=== PATIENT | female | born 1975 | race Caucasian/White ===

== ENCOUNTER 2017-10-21 17:56 | Observation (INO) | payer SELFPAY ==
[2017-10-21] MEDS ORDERED: Aspirin Low Dose CHEW TAB* 81 MG PO ONE (18:08)
[2017-10-21] MEDS ORDERED: NS 0.9% 1000 ML* 1,000 ML IV SCH (18:15)
[2017-10-21] MEDS ORDERED: Nitroglycerin TAB 0.4 MG* 0.4 MG TAB SL ONE (18:15)
[2017-10-21 18:33] LABS: ABS Basophils 0.1 10^3/ul (0-0.2); ABS Eosinophils 0.1 10^3/ul (0-0.6); ABS Lymphocytes 2.8 10^3/ul (1.0-4.8); ABS Monocytes 0.5 10^3/ul (0-0.8); ABS Neutrophils 5.9 10^3/ul (1.5-7.7); ABS Nucleated RBC 0 10^3/ul; Eosinophil % 0.7 % (0-6); Hematocrit 51 % (35-47); Hemoglobin 17.4 g/dl (12.0-16.0); Lymphocyte % 30.3 % (25-47); Mean Corpuscular HGB Conc 35 g/dl (31-36); Mean Corpuscular Hemoglobin 30 pg (27-31); Mean Corpuscular Volume 87 fL (80-97); Mean Platelet Volume 7 um3 (7.4-10.4); Nucleated Red Blood Cells % 0.2; Platelet Count 392 10^3/ul (150-450); Red Cell Distribution Width 14 % (10.5-15); White Blood Count 9.4 10^3/ul (3.5-10.8)
[2017-10-21] MEDS ORDERED: nitroGLYCERIN DRIP* 25,000 MCG/250 ML BTL IV ONE (18:50)
[2017-10-21 18:54] LABS: EGFR Non-African American 88.8 (>60)
--- NOTE | 2017-10-21 18:58 | RAD ---
INDICATION: Chest pain COMPARISON: Similar chest x-ray March 19, 2007 TECHNIQUE: Single AP portable view of the chest was obtained. FINDINGS: Image quality is compromised due to the relative inferiority of a portable chest x-ray. The heart and mediastinum exhibit normal size and contour. The lungs are grossly clear. There is no evidence of a large pleural effusion. Visualized bones are normal for the patient's age. IMPRESSION: No radiographic evidence for acute cardiopulmonary abnormality on this portable chest x-ray.
[2017-10-21] MEDS ORDERED: Nitroglycerin 2% OINT* 1 GM PAK TOPICAL ONE ×2 (19:28→20:25)
--- NOTE | 2017-10-21 19:31 | HP ---
H&P (Free Text) History and Physical: PCP: none Date/Time: 10/21/2017 1730 CC: L neck pain HPI: Mrs Altamirano is a 41YO obese female 1PPD smoker w/ HX significant HTN for which she has self-D/C'd medications as she "has no insurance". Today around noon she developed L neck aching radiating to the L ear w/ associated N/T of the L fingers, but she is unsure which fingers. She tried OTC pain relievers without improvement, became concerned and called EMS. They gave her SL nitro en route which completely resolved her pain. She did develop some milder L ear pain after arriving to ED, but it spontaneously resolved before receiving another dose of SL nitro. She denies chest pain, SOB, palpitations, N/V, sweats , light-headedness, focal W/N/T, or change in speech/swallow/vision. She is currently symptom-free. Systolic BPs have been 170-200s. PMedHx HTN, not on medications Ambulatory Orders Acetaminophen [Tylenol Extra Strength] 1,000 mg PO Q4HR PRN 07/06/16 Ibuprofen TAB* [Advil TAB*] 200 mg PO Q8H PRN 10/21/17 Allergies MS Hydrochlorothiazide [Hydrochlorothiazide] Allergy (Severe, Verified 07/06/16 17:50) See Comment PARALYSIS - HYPOKALEMIA MS Lisinopril [Lisinopril] Allergy (Severe, Verified 07/06/16 18:33) Swelling PSurgHx none SocHx: 1PPD smoking, 6-12 alcoholic drinks weekly, denies recreational drugs; lives with her ; full code status FamHx: strongly positive for early onset CAD ROS: as above, otherwise reviewed and all were negative vitals: Vital Signs Temp 36.6 C 10/21/17 18:01 Pulse 82 10/21/17 19:05 Resp 16 10/21/17 19:05 BP 193/119 10/21/17 19:05 Pulse Ox 95 10/21/17 19:05 Intake & Output 10/20/17 10/21/17 10/21/17 23:59 11:59 23:59 Weight 102.058 kg Constitutional: NAD, normally developed, obese white female HEENM: atraumatic; sclera/conjunctiva: anicteric/clear; hearing: clinically mildly decreased; AU tympanic membranes are clear; oropharynx: clear, mucosa moist Neck: soft tissue: non-tender to palpation; thyroid: normal Pulmonary: clear to auscultation bilaterally, good aeration, no accessory muscle use CV: RR/RR, normal S1S2, no carotid bruit, no jugular venous distention, 2+ B DP/ PT, no edema Abdominal: soft, non-distended, non-tender, no rebound/guarding/rigidity, normoactive bowel sounds, no hepatosplenomegaly or masses, no costovertebral angle tenderness Musculoskeletal: general: grossly intact, no tenderness w/ palpation Integumental: normal appearance and texture of exposed skin Neurological cranial nerves III/IV/: symmetric light reflex, EOMI/PERRLA V: intact facial sensation & mastication VII: intact facial symmetry VIII: hearing clinically mildly decreased IX/X: symmetric palatal motion, no dysarthria XII: midline tongue protrusion, normal voice articulation motor LUE: 4+/5 proximally, distally, & vegetable preparer strength RUE: 4+/5 proximally, distally, & vegetable preparer strength LLE: 4+/5 proximally & distally RLE: 4+/5 proximally & distally Psychiatric orientation: AA&O to PPS affect: calm mood: cooperative eye contact: fair content: reliable responses: timely insight: poor Testing: Lab Results 10/21/17 10/21/17 10/21/17 Range/Units 18:20 18:20 18:20 WBC 9.4 (3.5-10.8) 10^3/ul RBC 5.80 H (4.0-5.4) 10^6/ul Hgb 17.4 H (12.0-16.0) g/dl Hct 51 H (35-47) % MCV 87 (80-97) fL MCH 30 (27-31) pg MCHC 35 (31-36) g/dl RDW 14 (10.5-15) % Plt Count 392 (150-450) 10^3/ul MPV 7 L (7.4-10.4) um3 Neut % (Auto) 62.4 (38-83) % Lymph % (Auto) 30.3 (25-47) % [place] % (Auto) 5.5 (1-9) % Eos % (Auto) 0.7 (0-6) % Baso % (Auto) 1.1 (0-2) % Absolute Neuts (auto) 5.9 (1.5-7.7) 10^3/ul Absolute Lymphs (auto) 2.8 (1.0-4.8) 10^3/ul Absolute Monos (auto) 0.5 (0-0.8) 10^3/ul Absolute Eos (auto) 0.1 (0-0.6) 10^3/ul Absolute Basos (auto) 0.1 (0-0.2) 10^3/ul Absolute Nucleated RBC 0 10^3/ul Nucleated RBC % 0.2 INR (Anticoag Therapy) 0.90 (0.77-1.02) APTT 29.1 (26.0-36.3) seconds D-Dimer, Quantitative < 200 (Less Than 230) ng/mL Sodium (133-145) mmol/L Potassium (3.5-5.0) mmol/L Chloride (101-111) mmol/L Carbon Dioxide (22-32) mmol/L Anion Gap (2-11) mmol/L BUN (6-24) mg/dL Creatinine (0.51-0.95) mg/dL Est GFR ( Amer) (>60) Est GFR (Non-Af Amer) (>60) BUN/Creatinine Ratio (8-20) Glucose (70-100) mg/dL Lactic Acid (0.5-2.0) mmol/L Calcium (8.6-10.3) mg/dL Magnesium (1.9-2.7) mg/dL Total Bilirubin (0.2-1.0) mg/dL AST (13-39) U/L ALT (7-52) U/L Alkaline Phosphatase (34-104) U/L Total Creatine Kinase (10-223) U/L CK-MB (CK-2) (0.6-6.3) ng/mL Myoglobin (14.3-65.8) ng/mL Troponin I (<0.04) ng/mL B-Natriuretic Peptide 91 ( - 100) pg/mL Total Protein (6.4-8.9) g/dL Albumin (3.2-5.2) g/dL Globulin (2-4) g/dL Albumin/Globulin Ratio (1-3) Urine Opiates Screen (None Detect) Ur Barbiturates Screen (None Detect) Ur Phencyclidine Scrn (None Detect) Ur Amphetamines Screen (None Detect) U Benzodiazepines Scrn (None Detect) Urine Cocaine Screen (None Detect) U Cannabinoids Screen (None Detect) 10/21/17 10/21/17 10/21/17 Range/Units 18:20 18:20 18:58 WBC (3.5-10.8) 10^3/ul RBC (4.0-5.4) 10^6/ul Hgb (12.0-16.0) g/dl Hct (35-47) % MCV (80-97) fL MCH (27-31) pg MCHC (31-36) g/dl RDW (10.5-15) % Plt Count (150-450) 10^3/ul MPV (7.4-10.4) um3 Neut % (Auto) (38-83) % Lymph % (Auto) (25-47) % [place] % (Auto) (1-9) % Eos % (Auto) (0-6) % Baso % (Auto) (0-2) % Absolute Neuts (auto) (1.5-7.7) 10^3/ul Absolute Lymphs (auto) (1.0-4.8) 10^3/ul Absolute Monos (auto) (0-0.8) 10^3/ul Absolute Eos (auto) (0-0.6) 10^3/ul Absolute Basos (auto) (0-0.2) 10^3/ul Absolute Nucleated RBC 10^3/ul Nucleated RBC % INR (Anticoag Therapy) (0.77-1.02) APTT (26.0-36.3) seconds D-Dimer, Quantitative (Less Than 230) ng/mL Sodium 135 (133-145) mmol/L Potassium 3.1 L (3.5-5.0) mmol/L Chloride 101 (101-111) mmol/L Carbon Dioxide 23 (22-32) mmol/L Anion Gap 11 (2-11) mmol/L BUN 6 (6-24) mg/dL Creatinine 0.73 (0.51-0.95) mg/dL Est GFR ( Amer) 114.1 (>60) Est GFR (Non-Af Amer) 88.8 (>60) BUN/Creatinine Ratio 8.2 (8-20) Glucose 142 H (70-100) mg/dL Lactic Acid 2.7 H* (0.5-2.0) mmol/L Calcium 9.3 (8.6-10.3) mg/dL Magnesium 2.1 (1.9-2.7) mg/dL Total Bilirubin 0.90 (0.2-1.0) mg/dL AST 18 (13-39) U/L ALT 29 (7-52) U/L Alkaline Phosphatase 54 (34-104) U/L Total Creatine Kinase 39 (10-223) U/L CK-MB (CK-2) 1.4 (0.6-6.3) ng/mL Myoglobin 16.7 (14.3-65.8) ng/mL Troponin I 0.03 (<0.04) ng/mL B-Natriuretic Peptide ( - 100) pg/mL Total Protein 7.6 (6.4-8.9) g/dL Albumin 4.3 (3.2-5.2) g/dL Globulin 3.3 (2-4) g/dL Albumin/Globulin Ratio 1.3 (1-3) Urine Opiates Screen None detected (None Detect) Ur Barbiturates Screen None detected (None Detect) Ur Phencyclidine Scrn None detected (None Detect) Ur Amphetamines Screen None detected (None Detect) U Benzodiazepines Scrn None detected (None Detect) Urine Cocaine Screen None detected (None Detect) U Cannabinoids Screen None detected (None Detect) ECG, personally reviewed: 3 tracings reviewed; NSR rate 91-99, no ischemia, biphasic T in I; initial tracing was concerning in the anterior leads but is likely artifactual given resolution on 2nd & 3rd tracings CXR, personally reviewed: IMPRESSION: No radiographic evidence for acute cardiopulmonary abnormality on this portable chest x-ray. CT brain WO, personally reviewed: FINDINGS: There is a question of a tiny chronic lacunar infarction in the left basal ganglia. There is no evidence of acute infarction. There is no hemorrhage seen. There is no mass lesion. There is no skull fracture. CTA head/neck, personally reviewed: [place] arteries are patent. There is no arterial occlusion or stenosis. There is no aneurysm identified. No evidence of artriovenous malformation. Visualized portions of the sagittal sinus and transverse sinuses patent. The common carotid arteries and cervical portions of the internal carotid arteries are fully patent. There is no carotid dissection. The vertebral arteries are fully patent. There is no significant vertebral artery stenosis. there is no vertebral artery dissection. Impression: 41F HX HTN off all meds presents with s/s concerning for HTNive urgency more likely TIA than ACS DIAGNOSIS & PLAN Primary HTNive urgency, suspect TIA/less likely ACS : telemetry : 1" nitro paste once : start amlodipine 2.5mg PO daily tonight : PRN hydralazine : trend troponin : supplemental oxygen : ECHO in AM : neurochecks Q2H : Tess Garcia MD cardiology consulted by ED, will evaluate in AM : consider neurology consult in AM : need to establish w/ PCP & take BP meds stressed : supportive care polycythemia, likely 2nd to tobacco use : consider hematology consult : explained risks of thrombosis, ACS, CVA, disability, : advised smoking cessation, low motivation lactic acidosis, likely from severe HTN : trend : no IVFs given HTNive urgency & need to establish BP control Admission Rational: observation for HTNive urgency/TIA DVTp: ALEXIS Code Status: full HCP:
[2017-10-21] MEDS ORDERED: Acetaminophen TAB* 325 MG PO PRN (20:19)
[2017-10-21] MEDS ORDERED: Albuterol 2.5 MG/3 ML NEB.SOL* (0.083%) INH PRN (20:19)
[2017-10-21] MEDS ORDERED: CMCS: Melatonin (NF) 3 MG TAB PO PRN (20:20)
[2017-10-21] MEDS ORDERED: amLODIPine TAB* 5 MG PO ONE (20:23)
[2017-10-21] MEDS ORDERED: Ondansetron INJ* 2 MG/ML VIAL IV PRN (20:23)
--- NOTE | 2017-10-21 21:00 | ED ---
Jovani Herrera Jennifer, scribed for Yo Bradley MD on 10/21/17 at 1841 . HPI Chest Pain - HPI Summary HPI Summary: The patient is a 41 year old female who came to the ED by ambulance with chest pain radiating up the left neck and intermittent numbness in the left arm that began at around 12:00 today. She received nitroglycerin and aspirin in the ambulance and currently denies pain in the ED. She denies nausea, sweatiness, and shortness of breath. The patient has a history of hypertension but does not take medicine for it because she does not have insurance. - History of Current Complaint Chief Complaint: EDChestPainROMI Time Seen by Provider: 10/21/17 18:03 Hx Obtained From: Patient Hx Last Menstrual Period: 07/03/16 Onset/Duration: Started Hours Ago - about 6 hours ago, Still Present Timing: Intermittent - intermittent numbness in left arm Initial Severity: Mild Current Severity: Mild Pain Intensity: 0 Pain Scale Used: 0-10 Numeric Chest Pain Location: Diffuse Chest Pain Radiates: Yes Chest Pain Radiates To:: Arm - left arm, Neck - left neck Character: Other: - Numbness Aggravating Factor(s): Nothing Alleviating Factor(s): Nothing Associated Signs and Symptoms: Positive: Chest Pain. Negative: Shortness of Breath, Nausea, Other: - sweating - Allergy/Home Medications Allergies/Adverse Reactions: Allergies Allergy/AdvReac Type Severity Reaction Status Date / Time MS Hydrochlorothiazide Allergy Severe See Comment Verified 07/06/16 17:50 [Hydrochlorothiazide] MS Lisinopril [Lisinopril] Allergy Severe Swelling Verified 07/06/16 18:33 Home Medications: Home Medications Ibuprofen TAB* [Advil TAB*] 200 mg PO Q8H PRN 10/21/17 [History Confirmed ] PMH/Surg Hx/FS Hx/Imm Hx Endocrine/Hematology History: Denies: Hx Diabetes, Hx Thyroid Disease Cardiovascular History: Reports: Hx Hypertension Denies: Hx Hypercholesterolemia Respiratory History: Reports: Hx Asthma Denies: Hx Chronic Obstructive Pulmonary Disease (COPD) GI History: Comment Only: Hx Ulcer - gerd Psychiatric History: Reports: Hx Anxiety - Surgical History Surgery Procedure, Year, and Place: C section, ANKLE SURGERY (RIGHT) Infectious Disease History: No Infectious Disease History: Denies: Hx Hepatitis, Hx Human Immunodeficiency Virus (HIV), History Other Infectious Disease, Traveled Outside the [place] in Last 30 Days - Family History Known Family History: Positive: Hypertension - Paternal, Diabetes - Social History Alcohol Use: Weekly Substance Use Type: Reports: None Smoking Status (MU): Heavy Every Day Tobacco Smoker Type: Cigarettes Amount Used/How Often: 1/2 ppd or more Review of Systems Negative: Skin Diaphoresis Positive: Chest Pain Negative: Shortness Of Breath Negative: Nausea Positive: Numbness - left arm All Other Systems Reviewed And Are Negative: Yes Physical Exam - Summary Physical Exam Summary: General: well-appearing, no pain distress Skin: warm, color reflects adequate perfusion, dry Head: normal Eyes: EOMI, STEFFANIE ENT: normal Neck: supple, nontender Respiratory: CTA, breath sounds present Cardiovascular: RRR Abdomen: soft, nontender Bowel: present Musculoskeletal: normal, strength/ROM intact Neurological: normal, sensory/motor intact, A&O x3 Psychological: affect/mood appropriate Triage Information Reviewed: Yes Vital Signs On Initial Exam: Initial Vitals Temp Pulse Resp BP Pulse Ox 98 F 94 18 182/118 95 10/21/17 18:01 10/21/17 18:01 10/21/17 18:01 10/21/17 18:01 10/21/17 18:01 Vital Signs Reviewed: Yes Diagnostics - Vital Signs Vital Signs Temp Pulse Resp BP Pulse Ox 10/21/17 18:05 93 97 10/21/17 18:01 98 F 94 18 182/118 95 - Laboratory Lab Results: Lab Results 10/21/17 Range/Units 18:20 WBC 9.4 (3.5-10.8) 10^3/ul RBC 5.80 H (4.0-5.4) 10^6/ul Hgb 17.4 H (12.0-16.0) g/dl Hct 51 H (35-47) % MCV 87 (80-97) fL MCH 30 (27-31) pg MCHC 35 (31-36) g/dl RDW 14 (10.5-15) % Plt Count 392 (150-450) 10^3/ul MPV 7 L (7.4-10.4) um3 Neut % (Auto) 62.4 (38-83) % Lymph % (Auto) 30.3 (25-47) % [place] % (Auto) 5.5 (1-9) % Eos % (Auto) 0.7 (0-6) % Baso % (Auto) 1.1 (0-2) % Absolute Neuts (auto) 5.9 (1.5-7.7) 10^3/ul Absolute Lymphs (auto) 2.8 (1.0-4.8) 10^3/ul Absolute Monos (auto) 0.5 (0-0.8) 10^3/ul Absolute Eos (auto) 0.1 (0-0.6) 10^3/ul Absolute Basos (auto) 0.1 (0-0.2) 10^3/ul Absolute Nucleated RBC 0 10^3/ul Nucleated RBC % 0.2 Result Diagrams: 10/21/17 18:20 10/21/17 18:20 Lab Statement: Any lab studies that have been ordered have been reviewed, and results considered in the medical decision making process. - Radiology CXR Xray Interpretation: No Acute Changes - No radiographic evidence for acute cardiopulmonary abnormality on this portable chest x-ray. Dr. Bradley has reviewed this report. Radiology Interpretation Completed By: Radiologist - EKG 17:56 Cardiac Rate: NL EKG Rhythm: Sinus Rhythm - 91 BPM Ectopy: None EKG Interpretation: ST elevation in anterior leads, LVH 17:57 Cardiac Rate: NL EKG Rhythm: Sinus Rhythm - 93 BPM Ectopy: None EKG Interpretation: ST elevation in anterior leads, LVH EKG Comparison: No Significant Change 18:23 Cardiac Rate: NL EKG Rhythm: Sinus Rhythm - 99 BPM Ectopy: None EKG Interpretation: ST elevation in anterior leads EKG Comparison: No Significant Change Chest Pain Course/Dx - Course Course Of Treatment: BP noted and advised to follow up with PCP. Allergies noted. Medications reviewed. DISCUSSED WITH BOTH DR ASENCOI AND DR MCKEON. PATIENT CHEST PAIN FREE IN THE ED. NO SIGNIFICANT CHANGES IN THE EKG IN THE ED. WITH A NEGATIVE TROPONIN AFTER 5 HOURS OF PAIN, WILL TREAT THE HYPERTENSION AND ADMIT TO THE HOSPITALIST. - Diagnoses Provider Diagnoses: Uncontrolled hypertension, Chest pain, Neck pain - Provider Notifications Discussed Care Of Patient With: Martín Asencio Time Discussed With Above Provider: 19:39 Instructed by Provider To: Other - Dr. Asencio, cardiology, recommended consulting Dr. Arceo, interventionalist. Dr. Arceo, interventionalist, recommends keeping the patient's chest pain free and controlling her hypertension. If troponin is positive, call back Dr. Arceo. If troponin is negative, continue to treat for hypertension and admit to hospitalist. - Critical Care Time Critical Care Time: 30-74 min Discharge - Discharge Plan Condition: Stable Disposition: ADMITTED TO [facility] Referrals: Shon Duarte MD [Primary Care Provider] - 3 Days Additional Instructions: Your blood pressure was elevated during todays visit; please follow up with your primary care provider within a week for further evaluation. The documentation as recorded by the Jovani peres Jennifer accurately reflects the service I personally performed and the decisions made by me, Yo Bradley MD.
[2017-10-21] MEDS ORDERED: Iohexol 350* (CONTRAST) 500 ML MDV IV ONE (21:10)
[2017-10-21] MEDS: Docusate CAP* 100 MG PO SCH (22:14)
[2017-10-21] MEDS: hydrALAZINE IV* 20 MG/ML VIAL IV PRN (22:58)
[2017-10-22 05:27] LABS: Hematocrit 44 % (35-47); Mean Corpuscular HGB Conc 34 g/dl (31-36); Mean Corpuscular Hemoglobin 30 pg (27-31); Mean Corpuscular Volume 87 fL (80-97); Mean Platelet Volume 7 um3 (7.4-10.4); Platelet Count 325 10^3/ul (150-450); Red Blood Count 5.04 10^6/ul (4.0-5.4); Red Cell Distribution Width 14 % (10.5-15); White Blood Count 9.7 10^3/ul (3.5-10.8)
[2017-10-22 05:46] LABS: EGFR Non-African American 103.3 (>60)
[2017-10-22] MEDS ORDERED: Omeprazole CAP* 20 MG PO SCH (06:00)
[2017-10-22] MEDS ORDERED: amLODIPine TAB* 5 MG PO SCH (09:00)
[2017-10-22] MEDS ORDERED: Aspirin EC Low Dose* 81 MG TAB.EC PO SCH (09:00)
--- NOTE | 2017-10-22 09:02 | RAD ---
CPT II: CPT II Codes: 3100F INDICATION: Chest pain radiating up left neck and down left arm. COMPARISON: None TECHNIQUE: A CT angiogram of the head and neck was performed with 80 cc of Omnipaque 350. Contiguous axial sections were obtained from the thoracic inlet through the [place]. Images were reconstructed in the sagittal, coronal planes and in a 3-D volume rendered format. The distal cervical internal carotid artery diameter is used as the denominater for stenosis measurement. CTA NECK: The common and internal carotid arteries are patent without hemodynamically significant stenosis. Right: The common carotid artery measures 7 mm in diameter. Above the carotid bifurcation the internal carotid artery measures 6 mm in diameter. This yields approximately 16% degree stenosis however there is no significant atherosclerotic disease at the carotid bulb. Left: Below the carotid bulb the common carotid artery measures 6 mm in short axis diameter. The carotid bulb measures just under 7 mm in diameter yielding 0% degree stenosis. The vertebral arteries are patent without gross abnormality. CTA of the brain: The internal carotid, anterior and middle cerebral arteries appear are patent without high grade stenosis or occlusion. The vertebral, basilar and posterior cerebral arteries appear patent without high grade stenosis or occlusion. The [place] is complete with bilateral posterior communicating arteries identified. No focal luminal filling defect, aneurysm or vascular malformation is seen. NON-ARTERIAL FINDINGS: There is mild mucosal thickening at the dependent portion of the left maxillary sinus. IMPRESSION: Normal CT angiography of the head and neck.
[2017-10-22] MEDS: Docusate CAP* 100 MG PO SCH (09:39)
[2017-10-22] MEDS: hydrALAZINE IV* 20 MG/ML VIAL IV PRN (12:12)
[2017-10-22] MEDS ORDERED: amLODIPine TAB* 5 MG PO ONE (12:23)
--- NOTE | 2017-10-22 13:06 | ECHO ---
Patient: ERA GRAMAJO [facility] Rec#: [id number] : 1975 Date: 10/22/2017 Age: 41y Height: 167.64 cm / 66.0 in Weight: 91.17 kg / 200.9 lbs Sex: F BSA: 2 Room#: [facility] Admit Date#: 10/21/2017 Type: Inpatient Referring: Sherif Sandoval MD Reading: Martín Garcia MD Production Posting Clerk: Sophia OroscoALLEN CC: Shon Duarte MD Transthoracic Echocardiogram Indication: Chest pain BP: 149/71 HR: 64 Rhythm: NSR Findings History: HTN non-compliant with meds, obese, smoker. Technical Comments: The study quality is fair. The study is technically limited due to patient body habitus. Completed at 1300. Left Ventricle: The left ventricular chamber size is normal. Moderate concentric left ventricular hypertrophy is observed. Global left ventricular wall motion and contractility are within normal limits. There is normal left ventricular systolic function. The estimated ejection fraction is 60-65%. There is no consistent Doppler evidence of clinically significant diastolic dysfunction. Left Atrium: The left atrium is mildly dilated. Right Ventricle: The right ventricle wall thickness is mildly increased. The right ventricular cavity size is normal. The right ventricular global systolic function is normal. Right Atrium: The right atrium is mildly dilated. Aortic Valve: The aortic valve is trileaflet. The aortic valve leaflets are mildly thickened. There is a trace of aortic regurgitation. There is borderline aortic stenosis present. Mitral Valve: The mitral valve leaflets are mildly thickened. There is a trace of mitral regurgitation. There is no evidence of mitral stenosis. Tricuspid Valve: The tricuspid valve leaflets are normal. There is trace tricuspid regurgitation. The right ventricular systolic pressure is estimated at 22 mmHg. There is evidence that pulmonary hypertension may be underestimated. There is no tricuspid stenosis. Pulmonic Valve: The pulmonic valve appears normal. There is a trace pulmonic regurgitation. There is no pulmonic stenosis. Pericardium: There is no significant pericardial effusion. A pericardial fat pad is visualized. Aorta: There is no dilatation of the ascending aorta. There is no dilatation of the aortic arch. The aortic root is normal in size. Pulmonary Artery: The main pulmonary artery appears normal. Venous: The inferior vena cava appears normal in size. There is a greater than 50% respiratory change in the inferior vena cava dimension. Summary: There was not any prior study for comparison. Conclusions The left ventricular chamber size is normal. Moderate concentric left ventricular hypertrophy is observed. The estimated ejection fraction is 60-65%. The left atrium is mildly dilated. There is a trace of aortic regurgitation. There is borderline aortic stenosis present. There is a trace of mitral regurgitation. There is trace tricuspid regurgitation. There is a trace pulmonic regurgitation. Measurements Name Value Normal Range RVIDd (AP) 2D 3.5 cm (0.9 - 2.6) RVDdMajor (2D) 3.7 cm (2.2 - 4.4) RAd ISD 4CH 4.4 cm (3.4 - 4.9) RA (A4C)W 4.7 cm (2.9 - 4.6) IVSd (2D) 1.4 cm (0.6 - 1) LVPWd (2D) 1.5 cm (0.6 - 1) LVIDd (2D) 4.3 cm (3.6 - 5.4) LVIDs (2D) 3 cm - LV FS (2D) 29 % (25 - 45) Aortic Annulus 2 cm (1.4 - 2.6) Ao root diameter (2D) 2.8 cm (2.1 - 3.5) Ascending Ao 3 cm (2.1 - 3.4) Aortic arch 2.2 cm (1.8 - 3.4) LA dimension (AP) 2D 3.7 cm (2.3 - 3.8) LAd ISD 4CH 5.7 cm (2.9 - 5.3) LA ISD 4CH W 4.8 cm (2.5 - 4.5) Name Value Normal Range LA ESV SP 4CH (A/L) 75 ml - LA ESV SP 2CH (A/L) 62 ml - LA ESV BP (A/L) 70 ml - LA ESV BP (A/L) index 35 ml/m2 - LA ESV SP 4CH (MOD) 71 ml - LA ESV SP 2CH (MOD) 57 ml - Name Value Normal Range MV E-wave Vmax 0.78 m/sec - MV deceleration time 154.1 msec - MV A-wave Vmax 0.93 m/sec - MV E:A ratio 0.84 ratio - LV septal e' Vmax 0.06 m/sec - LV lateral e' Vmax 0.06 m/sec - LV E:e' septal ratio 13 ratio - LV E:e' lateral ratio 13 ratio - Name Value Normal Range AV Vmax 2.14 m/sec - AV VTI 34.5 cm - AV peak gradient 18.48 mmHg - AV mean gradient 8.5 mmHg - LVOT diameter 2 cm - LVOT Vmax 1.3 m/sec - LVOT VTI 24.87 cm - LVOT peak gradient 7.23 mmHg - LVOT mean gradient 4.66 mmHg - DOI (VTI) 0.72 ratio - TALISHA (continuity Vmax) 1.9 cm2 - TALISHA (continuity VTI) 2.3 cm2 - JACLYN Vmax 1.2 m/sec - Name Value Normal Range TR Vmax 2.1 m/sec - TR peak gradient 19 mmHg - RAP 3 mmHg - RVSP 22 mmHg - IVC diameter 1.7 cm - Name Value Normal Range PV Vmax 1.1 m/sec - PV peak gradient 4.86 mmHg -
[2017-10-22] MEDS ORDERED: hydrALAZINE TAB* 25 MG PO SCH (15:00)
[2017-10-22 15:21] VITALS: BP 178/94
--- NOTE | 2017-10-22 23:39 | CONS ---
CC: Hospitalist Service; Dr. Garcia CARDIOLOGY CONSULTATION: DATE OF CONSULTATION: 10/22/17 HISTORY OF PRESENT ILLNESS: I was asked by hospitalist service to see this 41- year- old female patient with longstanding history of systemic arterial hypertension, 1 pack per day smoker for many years. She states that about 7 months ago, she stopped her blood pressure medications. According to her, she was taking 3 blood pressure medications, she does not recall the names because she had no insurance. Apparently, yesterday she had some ear pain, some neck pain on the left side, radiated to her left ear and presented to the emergency room. She was found to have significant blood pressure elevation with systolic between 170 to 200. She had some borderline ST abnormalities probably consistent with hypertensive heart disease. Cardiology consult was further requested because of her hypertension and EKG abnormalities. She gives no symptoms of chest pain. No nausea. No vomiting. No hematochezia. No skin rash. No abdominal pain. No syncope. No fever. No chills. No swelling in the lower extremities. No orthopnea is appreciated. She gives no history of diabetes mellitus. No hyperlipidemia. She does have obesity. She is not aware of a sleep apnea evaluation. PAST MEDICAL HISTORY: Includes systemic arterial hypertension. PAST SURGICAL HISTORY: Unremarkable. MEDICATIONS: She was not on medications as an outpatient. Her medications as an inpatient include: 1. Acetaminophen or Tylenol 650 mg p.o. q.6 hours p.r.n. 2. Albuterol. 3. Amlodipine 10 mg daily. 4. Aspirin 81 mg daily. 5. Hydralazine 10 mg IV q.4 hours p.r.n. for hypertension. 6. Omeprazole 20 mg daily. 7. Zofran 4 mg IV q.6 hours. ALLERGIES: She is allergic to HYDROCHLOROTHIAZIDE, severe giving her hypokalemia; LISINOPRIL, severe giving her swelling. FAMILY HISTORY: She states that her father and his brother had history of coronary artery disease. SOCIAL HISTORY: One pack a day of smoking. She drinks alcohol on occasion. No history of illicit drug use. She lives with her . REVIEW OF SYSTEMS: Review of all other systems essentially is negative. PHYSICAL EXAMINATION: On exam, she is awake, alert, and oriented. She is not in acute distress. Vital Signs: Current blood pressure is 183/93, pulse 72, she is in sinus rhythm. She is afebrile. Head: On exam, normocephalic, atraumatic head. Ears, Nose, and Throat: Essentially benign. Neck: Supple. JVP is not elevated. No carotid bruits. No masses in the neck is appreciated. Chest: Clear to auscultation. No rales, no wheezes, no added sounds appreciated. Heart: Normal. Regular S1, S2. No added sounds. No gallops, no rubs. Abdomen: Benign, soft. Positive bowel sounds. Extremities: No edema. No cyanosis. No clubbing. Skin exam is normal. Psych: Normal affect and mood. HEEL SPRAYER: No focal deficit is appreciated. LABORATORY DATA/DIAGNOSTIC STUDIES: White blood cell 9.7, hemoglobin 15, hematocrit 44, platelets are 325,000. Sodium 134; potassium 3.5, it was 3.1; chloride 103. BUN 5, creatinine 0.64. Glucose 107. Troponins were 0.04 and 0.06. She is chest pain free. Her serial EKGs demonstrated LVH with secondary ST-T abnormalities. No definite ST elevations appreciated. Initial troponin 0.03. LFTs are normal. CK is normal. CK-MB is normal. Her chest x-ray, no cardiopulmonary disease. Her CTA of the head, normal CT angio of the head. IMPRESSION: The patient is a 41-year-old female with: 1. Known history of systemic arterial hypertension. She stopped her blood pressure medications on her own about 7 months ago because "no insurance." 2. Hypertensive urgency. 3. Abnormal EKG most probably related to hypertensive heart disease. 4. Obesity. 5. Low potassium raising concerns for adrenal disease. 6. Her echo showed her to have moderate left ventricular hypertrophy with hypertensive heart disease and normal left ventricular systolic function. EF 60 % to 65%. 7. Trace aortic insufficiency, borderline aortic stenosis and trace mitral insufficiency, trace tricuspid insufficiency. 8. Unknown sleep apnea status. PLAN: I discussed her with Dr. Thompson. This patient needs to reestablish blood pressure medications, I made her aware of the seriousness of her hypertension and hypertensive heart disease and she needs to be on regular blood pressure medications, Norvasc is currently at 10 mg once a day. I do recommend hydralazine p.o., starting at 25 mg q.8 hours and follow her blood pressure very closely. She needs to do aggressive lifestyle modification with low-salt low-fat diet, attempts lose to weight, physical activity as tolerated. She needs to quit smoking, which I talked to her about this. Given her low potassium, we will obtain serum cortisol level and we will obtain TSH level as well. At some point once her blood pressure is well controlled, she will need risk stratification with noninvasive stress testing given her comorbidities and risk factors for coronary artery disease. I answered all her concerns and questions up to her satisfaction. [id number]/[facility] #: [id number] BETO
[2017-10-23] MEDS ORDERED: amLODIPine TAB* 5 MG PO SCH (09:00)
--- NOTE | 2017-10-23 11:39 | DS ---
DISCHARGE SUMMARY: DATE OF ADMISSION: 10/21/17 DATE OF DISCHARGE: 10/22/17 ADMITTING PROVIDER: Sherif Sandoval MD ATTENDING PHYSICIAN: Niraj Thompson MD PRIMARY CARE PHYSICIAN: None, has been discharged from the practice of Dr. Duarte given her nonmedical insurance status. CHIEF COMPLAINT: Left neck pain. PRINCIPAL DIAGNOSIS: Hypertensive urgency. HISTORY OF PRESENT ILLNESS AND HOSPITAL COURSE: Aleida Altamirano is a 41-year-old obese, 1-pack per day smoker with history of hypertension, previously on amlodipine and a diuretic for which she does not recall (she has also prior been on lisinopril, but had poor reaction) and she has been off that for approximately 7 months as she lost her insurance. On the day of admission, she developed left neck pain radiating to the left ear and was associated with some numbness and tingling of her left fingers, which she often gets some similar paresthesias when she gets anxious. She tried [id number] pain relievers without relief, got sublingual nitro with EMS en route and her pain had resolved by a presentation to the ED. Her blood pressures initially were found to be 182/118 and peaked at 203/123. She was admitted for a hypertensive urgency. She got an additional sublingual nitro in the emergency room, nitroglycerin 1-inch of 2% ointment was placed on her chest. She denied chest pain, chest tightness or shortness of breath and was started on amlodipine 2.5 mg that night. She had some initial EKGs, which demonstrated some repolarization abnormalities anteriorly initially and then eventually resolved into some T-wave inversions V5 through V6. Dr. Garcia of Cardiology consulted on hospital day #2. She had gotten a head CT/noncontrast brain, which showed patent vertebral arteries, patent carotid arteries without hemodynamically significant stenosis. A normal CT angiography of the head and neck on the imaging on-call, read of that study there was some concern for a possible chronic lacunar infarct of the left basal ganglia that was tiny. She had an echocardiogram done on hospital day #2, which showed preserved ejection fraction 60% to 65%, there was no consistent Doppler evidence of clinically significant diastolic dysfunction. She had moderate concentric left ventricular hypertrophy. She had trace mitral, tricuspid and pulmonic regurgitations and aortic regurgitations. The patient was still hypertensive. On hospital day #2, her amlodipine was increased to a total of 10 mg daily and then addition of hydralazine 25 mg p.o. t.i.d. q.8 hours. She was noted by Dr. Garcia to be hypokalemic initially at 3.1 on admission and he recommended TSH and cortisol testing, which were 3.9 and 7.55 respectively. He also recommended persuing evaluation of renal artery stenosis, pheochromocytoma and other etiologies of hypertension. The patient has some degree of what mother described as social anxiety disorder, was wanting to leave the hospital almost immediately on hospital day #2 and would not consent to stay for any further testing, in fact got quite distraught upset with even the prospect of staying another day in the hospital. She is being discharged with followup strongly encouraged (and emphasized with mother who is quite understanding). The patient needs to get further evaluation and treatment for her high blood pressure and reestablish care with a primary care physician as soon as possible. She was recommended getting an outpatient sleep study and nuclear stress test by Dr. Garcia as well and of course, smoking cessation was strongly encouraged, though she was not amenable to stop smoking "right now." Her troponins of note were 0.03, 0.04 and 0.06 and she did not consent to stay overnight for nuclear stress testing. DISCHARGE MEDICATIONS: Include: 1. Amlodipine 10 mg p.o. daily (new). 2. Aspirin 81 mg daily (new). 3. Hydralazine 25 mg p.o. t.i.d. (new). 4. Tylenol 1000 mg p.o. q.4 hours p.r.n., max dose 4 g daily (old). DISCHARGE DIET: Heart healthy. ACTIVITY LEVEL: No restrictions. FOLLOWUP: Please establish care with a new primary care provider within 5 days. I strongly encouraged outpatient nuclear stress testing and Dr. Garcia has also recommended sleep study and CT angiogram versus MRI of the bilateral kidneys to rule out other causes of hypertension along with recommendation for a 24-hour urine study for pheochromocytoma workup. TIME SPENT: On discharge 48 minutes. [id number]/[facility] #: [id number] MTDD
== END 2017-10-22 16:06 | disposition home or self-care (01) ==
LOC: ED 17:56 → MEDTELE 21:09
PROVIDERS: ADMIT Hospitalist; ATTEND Internal Medicine
DX: I10 Essential (primary) hypertension (principal); R07.9 Chest pain, unspecified; M54.2 Cervicalgia; R20.0 Anesthesia of skin; F17.210 Nicotine dependence, cigarettes, uncomplicated; Z86.79 Personal history of other diseases of the circulatory system; Z79.82 Long term (current) use of aspirin
CPT/HCPCS: 36415; 70496; 70498; 71045; 80048; 80053; 80307; 82533; 82550; 82553; 83605; 83735; 83874; 83880; 84443; 84484; 85025; 85027; 85379; 85610; 85730; 93005; 93306; 94760; 96365; 96366; 99285; 99406; A9270-GY; G0378; J0360; Q9967

== ENCOUNTER 2018-09-14 16:55 | Emergency (ER) | payer SELFPAY ==
--- NOTE | 2018-09-14 17:22 | UC ---
Dental HPI - HPI Summary HPI Summary: 42-year-old female presents with 4 day history of right upper dental pain. Describes as a constant severe throbbing. Aggravated by cold. Denies alleviating factors. Has tried ibuprofen without relief. Does not have a dentist appointment scheduled at this time. Denies fever, chills, facial swelling, trismus, dysphagia, or difficulty breathing. - History of Current Complaint Chief Complaint: UCDentalProblem Stated Complaint: TOOTH ACHE Time Seen by Provider: 09/14/18 17:03 Hx Obtained From: Patient Hx Last Menstrual Period: 07/03/16 Pain Intensity: 10 - Allergies/Home Medications Allergies/Adverse Reactions: Allergies Allergy/AdvReac Type Severity Reaction Status Date / Time hydrochlorothiazide Allergy Anaphylatic Verified 09/14/18 17:04 Shock lisinopril Allergy Anaphylatic Verified 09/14/18 17:04 Shock PMH/Surg Hx/FS Hx/Imm Hx Cardiovascular History: Hypertension, Other - LVH Psychological History: Anxiety - Surgical History Surgical History: Yes Surgery Procedure, Year, and Place: C section, ANKLE SURGERY (RIGHT) - Family History Known Family History: Positive: Hypertension - Paternal, Diabetes - Social History Occupation: Unemployed Lives: With Family Alcohol Use: Weekly Substance Use Type: None Smoking Status (MU): Heavy Every Day Tobacco Smoker Type: Cigarettes Amount Used/How Often: 1/2 ppd or more - Immunization History Hx Tetanus, Diphtheria Vaccination: Yes Review of Systems All Other Systems Reviewed And Are Negative: Yes Constitutional: Negative: Fever, Chills Eyes: Negative: Drainage, Eye Redness ENT: Positive: Dental Pain - See HPI. Negative: Sore Throat, Ear Ache, Nasal Discharge, Sinus Congestion, Sinus Pain/Tenderness Respiratory: Negative: Shortness Of Breath Cardiovascular: Negative: Chest Pain Gastrointestinal: Negative: Abdominal Pain, Vomiting, Diarrhea, Nausea Is Patient Immunocompromised?: No Physical Exam - Summary Physical Exam Summary: GENERAL APPEARANCE: Well developed, obese, alert and cooperative female who appears to be in discomfort holding the right side of her face. HEAD: Atraumatic. normocephalic. No facial swelling noted. EYES: Conjunctiva clear. No discharge. Vision is grossly intact. EARS: External auditory canals and tympanic membranes clear, hearing grossly intact. NOSE: No nasal discharge. THROAT: Pharynx normal. No inflammation, swelling, exudate, or lesions. Multiple dental caries with significant decay of several teeth including fractured right first upper molar. Mild gingival erythema without induration, fluctuance, or drainage noted. NECK: Neck supple, non-tender without lymphadenopathy. CARDIAC: Normal S1 and S2. No S3, S4 or murmurs. Rhythm is regular. There is no peripheral edema, cyanosis or pallor. Extremities are warm and well perfused. Capillary refill is less than 2 seconds. LUNGS: Clear to auscultation and percussion without rales, rhonchi, wheezing or diminished breath sounds. ABDOMEN: Positive bowel sounds. Soft, nondistended, nontender. No guarding or rebound. No masses or hepatosplenomegally. MUSKULOSKELETAL: ROM intact to all extremities. No joint erythema or tenderness. Normal muscular development. Normal gait. SKIN: Skin normal color, texture and turgor with no lesions or eruptions. Triage Information Reviewed: Yes Vital Signs: Initial Vital Signs Temp 99.2 F 09/14/18 16:59 Pulse 89 09/14/18 16:59 Resp 19 09/14/18 16:59 BP 199/100 09/14/18 16:59 Pulse Ox 100 09/14/18 16:59 Vital Signs Reviewed: Yes Dental Complaint Course/Dx - Course Course Of Treatment: 42-year-old female presents with 4 day history of right upper dental pain. Describes as a constant severe throbbing. Aggravated by cold. Denies alleviating factors. Has tried ibuprofen without relief. Does not have a dentist appointment scheduled at this time. Denies fever, chills, facial swelling, trismus, dysphagia, or difficulty breathing. Afebrile. Noted to be hypertensive triage however patient appears to be in significant discomfort holding the right side of her face. Exam revealed multiple dental caries with significant decay of several teeth including fractured right first upper molar. Mild gingival erythema without induration, fluctuance, or drainage noted. No facial swelling or trismus. [facility] was consulted and safe to prescribe narcotic pain medication. Reference #: [id number]. Patient was given a dose of hydrocodone-acetaminophen 5 mg\325 mg 1 tablet in the clinic for pain management. Will discharge her on a course of amoxicillin 500 mg twice a day 10 days, recommend continued use of ibuprofen 600 mg every 8 hours for pain, and we'll provide her with a 2 day course of hydrocodone- acetaminophen 5 mg\325 mg 1 tablet 8 hours as needed for severe pain. She was counseled to make a dental appointment at next available appointment. She was given a dental list including local providers who are for no-cost, low cost, and sliding scale payments. She was also counseled to follow up with her primary care provider as soon as possible for recheck of her blood pressure and to discuss restarting her antihypertensives. Warning symptoms were discussed with the patient. Verbalizes understanding and agrees with plan of care. - Differential Dx/Diagnosis Differential Diagnosis/Dx: Dental Abscess, Dental Caries, Fractured Tooth, Odontogenic Pain, Peridontic Disease Provider Diagnosis: Pain due to dental caries Discharge - Sign-Out/Discharge Documenting (check all that apply): Patient Departure All imaging exams completed and their final reports reviewed: No Studies - Discharge Plan Condition: Stable Disposition: HOME Prescriptions: Amoxicillin 500 mg PO BID #20 cap Hydrocodone/Acetaminophen [Hydrocodone-Acetamin 5-325 mg] 1 each PO Q8HR PRN #6 tablet MDD 3 PRN Reason: Pain (Dental) Patient Education Materials: Toothache (ED) Referrals: Shon Duarte MD [Primary Care Provider] - As Soon As Possible (For blood pressure recheck.) Additional Instructions: We will start you on an antibiotic to treat for a possible dental infection. Take amoxicillin 500 mg 1 cap twice a day for 10 days. Be sure to finish the entire prescription even if you are feeling better. Continue to use ibuprofen 600 mg every 8 hours as needed for pain. Take hydrocodone-acetaminophen 5 mg/325 mg 1 tab every 8 hours as needed for severe pain. We gave the first dose in the clinic. This medication causes drowsiness therefore do not take and drive or operate machinery. Use good oral hygiene. Rinse your mouth with a salt water solution after every meal and at bedtime to help remove any debris. Make an appointment with the dentist at next available appointment. You have been provided a list of local dentists including those who offer low-cost, no cost, or sliding scale payments. Please contact them as soon as possible. Your blood pressure was elevated in the clinic today. You should follow up with your primary care provider as soon as possible to have this rechecked and discuss restarting your blood pressure medications. Seek immediate medical attention in the emergency room if you develop fever greater than 100.5 F, have increased facial swelling, are unable to open your mouth, have difficulty swallowing, difficulty breathing, or any worsening of symptoms. - Billing Disposition and Condition Condition: STABLE Disposition: Home
[2018-09-14] MEDS ORDERED: HYDROcodone/ACETAMIN 5-325 MG* 1 TAB PO ONE (17:29)
[2018-09-14 17:56] VITALS: BP 190/112
== END 2018-09-14 18:00 | disposition home or self-care (01) ==
LOC: UCEAST 16:55
DX: K02.9 Dental caries, unspecified (principal); K08.89 Other specified disorders of teeth and supporting structures; I10 Essential (primary) hypertension; F17.210 Nicotine dependence, cigarettes, uncomplicated; Z88.8 Allergy status to other drugs, medicaments and biological substances
CPT/HCPCS: 99212; G0463

== ENCOUNTER 2018-10-02 19:50 | Emergency (ER) | payer SELFPAY ==
[2018-10-02] MEDS ORDERED: oxyCODONE TAB* 5 MG TAB PO ONE (20:14)
[2018-10-02] MEDS ORDERED: cloNIDine TAB* 0.1 MG PO ONE (20:40)
[2018-10-02 21:56] VITALS: BP 261/150
[2018-10-02] MEDS ORDERED: amLODIPine TAB* 5 MG PO ONE (22:02)
[2018-10-02] MEDS ORDERED: Amoxicillin PO (*) 250 MG CAP PO ONE (22:07)
[2018-10-02] MEDS ORDERED: Amoxicillin/Clavulanate TAB* 875 MG PO ONE (22:09)
[2018-10-02] MEDS ORDERED: HYDROcodone/ACETAMIN 5-325 MG* 1 TAB PO ONE (22:13)
--- NOTE | 2018-10-02 22:13 | ED ---
Throat Pain/Nasal Congestion - HPI Summary HPI Summary: Patient presents for sudden onset dental pain and lower right side 4 hours. States filling fell out over [place], has not seen dentist. Elevated but pressure in triage, states history of hypertension but not taking medication due to lack of insurance. Cough, sore throat, CP, SOB, N/V/D, abdominal pain, change in urine, change in BM. - History of Current Complaint Chief Complaint: EDDentalPain Time Seen by Provider: 10/02/18 20:05 Hx Obtained From: Patient Onset/Duration: Sudden Onset Severity: Severe Associated Signs And Symptoms: Positive: Negative Cough: None - Allergies/Home Medications Allergies/Adverse Reactions: Allergies Allergy/AdvReac Type Severity Reaction Status Date / Time hydrochlorothiazide Allergy Anaphylatic Verified 10/02/18 19:59 Shock lisinopril Allergy Anaphylatic Verified 10/02/18 19:59 Shock PMH/Surg Hx/FS Hx/Imm Hx Endocrine/Hematology History: Denies: Hx Diabetes, Hx Thyroid Disease Cardiovascular History: Reports: Hx Hypertension Denies: Hx Hypercholesterolemia Respiratory History: Reports: Hx Asthma Denies: Hx Chronic Obstructive Pulmonary Disease (COPD) GI History: Reports: Hx Gastroesophageal Reflux Disease Comment Only: Hx Ulcer - gerd Sensory History: Denies: Hx Contacts or Glasses, Hx Hearing Aid Opthamlomology History: Denies: Hx Contacts or Glasses Psychiatric History: Reports: Hx Anxiety - Surgical History Surgery Procedure, Year, and Place: C section, ANKLE SURGERY (RIGHT) Infectious Disease History: No Infectious Disease History: Denies: Hx Hepatitis, Hx Human Immunodeficiency Virus (HIV), History Other Infectious Disease, Traveled Outside the [place] in Last 30 Days - Family History Known Family History: Positive: Hypertension - Paternal, Diabetes - Social History Alcohol Use: Weekly Substance Use Type: Reports: None Smoking Status (MU): Heavy Every Day Tobacco Smoker Type: Cigarettes Amount Used/How Often: 1/2 ppd or more Review of Systems Constitutional: Negative Eyes: Negative Positive: Dental Pain Cardiovascular: Negative Respiratory: Negative Gastrointestinal: Negative Genitourinary: Negative Musculoskeletal: Negative Skin: Negative Neurological: Negative Psychological: Normal All Other Systems Reviewed And Are Negative: Yes Physical Exam - Summary Physical Exam Summary: No apical abscess, lesions, mass noted. Multiple dental caries lower rear molars. Triage Information Reviewed: Yes Vital Signs On Initial Exam: Initial Vitals Temp Pulse Resp BP Pulse Ox 98.3 F 91 18 257/155 97 10/02/18 19:52 10/02/18 19:52 10/02/18 19:52 10/02/18 19:52 10/02/18 19:52 Vital Signs Reviewed: Yes Appearance: Positive: Well-Appearing Skin: Positive: Warm Head/Face: Positive: Normal Head/Face Inspection Eyes: Positive: Normal ENT: Positive: Normal ENT inspection Dental: Positive: Gross Decay/Caries @. Negative: Abscess @, Bleeding Neck: Positive: Supple Respiratory/Lung Sounds: Positive: Clear to Auscultation Cardiovascular: Positive: Normal Abdomen Description: Positive: Nontender Musculoskeletal: Positive: Normal Neurological: Positive: Normal Psychiatric: Positive: Normal AVPU Assessment: Alert - Douglas Coma Scale Best Eye Response: 4 - Spontaneous Best Motor Response: 6 - Obeys Commands Best Verbal Response: 5 - Oriented Coma Scale Total: 15 Diagnostics - Vital Signs Vital Signs Temp Pulse Resp BP Pulse Ox 10/02/18 21:55 83 16 261/150 98 10/02/18 20:13 88 20 262/128 97 10/02/18 19:58 252/148 10/02/18 19:52 98.3 F 91 18 257/155 97 - Laboratory Lab Statement: Any lab studies that have been ordered have been reviewed, and results considered in the medical decision making process. EENT Course/Dx - Course Course Of Treatment: Patient presents for sudden onset dental pain and lower right side 4 hours. States filling fell out over [place], has not seen dentist. Elevated but pressure in triage, states history of hypertension but not taking medication due to lack of insurance. Cough, sore throat, CP, SOB, N/ V/D, abdominal pain, change in urine, change in BM. Physical exam:No apical abscess, lesions, mass noted. Multiple dental caries lower rear molars. Blood pressure up to 262/128. Vital signs otherwise unremarkable. Dental pain controlled with oxycodone. Patient accepted by mouth medications for blood pressure but refused IV medication or admission for hypertensive urgency. Risks of elevated blood pressure were discussed with patient repeatedly, but patient repeatedly refused admission or IV treatment. Patient has history of refusing to be admitted for hypertensive urgency on prior visit to the ED. Patient states she does not take hypertensive medications due to lack of insurance. Patient agreed to sign out AMA, but accepted a prescription for by mouth antihypertensives. Patient advised [facility] with [facility] for [facility] of [facility]. Patient refused to be admitted or be treated here in the ED with IV medication for hypertensive urgency. - Diagnoses Provider Diagnoses: Pain, dental, Hypertensive urgency Discharge - Sign-Out/Discharge Documenting (check all that apply): Patient Departure - Discharge Plan Condition: Fair Disposition: AGAINST MEDICAL ADVICE Prescriptions: Amlodipine Besylate [Norvasc 5 mg tab] 5 mg PO DAILY 30 Days #30 tab Amoxicillin/Clavulanate TAB* [Augmentin TAB 875*] 875 mg PO BID 7 Days #14 tab HYDROcodone/ACETAMIN 5-325 MG* [[place] 5-325 TAB*] 1 tab PO TID 2 Days #6 tab MDD 3 tabs Patient Education Materials: Hypertension (ED), Toothache (ED) Referrals: Shon Duarte MD [Primary Care Provider] - [facility] [Outside] Additional Instructions: Follow-up with [facility] for management of hypertension. Follow-up with dentist for evaluation of dental pain. Return to the ED for any new or worsening symptoms. - Billing Disposition and Condition Condition: FAIR Disposition: Against Medical Advice
== END 2018-10-02 22:56 | disposition left against medical advice (07) ==
LOC: ED 19:50
DX: K08.89 Other specified disorders of teeth and supporting structures (principal); I16.0 Hypertensive urgency; Z88.8 Allergy status to other drugs, medicaments and biological substances; F17.210 Nicotine dependence, cigarettes, uncomplicated
CPT/HCPCS: 99282; A9270-GY

== ENCOUNTER 2019-03-02 16:04 | Inpatient (IN) | payer MEDICAID ==
[2019-03-02] MEDS ORDERED: Metoprolol Tartrate IV* 1 MG/ML 5 ML VIAL IV ONE ×2 (16:28→18:34)
[2019-03-02] MEDS ORDERED: Metoprolol Tartrate TAB* 25 MG PO ONE ×2 (16:29→17:41)
[2019-03-02] MEDS ORDERED: LORazepam TAB(*) 1 MG PO ONE (16:29)
--- NOTE | 2019-03-02 16:30 | ED ---
HPI Chest Pain - HPI Summary HPI Summary: 43 year old F brought in by ambulance to [facility] with a chief complaint of sudden onset chest tightness radiating to her left arm since 15:00 today while watching a movie. The patient states that she does not currently have chest pain. The patient rates the pain 0/10 in severity. Symptoms aggravated by nothing. Symptoms alleviated by nothing. Patient reports shortness of breath that has resolved. Patient has hx anxiety. Patient states she has been feeling anxious throughout the day and thought that her symptoms were due to her hx anxiety. Upon EMS arrival, patient was still feeling symptoms. Since arrival to ED, patient's symptoms have resolved. Patient has hx HTN for which she does not take medication. Patient was admitted to [facility] in Oct 2017 for hypertensive urgency. She has not had follow up with cardiology since being discharged in Oct 2017 due to lack of insurance. 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 Patient is a smoker. Today, patient smoked 3 cigarettes which is less than her normal. - History of Current Complaint Time Seen by Provider: 03/02/19 16:15 Hx Obtained From: Patient Onset/Duration: Started Hours Ago - 15:00 today, Resolved Timing: Constant Initial Severity: Moderate Current Severity: None Pain Intensity: 0 Pain Scale Used: 0-10 Numeric Character: Pressure/Squeezing Aggravating Factor(s): Nothing Alleviating Factor(s): Nothing - Additional Pertinent History Primary Care Physician: [id number] - Allergy/Home Medications Allergies/Adverse Reactions: Allergies Allergy/AdvReac Type Severity Reaction Status Date / Time hydrochlorothiazide Allergy Anaphylatic Verified 10/02/18 19:59 Shock lisinopril Allergy Anaphylatic Verified 10/02/18 19:59 Shock Home Medications: Home Medications NK [No Home Medications Reported] 03/02/19 [History Confirmed 03/02/19] PMH/Surg Hx/FS Hx/Imm Hx Previously Healthy: No Endocrine/Hematology History: Denies: Hx Diabetes, Hx Thyroid Disease Cardiovascular History: Reports: Hx Hypertension Denies: Hx Hypercholesterolemia Respiratory History: Reports: Hx Asthma Denies: Hx Chronic Obstructive Pulmonary Disease (COPD) GI History: Reports: Hx Gastroesophageal Reflux Disease Comment Only: Hx Ulcer - gerd Sensory History: Denies: Hx Contacts or Glasses, Hx Hearing Aid Opthamlomology History: Denies: Hx Contacts or Glasses Psychiatric History: Reports: Hx Anxiety - Surgical History Surgery Procedure, Year, and Place: C section, ANKLE SURGERY (RIGHT) Infectious Disease History: No Infectious Disease History: Denies: Hx Hepatitis, Hx Human Immunodeficiency Virus (HIV), History Other Infectious Disease, Traveled Outside the [place] in Last 30 Days - Family History Known Family History: Positive: Hypertension - Paternal, Diabetes - Social History Lives: With Family - with and child Alcohol Use: Weekly Substance Use Type: Reports: None Hx Tobacco Use: Yes Smoking Status (MU): Heavy Every Day Tobacco Smoker Type: Cigarettes Amount Used/How Often: 1/2 ppd or more Review of Systems Positive: Chest Pain - resolved upon arrival to ED Positive: Shortness Of Breath - resolved upon arrival to ED All Other Systems Reviewed And Are Negative: Yes Physical Exam - Summary Physical Exam Summary: Appearance: Well-appearing, Well-nourished, lying in bed comfortable. Patient appears anxious. Skin: Warm, dry, no obvious rash Eyes: sclera anicteric, no conjunctival pallor ENT: mucous membranes moist Neck: deferred Respiratory: No signs of respiratory distress Cardiovascular: Appears well perfused, pulses are nml. Her blood pressure is markedly elevated. Abdomen: deferred Musculoskeletal: Moving all 4 extremities without obvious discomfort Neurological: Awake and alert, mentation is normal, speech is fluent and appropriate Psychiatric: affect is normal, does not appear anxious or depressed Triage Information Reviewed: Yes Vital Signs On Initial Exam: Initial Vitals Temp Pulse Resp BP Pulse Ox 98.3 F 78 16 237/114 95 03/02/19 16:10 03/02/19 16:10 03/02/19 16:10 03/02/19 16:10 03/02/19 16:10 Vital Signs Reviewed: Yes Diagnostics - Vital Signs Vital Signs Temp Pulse Resp BP Pulse Ox 03/02/19 16:10 98.3 F 78 16 237/114 95 - Laboratory Result Diagrams: 03/02/19 16:31 03/02/19 16:31 Lab Statement: Any lab studies that have been ordered have been reviewed, and results considered in the medical decision making process. - Radiology CXR Radiology Interpretation Completed By: Radiologist Summary of Radiographic Findings: NO ACTIVE CARDIOPULMONARY DISEASE. ED physician has reviewed this report. - EKG 1611 Cardiac Rate: NL - 82 BPM EKG Rhythm: Sinus Rhythm Summary of EKG Findings: NSR at 82 BPM. Probable LVH with secondary repolarization. nterior ST elevation, probable due to LVH. Similar to prior on 10/22/17. Chest Pain Course/Dx - Course Course Of Treatment: 43 year old F brought in by ambulance to [facility] with a chief complaint of sudden onset chest tightness radiating to her left arm and shortness of breath since 15:00 today while watching a movie. Since arrival to ED, patient's symptoms have resolved. Patient has hx HTN for which she does not take medication. 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 Patient is a smoker. Physical exam findings: The patient appears to be anxious. Her blood pressure is markedly elevated. An EKG reveals NSR at 82 BPM. Probable LVH with secondary repolarization. nterior ST elevation, probable due to LVH. Similar to prior on 10/22/17. CXR reveals, per radiologist, NO ACTIVE CARDIOPULMONARY DISEASE. Test results with no significant abnormalities except for WBC 11, RBC 5.18, MPV 7.0, absolute neuts 8.7, glucose 151, troponin 0.07. In the ED course, the patient was given Lopressor, Ativan, and Apresoline. Patient continues to be hypertensive in ED. Spoke with Dr. Estrada, hospitalist, who recommends starting a Cardene drip. The patient was started on a Cardene drip. Dr. Estrada agrees to admit the patient. Patient will admitted to the hospitalist. The patient is agreeable with this plan. - Diagnoses Provider Diagnoses: Hypertensive emergency without congestive heart failure, Social anxiety disorder - Provider Notifications Discussed Care Of Patient With: Chelsy Estrada Time Discussed With Above Provider: 20:30 Instructed by Provider To: Other - Dr. Estrada, hospitalist, recommends starting a Cardene drip and agrees to admit the patient - Critical Care Time Critical Care Time: 30-74 min - 30 minutes Discharge - Sign-Out/Discharge Documenting (check all that apply): Patient Departure - Admit Patient Received Moderate/Deep Sedation with Procedure: No - Discharge Plan Condition: Guarded Disposition: ADMITTED TO [facility] - Billing Disposition and Condition Condition: GUARDED Disposition: Admitted to [facility] - Attestation Statements Document Initiated by Scribe: Yes Documenting Scribe: Marilyn Kulkarni Provider For Whom Scribe is Documenting (Include Credential): Jose Gutierrez MD Scribe Attestation: I, Marilyn Kulkarni, scribed for Jose Gutierrez MD on 03/02/19 at 2211. Scribe Documentation Reviewed: Yes Provider Attestation: The documentation as recorded by the scribe, Marilyn Kulkarni accurately reflects the service I personally performed and the decisions made by me, Jose Gutierrez MD Status of Scribe Document: Viewed
[2019-03-02 16:39] LABS: ABS Basophils 0.1 10^3/ul (0-0.2); ABS Eosinophils 0.2 10^3/ul (0-0.6); ABS Lymphocytes 1.4 10^3/ul (1.0-4.8); ABS Monocytes 0.5 10^3/ul (0-0.8); ABS Neutrophils 8.7 10^3/ul (1.5-7.7); Eosinophil % 1.7 %; Hematocrit 45 % (35-47); Hemoglobin 15.4 g/dL (12.0-16.0); Lymphocyte % 13.2 %; Mean Corpuscular HGB Conc 34 g/dL (31-36); Mean Corpuscular Hemoglobin 30 pg (27-31); Mean Corpuscular Volume 87 fL (80-97); Platelet Count 286 10^3/uL (150-450); Red Blood Count 5.18 10^6 /uL (3.70-4.87); Red Cell Distribution Width 14 % (10-15)
[2019-03-02 16:45] LABS: INR 0.98 (0.82-1.09)
[2019-03-02 16:58] LABS: ALT 15 U/L (7-52); AST 15 U/L (13-39); Albumin 3.9 g/dL (3.2-5.2); Albumin/Globulin Ratio 1.2 (1-3); Alkaline Phosphatase 67 U/L (34-104); Anion Gap 5 mmol/L (2-11); BUN/Creatinine Ratio 11.9 (8-20); Blood Urea Nitrogen 10 mg/dL (6-24); CO2 Carbon Dioxide 25 mmol/L (22-32); Calcium 9.2 mg/dL (8.6-10.3); Chloride 106 mmol/L (101-111); EGFR African American 90.4 (>60); EGFR Non-African American 74.7 (>60); Globulin 3.2 g/dL (2-4); Glucose 151 mg/dL (70-100); Potassium 4.7 mmol/L (3.5-5.0); Sodium 136 mmol/L (135-145); Total Protein 7.1 g/dL (6.4-8.9)
[2019-03-02 16:59] LABS: Troponin I 0.03 ng/mL (<0.04)
[2019-03-02 17:16] LABS: HCG Pregnancy < 0.60 mIU/mL
[2019-03-02] MEDS ORDERED: Metoprolol Tartrate TAB* 50 mg PO ONE (18:35)
[2019-03-02] MEDS ORDERED: hydrALAZINE IV* 20 MG/ML VIAL IV SLOW PU ONE (19:38)
[2019-03-02 20:17] LABS: Troponin I 0.07 ng/mL (<0.04)
[2019-03-02] MEDS ORDERED: niCARdipine 0.1MG/ML IVPREMIX* 20 MG/200 ML BAG IV ONE (20:33)
[2019-03-02] MEDS ORDERED: Lorazepam PYXIS KEY PRN (21:12)
[2019-03-02] MEDS ORDERED: Acetaminophen TAB* 325 MG PO PRN (21:12)
[2019-03-02] MEDS ORDERED: Ondansetron INJ* 2 MG/ML VIAL IV PRN (21:12)
[2019-03-02 21:33] LABS: Cholesterol 194 mg/dL; HDL Cholesterol 41.8 mg/dL; LDL Cholesterol 127 mg/dL; Triglycerides 126 mg/dL
[2019-03-02] MEDS ORDERED: Nicotine Lozenge* mini 2 MG LOZNG.MINI MT PRN (22:06)
[2019-03-02] MEDS ORDERED: traZODone TAB* 50 MG TAB PO PRN (22:09)
[2019-03-02] MEDS: Enoxaparin(*) 40 MG/0.4 ML SYR SUBCUT SCH (22:11)
[2019-03-02] MEDS: Escitalopram * 10 MG TAB PO SCH (23:16)
[2019-03-02] MEDS: niCARdipine 0.1MG/ML IVPREMIX* 20 MG/200 ML BAG IV SCH (23:18)
--- NOTE | 2019-03-03 00:38 | HP ---
HISTORY AND PHYSICAL: DATE OF ADMISSION: 03/02/19 PRIMARY CARE PROVIDER: None. LIME KILN WORKER: Juancarlos Altamirano, the patient's . CODE STATUS: Full. SOURCE OF INFORMATION: History of present illness is obtained from the patient , who is an excellent historian. CHIEF COMPLAINT: Chest pain. HISTORY OF PRESENT ILLNESS: 43-year-old female with a past medical history of uncontrolled hypertension, tobacco use, and anxiety is presenting to the emergency room tonight with chest pain. The patient struggles lack of insurance for the past 2 to 3 years and has been intermittently off and on antihypertensives. Currently, she has been on no medications for the past 12 months and does not follow with a doctor, partially here severe anxiety contributes to this. She reports that she was in her usual state of health until about 3 p.m. today where she had sudden onset of chest tightness, described as squeezing while she was watching a movie, nothing provoked it. The tightness eventually caused some mild dull substernal chest pain that radiated to the left arm and thus, she called the ambulance. When EMS arrived, she was found to be hypertensive to the systolic 220s with an EKG showing normal sinus rhythm and thus was brought to the emergency room. She denied palpitations, nausea, vomiting, headache, vision changes, new neurologic symptoms. EMERGENCY ROOM COURSE: In the ER blood pressure was 262/138 on arrival, heart rate was sinus in the 80s, temperature 98.3, satting 97% on room air with respiratory rate of 15. The patient was A and O x3 upon arrival with significant anxiety. EKG showed sinus rhythm with normal axis positive criteria for left ventricular hypertrophy. She has mild ST depressions in II, IV, V, , and T-wave inversions in I and , not significantly changed from the prior EKG in 2018 where she had a similar presentation for the same. A chest x-ray was done, which showed no cardiac abnormalities. Labs showed a mild leukocytosis to 11, glucose elevated at 151, and troponin mildly elevated at 0.07. She was given metoprolol 100 mg p.o., metoprolol 50 mg IV, hydralazine 10 mg IV, and Ativan 1 mg, with no response in her blood pressure, and the hospitalist team was asked to evaluate the patient for admission. PAST MEDICAL HISTORY: Hypertension, anxiety and depression, tobacco use. PAST SURGICAL HISTORY: section, ankle surgery. MEDICATIONS: None. ALLERGIES: To LISINOPRIL (swelling) and HCTZ (hypokalemia, symptomatic). FAMILY HISTORY: Positive for coronary artery disease in father and hypertension in mother. SOCIAL HISTORY: She lives at home with her and adult child. Of note, she recently had a stepson unexpectedly in August of 2018, which has caused significant anxiety. Tobacco: She is a half-pack per day smoker for 20 years. Alcohol: She drinks 2 to 3 drinks per night, 3 to 4 nights per week, with no history of withdrawal. Illicits: Denies. REVIEW OF SYSTEMS: Constitutional: Negative for fevers, chills or malaise. HEENT: Negative for vision changes, headaches, sore throat. Cardiovascular: Negative for palpitations or orthopnea. Positive for mild chest pain. Respiratory: Negative for shortness of breath, cough or pleuritic chest pain. GI: Negative for nausea, vomiting, diarrhea or abdominal pain. : Negative for dysuria, hematuria. Musculoskeletal: Negative for myalgias, arthralgias or weakness. Skin: Negative for rashes or lesions. Neurologic: Negative for focal weakness or numbness. Psychiatric: Positive for depression and anxiety. Endocrine: Negative for polyuria, polydipsia. Heme: Negative for easy bruising, bleeding or lymphadenopathy. PHYSICAL EXAMINATION GENERAL APPEARANCE: This is a pleasant, but anxious woman, sitting up on the stretcher, obese, female. VITAL SIGNS: At time of physical exam, blood pressure is 206/100, heart rate is 80, in sinus, respiratory 15, oxygen saturation is 98% on room air. The patient is afebrile. HEENT: Pupils are equal and reactive. Extraocular muscles are intact. Sclerae are anicteric. Mouth is with moist mucous membranes. No oral lesions. NECK: Supple, with no supraclavicular or cervical lymphadenopathy. No JVD. CARDIAC: Regular rate and rhythm, with no murmurs, rubs or gallops. No palpable thrill. RESPIRATORY: Lungs are clear to auscultation bilaterally. She has scant cough. ABDOMEN: Soft, nontender, nondistended, with normoactive bowel sounds in all 4 quadrants. MUSCULOSKELETAL: She moves all 4 limbs spontaneously. EXTREMITIES: She has no edema and 2+ pulses to bilateral DPs. NEUROLOGIC: Cranial nerves II through XII are intact with no focal weakness. Sensation is intact. The patient is A and O x3. PSYCH: The patient is anxious and depressed when discussing of her child , but otherwise appropriate and interactive. DIAGNOSTIC STUDIES/LAB DATA: CBC: White blood cell count is 11, hemoglobin 15, hematocrit 45, platelets 286. CMP: Sodium 136, potassium 4.7, chloride 106, carbon dioxide 25, anion gap 5, creatinine 0.84, glucose 151. Total bili 0.5, AST 15, ALT 15, alkaline phosphatase 67. Troponin 0.07. LDL cholesterol 127, total cholesterol 194. Chest x-ray shows no acute cardiopulmonary disease. EKG shows sinus rhythm, normal axis, criteria for LVH is positive. Mild ST depressions in II, IV, V, , and T-wave inversions in I and , not significantly changed from 2018. An echocardiogram done in 2018 shows EF of 60% to 65% with moderate hypertrophy , trace AR and , and trace MR, with no other pathology. ASSESSMENT AND PLAN: 43-year-old female with past medical history of uncontrolled hypertension, tobacco use, and anxiety, who is presenting to the emergency room with hypertensive emergency. She will be admitted to the intensive care unit with management of problems as follows: 1. Hypertensive emergency: Goal to lower mean arterial pressure gradually by approximately 10% to 20% in the first hour followed by further reduction of 15% over the next 23 hours, target blood pressure is systolics 180 to 160s. We will aim to keep systolic greater than 140 over the first 24 hours. --Cardene drip and can transition to p.o. as blood pressure trends down. --For PO choice, her last hospitalization she was put on Amlodipine and Hydralazine TID, she notes allergies to ABRAHAN-I, and HCTZ, it is reasonable to trial and ARB, low dose to see if she tolerates this class of medication as it is has renal protective effect as well as ease of dosing. Will trial Amlodipine 10 and low dose Losartan. --We will continue to trend troponin given this is the only evidence of end organ damage for her current hypertension. --Of note she did undergo partial workup for secondary hypertension during last hospitalization (cortisol normal, I do not see metanephrines ordered). She does not have a renal artery doppler on file, though her history sounds most concerning for essential hypertension. Consider completing follow up if able. 2. Chest pain with elevated troponin: Differential for this is non-ST elevation myocardial infarction versus hypertensive emergency. Her chest pain has abated since she has been in the emergency room. Her troponins were mildly elevated and we will continue to trend. ELIAS score is 0. --The patient will benefit from stress test, although in the past she has been unable to stay in the hospital secondary to her anxiety. On this admission she and her feel that they would stay for stress test if warranted. --Risk stratify this patient with A1c and lipid panel. --Consult to cardiology for possible Nuclear Stress Monday 3. Anxiety: The patient is open to starting SSRI as she has had success in the distant past with them. We will start escitalopram at 10 mg, offer hydroxyzine p.r.n., and lorazepam p.r.n. while on acute hospital stay. She will need close followup with primary care provider on discharge as anxiety significantly limits her from having meaningful interactions with outpatient healthcare. 4. Tobacco use: Offer nicotine replacement therapy. 5. DVT prophylaxis: The patient on Lovenox subcu q.24 hours for moderate risk. 6. Code status: Full. 7. FEN: We will offer heart-healthy diet while A1c is pending. 8. Disposition: At time of admission the patient is stable for admission to the intensive care unit for Cardene drip and acute blood pressure monitoring needing ICU level care. Anticipate transfer out of ICU within the next 24 hours , and this has been discussed with the patient. TIME SPENT: Forty minutes were spent on the planning of this admission, with over half of that spent directly at the bedside providing direct patient care. Plan of care was discussed with the patient and her , who agree with admission and have no further questions. [id number]/[facility] #: [id number] BETO
[2019-03-03] MEDS: niCARdipine 0.1MG/ML IVPREMIX* 20 MG/200 ML BAG IV SCH ×2 (00:59→02:37)
[2019-03-03] MEDS: LORazepam INJ* 2 MG/ML 1 ML VIAL IV PUSH PRN (01:05)
[2019-03-03 01:41] LABS: Troponin I 0.07 ng/mL (<0.04)
[2019-03-03 04:45] LABS: Anion Gap 7 mmol/L (2-11); BUN/Creatinine Ratio 12.7 (8-20); Blood Urea Nitrogen 9 mg/dL (6-24); CO2 Carbon Dioxide 22 mmol/L (22-32); Calcium 8.6 mg/dL (8.6-10.3); Chloride 106 mmol/L (101-111); EGFR African American 109.8 (>60); EGFR Non-African American 90.7 (>60); Glucose 124 mg/dL (70-100); Potassium 3.7 mmol/L (3.5-5.0); Sodium 135 mmol/L (135-145)
[2019-03-03 04:50] LABS: Troponin I 0.07 ng/mL (<0.04)
[2019-03-03 05:00] LABS: TSH (Thyroid Stimulating Horm) 2.28 mcIU/mL (0.34-5.60)
[2019-03-03] MEDS: amLODIPine TAB* 5 MG PO SCH (09:08)
[2019-03-03] MEDS: Losartan TAB* 25 MG PO SCH (09:08)
--- NOTE | 2019-03-03 11:02 | ECHO ---
*[facility]* [place] [address] Fax #: [phone] Transthoracic Echocardiogram Patient: , Height: 66 in / Aleida Cooley 167.6 cm : 1975 Weight: 215.6 lb / Study Date: 03/03/2019 98 kg Age: 43 BP: 137 / 79 Gender: F BMI/BSA: 34.9 kg/m^2 HR: 65 bpm / 2.07 m^2 *Territory Development Manager: * Sophia Orosco [facility] *Referring Physician: * Chelsy Estrada *Reading Physician: * Michael Perales MD Indications: Cardiomyopathy. History: Risk factors: Current tobacco use. Hypertension. Obese. Conclusions Summary: 1. Left ventricle: The cavity size is normal. There is moderate concentric hypertrophy. Systolic function is normal. The estimated ejection fraction is 55-60%. Wall motion is normal; there are no regional wall motion abnormalities. 2. Left atrium: The atrium is mildly dilated. 3. Right atrium: The atrium is mildly dilated. 4. Functionally benign heart valves. 5. Ascending aorta: The ascending aorta is mildly dilated. 6. Since the prior echocardiogram completed 10/22/17, pertinent change is prior normal ascending aortic size noted. Study data: Transthoracic echocardiogram. Procedure: Transthoracic echocardiography was performed. Image quality was fair. Complete 2D, spectral Doppler, and color flow Doppler. Location: ICU Patient status: Inpatient. Patient room number: ICU-6. Rhythm: Normal sinus rhythm. Findings Left ventricle: The cavity size is normal. There is moderate concentric hypertrophy. Systolic function is normal. The estimated ejection fraction is 55-60%. Wall motion is normal; there are no regional wall motion abnormalities. Left ventricular diastolic function parameters are indeterminate. Right ventricle: The cavity size is normal. Systolic function is normal. The tricuspid jet envelope definition is inadequate for estimation of RV systolic pressure. Left atrium: The atrium is mildly dilated. Right atrium: The atrium is mildly dilated. Mitral valve: The leaflets are mildly thickened. There is trace regurgitation. Aortic valve: The valve is trileaflet. The leaflets are normal thickness. There is no evidence of stenosis. There is no significant regurgitation. Tricuspid valve: The leaflets are normal thickness. There is physiologic regurgitation. Pulmonic valve: The leaflets are normal thickness. There is no evidence of stenosis. There is trivial regurgitation. Aorta: Ascending aorta: The ascending aorta is mildly dilated. Aortic arch: The aortic arch is appears normal. The aortic root is not dilated. Pericardium: A prominent pericardial fat pad is present. There is no pericardial effusion. Pulmonary arteries: The main pulmonary artery is normal-sized. Systolic pressure can not be accurately estimated. Systemic veins: Inferior vena cava: The vessel is dilated. The respirophasic diameter changes are in the normal range (>= 50%). Measurements Left ventricle Value Ref Right atrium continued Value Ref RUBÉN, LAX 3.8 cm 3.8 - 5.2 SI dim, ES, A4C 4.8 cm 3.4 - 5.3 ESD, LAX 2.9 cm 2.2 - 3.5 Estimated RAP 8 mm Hg --------- FS, LAX (L) 24 % 27 - 45 PW, ED, LAX (H) 1.5 cm 0.6 - 0.9 Aortic valve Value Ref FS (L) 24 % 27 - 45 Delores diam, ED 1.9 cm --------- PW, ED (H) 1.5 cm 0.6 - 0.9 Peak v, S 1.53 m/sec --------- E', lat delores, TDI (L) 6.3 cm/sec >=10.0 VTI, S 28.8 cm -- ------- E/e', lat delores, 15 Mean grad, S 4.0 mm Hg ----- ---- TDI Peak grad, S 9.0 mm Hg --------- E', med delores, TDI (L) 6.9 cm/sec >=7.0 LVOT/AV, VTI ratio 0.73 -- ------- E/e', med delores, 14 TDI Mitral valve Value Ref E', avg, TDI 6.6 cm/sec Peak E 0.96 m/sec ----- ---- E/e', avg, TDI 14 <=14 Peak A 0.52 m/sec -- ------- Decel time 236 ms --------- LVOT Value Ref Peak grad, D 3.7 mm Hg --------- Peak clark, S 0.98 m/sec Peak E/A ratio 1.8 --------- VTI, S 21.0 cm Mean grad, S 2 mm Hg Pulmonic valve Value Ref Peak v, S 0.85 m/sec --------- Ventricular septum Value Ref Peak grad, S 3.0 mm Hg --------- IVS, ED (H) 1.5 cm 0.6 - 0.9 Aortic root Value Ref Right ventricle Value Ref Root diam 2.8 cm <4.2 AW thickness, ED (H) 0.6 cm 0.1 - 0.5 RUBÉN, LAX 3.5 cm Ascending aorta Value Ref RUBÉN minor ax, (H) 4.3 cm 1.9 - 3.5 AAo AP diam, S 3.7 cm --------- A4C mid Aortic arch Value Ref Left atrium Value Ref Arch diam 2.2 cm --------- AP dim, ES (H) 4.10 cm 2.70 - 3.80 Decending aorta Value Ref ML dim, A4C 5.4 cm Rashel peak clark 0.96 m/sec --------- SI dim, A4C 5.5 cm Vol/bsa, ES, 1-p 28 ml/m^2 11 - 40 Inferior vena cava Value Ref A4C Diam 2.2 cm --------- Vol/bsa, ES, A/L (H) 38 ml/m^2 16 - 34 Right atrium Value Ref SI dim, ES 4.8 cm 3.4 - 5.3 ML dim, ES, A4C (H) 4.6 cm 2.6 - 4.4 Legend: (L) and (H) charles values outside specified reference range. Prepared and electronically signed by Michael Perales MD 03/03/2019 11:01
--- NOTE | 2019-03-03 13:56 | CONS ---
CC: Dr. Garcia CARDIOLOGY CONSULTATION: DATE OF CONSULT: 03/02/19 REFERRAL PHYSICIAN: Dr. Chelsy Estrada. REASON FOR CARDIOLOGY CONSULT: Chest pain with elevated troponin in patient with hypertensive urgency. HISTORY OF PRESENT ILLNESS: I was kindly asked to see this patient for cardiology consultation as she has hypertensive urgency as well as chest pain with elevated troponins. The patient has a longstanding history of hypertension since the age of 15, but has apparently been noncompliant with medical followup including taking her antihypertensive agents. She states that yesterday at 4:30 p.m. (today, I am seeing her at 11:58 a.m. on the following day), while watching a movie, she developed chest pain. This chest pain was located in her midsternal region with radiation to her left arm which occurred for about an hour off and on. She was also short of breath. She decided to present to the emergency room. She apparently received a sublingual nitroglycerin with complete relief of her chest pain. Since being admitted to the hospital, she has been found to have hypertensive urgency. In fact, her initial blood pressure was 225/127. She received nicardipine drip with good effect. Currently, the patient has no chest pain. PAST MEDICAL HISTORY: Significant for hypertension, for which she is noncompliant with followup. She has been seen by her program manufacturing leader, Dr. Garcia, in the past on 10/22/17 who had recommended outpatient evaluation, which the patient was not compliant with. Other past medical history includes GERD and anxiety. OUTPATIENT MEDICATIONS: None. Currently, she is on a Cardene drip with good effect. ALLERGIES TO MEDICATIONS: Reported as HYDROCHLOROTHIAZIDE which caused her to have hypokalemia and LISINOPRIL which caused her to have swelling. FAMILY HISTORY: Her father had a history of heart attacks. No family history of stroke nor diabetes. Positive family history of cancer. SOCIAL HISTORY: She smokes 1 pack of cigarettes per day. She occasionally drinks alcohol. She occasionally uses marijuana. She is . 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 She did not graduate high school. She does try to stay active with walking and mowing her lawn. She does drink coffee 1 time a week. REVIEW OF SYSTEMS: She denies personal history of stroke, cancer, vomiting blood, coughing up blood, bright red blood per rectum, bleeding stomach ulcers, renal calculi, cholelithiasis. She has a history of asthma. She denies emphysema, pneumonia, tuberculosis. She has sleep apnea, states that she does not use her CPAP because her cat swats it off her face. She does not use home oxygen. She denies diabetes. She has a history of hypertension since the age of 15, but she has not been compliant at least recently with medical management. She denies prior NM, congestive heart failure, cardiac surgery. She has been told she has a heart murmur. She notes occasional palpitations for a few seconds. She denies fainting. She notes psychiatric illnesses with anxiety. She denies lupus, cirrhosis, seizures, Parkinson disease, myasthenia gravis, thyroid disorders, liver disorders, kidney disorders, claudication symptoms, pulmonary emboli, deep venous thrombosis, or peripheral arterial disease. She denies peripheral edema. She does have GERD. All other review of systems are negative x14, except as per this documentation. PHYSICAL EXAM: Height 5 feet 6 inches, weight 216 pounds. Temperature 98.5 degrees on admission, pulse 64, blood pressure is currently 149/86 and again had been as high as 237/114 to 225/127 on initial presentation. On general exam , she is an anxious lady, in no acute distress. HEENT shows the cranium is normocephalic and atraumatic. She has dry mucosal membranes. Neck veins are not distended. There are no carotid bruits. Visible skin warm and perfused. Affect is appropriate. She appears anxious and grossly oriented. No significant kyphoscoliosis on back exam. Lungs are clear to auscultation. No wheezes, no rales. Cardiac Exam: S1, S2. Regular rate. No significant murmurs, rubs, or gallops. PMI is nondisplaced. Abdomen: Soft and nondistended, appears benign. Extremities: Without significant edema. Pulses appear intact. DIAGNOSTIC STUDIES/LAB DATA: She completed a transthoracic echocardiogram earlier today (please see also that report), which showed normal left ventricular size with normal left ventricular ejection fraction of 55% to 60% with moderate concentric left ventricular hypertrophy, mild biatrial dilatation , functionally benign heart valves, mildly dilated ascending aorta. When compared to prior echocardiogram completed 10/22/17, pertinent change is prior normal ascending aortic size noted. White blood cell count 11, hematocrit 45, platelet count 286. INR 0.98. Sodium 135, potassium 3.7, chloride 106, bicarbonate 22, BUN 9, creatinine 0.71. Troponin is 0.07 x3 and had been 0.03 on admission. ALT 15. IMPRESSION: Ms. Altamirano is a 43-year-old woman with longstanding history of hypertension for which she has been noncompliant for followup including with her program manufacturing leader Dr Garcia. She is now admitted with hypertensive urgency with chest pain and mild troponinemia. Unclear if this is demand mediated chest pain with mild troponinemia due to her hypertensive urgency. Currently, she is chest pain free and her blood pressure is better controlled with use of Cardene gtt with last blood pressure 133/98. We do note that the patient does have newly dilated ascending aorta on her echocardiogram, likely as the sequela of her systemic hypertension, however it is reassuring that she does still have preserved left ventricular function. RECOMMENDATIONS: 1. Wean off Cardene drip with restarting her Norvasc and hydralazine, as she had been on as an outpatient in the past. 2. Agree with renal evaluation regarding secondary causes of hypertension. 3. Once blood pressure is controlled, plan cardiac chemical nuclear rest/ stress scan (I think that is safer as given her hypertensive urgency) to risk stratify her given this mild troponinemia. Would start low dose aspirin in the interim at least until her ischemic evaluation is completed. 4. Recommend smoking cessation, restarting CPAP, and establishing primary care. 5. The patient may follow up with her usual program manufacturing leader, Dr. Garcia, whom she has seen in the past as felt appropriate. 6. Further cardiac recommendations to follow above. 7. Other management as per the Hospitalist Medicine service and I have discussed the case with Dr. Estrada. Dear Dr. Estrada, many thanks for this kind cardiac consultation opportunity. Please do not hesitate to contact me if you have any questions or concerns regarding the patient's cardiovascular consultative care. These recommendations have also been discussed with the patient and she appears to be in agreement with these recommendations. [id number]/[facility] #: [id number] BETO
--- NOTE | 2019-03-03 17:17 | PN ---
Subjective Date of Service: 03/03/19 Interval History: cp resolved.no sob.off cardene drip overnight. was started on losartan and amlodipine and bp in 140s-150s Objective Active Medications: Acetaminophen (Tylenol Tab*) 650 mg PO Q6H PRN PRN Reason: FEVER/PAIN Amlodipine Besylate (Norvasc Tab*) 10 mg PO DAILY [facility] Last Admin: 03/03/19 09:08 Dose: 10 mg Enoxaparin Sodium (Lovenox(*)) 40 mg SUBCUT Q24H [facility] Last Admin: 03/02/19 22:11 Dose: 40 mg Escitalopram Oxalate (Lexapro *) 10 mg PO BEDTIME [facility] Last Admin: 03/02/19 23:16 Dose: 10 mg Hydroxyzine HCl (Atarax Tab*) 25 mg PO Q4H PRN PRN Reason: ANXIETY Lorazepam (Ativan Inj*) 0.5 mg IV PUSH Q6H PRN PRN Reason: ANXIETY Last Admin: 03/03/19 01:05 Dose: 0.5 mg Losartan Potassium (Cozaar Tab*) 25 mg PO DAILY [facility] Last Admin: 03/03/19 09:08 Dose: 25 mg Miscellaneous (Ativan Pyxis Resendiz) 1 ea N/A .ATIVAN IV RESENDIZ PRN PRN Reason: PYXIS RESENDIZ Nicotine Polacrilex (Nicotine Gum*) 2 mg PO Q2H PRN PRN Reason: CRAVING Nicotine Polacrilex (Nicotine Lozenge Mini) 2 mg MT Q2H PRN PRN Reason: CRAVING Ondansetron HCl (Zofran Inj*) 4 mg IV Q6H PRN PRN Reason: NAUSEA Trazodone HCl (Desyrel Tab*) 50 mg PO BEDTIME PRN PRN Reason: INSOMNIA Vital Signs - 8 hr 03/03/19 03/03/19 03/03/19 09:31 10:00 10:30 Temperature Pulse Rate 70 64 65 Respiratory 21 18 23 Rate Blood Pressure 136/77 140/72 145/72 (mmHg) O2 Sat by Pulse 94 93 94 Oximetry 03/03/19 03/03/19 03/03/19 11:00 11:30 12:00 Temperature 98.9 F Pulse Rate 65 64 66 Respiratory 19 29 13 Rate Blood Pressure 149/86 131/69 161/90 (mmHg) O2 Sat by Pulse 93 94 95 Oximetry 03/03/19 03/03/19 03/03/19 12:31 13:00 13:01 Temperature Pulse Rate 69 73 75 Respiratory 26 14 17 Rate Blood Pressure 158/104 152/124 (mmHg) O2 Sat by Pulse 93 96 97 Oximetry 03/03/19 03/03/19 03/03/19 13:31 14:00 14:01 Temperature Pulse Rate 66 68 70 Respiratory 15 21 23 Rate Blood Pressure 145/88 126/73 (mmHg) O2 Sat by Pulse 97 94 94 Oximetry 03/03/19 03/03/19 03/03/19 14:30 15:00 15:01 Temperature Pulse Rate 67 67 67 Respiratory 21 16 19 Rate Blood Pressure 126/76 150/91 (mmHg) O2 Sat by Pulse 95 96 95 Oximetry 03/03/19 15:58 Temperature 97.4 F Pulse Rate 65 Respiratory 16 Rate Blood Pressure 156/90 (mmHg) O2 Sat by Pulse 99 Oximetry Oxygen Devices in Use Now: None Eyes: No Scleral Icterus Ears/Nose/Mouth/Throat: NL Teeth, Lips, Gums Neck: NL Appearance and Movements; NL JVP Respiratory: Symmetrical Chest Expansion and Respiratory Effort, Clear to Auscultation Cardiovascular: NL Sounds; No Murmurs; No JVD, RRR Abdominal: NL Sounds; No Tenderness; No Distention Extremities: No Edema Skin: No Rash or Ulcers Neurological: Alert and Oriented x 3 Result Diagrams: 03/02/19 16:31 03/03/19 04:15 Microbiology and Other Data: Microbiology 03/02/19 21:53 Nasal Screen MRSA (PCR) - Final Nasal Mrsa Not Detected Assess/Plan/Problems-Billing Assessment:
--- NOTE | 2019-03-03 17:46 | PN ---
Subjective Date of Service: 03/03/19 Interval History: no sob.no cp.off cardene drip.was started on amlodipine and losartan and bp in the 140s-150s currently Objective Active Medications: Acetaminophen (Tylenol Tab*) 650 mg PO Q6H PRN PRN Reason: FEVER/PAIN Amlodipine Besylate (Norvasc Tab*) 10 mg PO DAILY [facility] Last Admin: 03/03/19 09:08 Dose: 10 mg Enoxaparin Sodium (Lovenox(*)) 40 mg SUBCUT Q24H [facility] Last Admin: 03/02/19 22:11 Dose: 40 mg Escitalopram Oxalate (Lexapro *) 10 mg PO BEDTIME [facility] Last Admin: 03/02/19 23:16 Dose: 10 mg Hydroxyzine HCl (Atarax Tab*) 25 mg PO Q4H PRN PRN Reason: ANXIETY Lorazepam (Ativan Inj*) 0.5 mg IV PUSH Q6H PRN PRN Reason: ANXIETY Last Admin: 03/03/19 01:05 Dose: 0.5 mg Losartan Potassium (Cozaar Tab*) 25 mg PO DAILY [facility] Last Admin: 03/03/19 09:08 Dose: 25 mg Miscellaneous (Ativan Pyxis Resendiz) 1 ea N/A .ATIVAN IV RESENDIZ PRN PRN Reason: PYXIS RESENDIZ Nicotine Polacrilex (Nicotine Gum*) 2 mg PO Q2H PRN PRN Reason: CRAVING Nicotine Polacrilex (Nicotine Lozenge Mini) 2 mg MT Q2H PRN PRN Reason: CRAVING Ondansetron HCl (Zofran Inj*) 4 mg IV Q6H PRN PRN Reason: NAUSEA Trazodone HCl (Desyrel Tab*) 50 mg PO BEDTIME PRN PRN Reason: INSOMNIA Vital Signs - 8 hr 03/03/19 03/03/19 03/03/19 09:31 10:00 10:30 Temperature Pulse Rate 70 64 65 Respiratory 21 18 23 Rate Blood Pressure 136/77 140/72 145/72 (mmHg) O2 Sat by Pulse 94 93 94 Oximetry 03/03/19 03/03/19 03/03/19 11:00 11:30 12:00 Temperature 98.9 F Pulse Rate 65 64 66 Respiratory 19 29 13 Rate Blood Pressure 149/86 131/69 161/90 (mmHg) O2 Sat by Pulse 93 94 95 Oximetry 03/03/19 03/03/19 03/03/19 12:31 13:00 13:01 Temperature Pulse Rate 69 73 75 Respiratory 26 14 17 Rate Blood Pressure 158/104 152/124 (mmHg) O2 Sat by Pulse 93 96 97 Oximetry 03/03/19 03/03/19 03/03/19 13:31 14:00 14:01 Temperature Pulse Rate 66 68 70 Respiratory 15 21 23 Rate Blood Pressure 145/88 126/73 (mmHg) O2 Sat by Pulse 97 94 94 Oximetry 03/03/19 03/03/19 03/03/19 14:30 15:00 15:01 Temperature Pulse Rate 67 67 67 Respiratory 21 16 19 Rate Blood Pressure 126/76 150/91 (mmHg) O2 Sat by Pulse 95 96 95 Oximetry 03/03/19 15:58 Temperature 97.4 F Pulse Rate 65 Respiratory 16 Rate Blood Pressure 156/90 (mmHg) O2 Sat by Pulse 99 Oximetry Oxygen Devices in Use Now: None Eyes: No Scleral Icterus Ears/Nose/Mouth/Throat: NL Teeth, Lips, Gums Neck: NL Appearance and Movements; NL JVP Respiratory: Symmetrical Chest Expansion and Respiratory Effort, Clear to Auscultation Cardiovascular: NL Sounds; No Murmurs; No JVD, RRR Abdominal: NL Sounds; No Tenderness; No Distention Extremities: No Edema Skin: No Rash or Ulcers Neurological: Alert and Oriented x 3 Result Diagrams: 03/02/19 16:31 03/03/19 04:15 Microbiology and Other Data: Microbiology 03/02/19 21:53 Nasal Screen MRSA (PCR) - Final Nasal Mrsa Not Detected Assess/Plan/Problems-Billing Assessment: - Patient Problems (1) Hypertensive urgency Current Visit: No Status: Acute Code(s): I16.0 - HYPERTENSIVE URGENCY SNOMED Code(s): 990786769 Comment: SBP in the 200s on arival with CP symptoms Long standing hypertension and pt has not been c/w hypertensive meds due to insurance problems Off cardene drip Was started on losartan and amlodpine and bp in 140s-150s which is in good range for now Will avoid rapid decrease in bp to avoid cerebral hypoperfusion in the setting of long standing high bps Pt has an ABRAHAN inhibitor allergy listed as anaphylaxis.but on asking pt she says her leg did not move and she does not recollect what exactly happened Counselled pt that a small percentage of pts on ARB can also have angioedema symptoms if they have such symptoms with ABRAHAN however most arielle can receive ARB with an ABRAHAN allergy and tolerate it well with no problems Will continue the losartan for now as she is in the hospital and can be closely monitored if she tolerates it well can be increased and 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 will pursue secondary hypertension w/u for pheochromocytoma hyperaldosteronism and Renal artery stenosis will also check anca to eval for vasculitis ,zeferino ,cortisol. tsh wnl will get ua and 24h urine to eval for proteinuria (2) Elevated troponin Current Visit: Yes Status: Acute Code(s): R74.8 - ABNORMAL LEVELS OF OTHER SERUM ENZYMES SNOMED Code(s): 780747781 Comment: in the setting of hypertensive urgency and poss demand ischemia appreciate dr wilson/cardiology input reports family history of early cardiac disease with father with heart disease in his 40s Stress test on monday and further management (3) Anxiety Current Visit: Yes Status: Acute Code(s): F41.9 - ANXIETY DISORDER, UNSPECIFIED SNOMED Code(s): 30080691 Comment: started on ssri here and will evaluate h/o depression (4) Tobacco abuse Current Visit: Yes Status: Acute Code(s): Z72.0 - TOBACCO USE SNOMED Code( s): 436021011 Comment: smoking cessation counselled nicotine lozenges prn pt wants to avoid as she says it gives her anxiety
[2019-03-03 18:51] LABS: BUN/Creatinine Ratio 12.2 (8-20); Calcium 8.9 mg/dL (8.6-10.3); EGFR African American 104.7 (>60); EGFR Non-African American 86.5 (>60); Potassium 3.9 mmol/L (3.5-5.0)
[2019-03-03 18:53] LABS: Urine Appearance Clear; Urine Bacteria 3+ (Absent); Urine Bilirubin Negative (Negative); Urine Blood 1+ (Negative); Urine Color Yellow; Urine Glucose Negative (Negative); Urine Ketones Negative (Negative); Urine Nitrite Negative (Negative); Urine Protein Negative (Negative); Urine Red Blood Cell Trace(0-2/hpf) (Absent); Urine Specific Gravity 1.005 (1.010-1.030); Urine Squamous Epithelial Cell Present (Absent); Urine Urobilinogen Negative (Negative); Urine White Blood Cell Trace(0-5/hpf) (Absent)
[2019-03-03 19:19] LABS: Urine Creatinine Concentration 47.76 mg/dL
[2019-03-03 19:20] LABS: Urine TP Concentration < 4 mg/dL
[2019-03-03] MEDS: Nicotine* 2MG (FRUIT FLAVOR) GUM PO PRN (20:05)
[2019-03-03] MEDS: Escitalopram * 10 MG TAB PO SCH (20:05)
[2019-03-03] MEDS: hydrOXYzine HCL TAB* 25 MG PO PRN (20:05)
[2019-03-03] MEDS: Enoxaparin(*) 40 MG/0.4 ML SYR SUBCUT SCH (21:13)
[2019-03-04 05:51] LABS: ABS Eosinophils 0.3 10^3/ul (0-0.6); ABS Lymphocytes 2.1 10^3/ul (1.0-4.8); ABS Monocytes 0.6 10^3/ul (0-0.8); ABS Neutrophils 4.5 10^3/ul (1.5-7.7); Eosinophil % 3.7 %; Hematocrit 45 % (35-47); Hemoglobin 14.9 g/dL (12.0-16.0); Lymphocyte % 27.5 %; Mean Corpuscular HGB Conc 33 g/dL (31-36); Mean Corpuscular Hemoglobin 29 pg (27-31); Mean Corpuscular Volume 88 fL (80-97); Mean Platelet Volume 7.4 fL (7.4-10.4); Nucleated Red Blood Cells % 0.1; Platelet Count 286 10^3/uL (150-450); Red Blood Count 5.11 10^6 /uL (3.70-4.87); Red Cell Distribution Width 15 % (10-15); White Blood Count 7.5 10^3/uL (3.5-10.8)
[2019-03-04 06:13] LABS: Calcium 8.9 mg/dL (8.6-10.3); Potassium 3.8 mmol/L (3.5-5.0)
[2019-03-04 06:18] LABS: BUN/Creatinine Ratio 14.9 (8-20); EGFR African American 117.4 (>60)
[2019-03-04] MEDS: amLODIPine TAB* 5 MG PO SCH (07:23)
[2019-03-04] MEDS: Losartan TAB* 25 MG PO SCH (07:23)
[2019-03-04] MEDS: Nicotine* 2MG (FRUIT FLAVOR) GUM PO PRN ×3 (07:24→14:47)
[2019-03-04] MEDS: hydrOXYzine HCL TAB* 25 MG PO PRN (07:24)
[2019-03-04] MEDS: hydrALAZINE IV* 20 MG/ML VIAL IV SLOW PU PRN ×2 (08:05→11:19)
[2019-03-04] MEDS: LORazepam INJ* 2 MG/ML 1 ML VIAL IV PUSH PRN (11:32)
[2019-03-04] MEDS ORDERED: Aminophylline IV* 25 MG/ML 10 ML VIAL ONE (12:37)
[2019-03-04] MEDS ORDERED: Regadenoson* 0.4 MG/5 ML SYRINGE ONE (12:37)
[2019-03-04] MEDS ORDERED: hydrALAZINE IV* 20 MG/ML VIAL IV SLOW PU PRN (14:15)
[2019-03-04] MEDS ORDERED: Losartan TAB* 25 MG PO SCH (15:00)
[2019-03-04 15:56] VITALS: BP 154/92
--- NOTE | 2019-03-04 17:44 | CONS ---
CC: Dr. Garcia * CONSULTATION REPORT: DATE OF CONSULT: 03/04/19 REASON FOR CONSULT: Due to chest pain, shortness of breath. HISTORY OF PRESENT ILLNESS: The patient was admitted to the hospital with hypertensive urgency and shortness of breath. She had abnormal EKG. She was consulted by Dr. Perales, who recommended a stress test and an echocardiogram. Her echocardiogram showed normal LV size and systolic function. No significant valvular abnormalities. The patient underwent a chemical nuclear stress test today, which I personally reviewed. It demonstrated a potential area of mixed infarct ischemia to the anterolateral aguirre and very small area of myocardium. It was normal with attenuation correction. The rest of the myocardium had normal perfusion. She had an elevated TID at 1.27, which is at the upper limits of normal for Lexiscan infusion. Her calculate ejection fraction on her nuclear imaging was 41% with global mild hypokinesis. Again the patient's echocardiogram the day before showed normal LV size and systolic function. Currently, the patient has no symptoms, she is feeling better on her current medications. Currently she is taking amlodipine 10 mg a day, Cozaar 50 mg a day, metoprolol tartrate 12.5 mg b.i.d. Overall, I think the patient's cardiac workup is relatively benign. I do not think her stress test is a high risk test. Again, her echocardiogram showed normal LV function. Her nuclear images show a potential small area of infarct ischemia to the anterolateral wall. For now, my recommendation is for the patient to go home on maximum medical therapy. PHYSICAL EXAM: Her current vital sings showed blood pressure 160/80, heart rate of 74, temperature 97.5. Lungs are clear to auscultation. Cardiac exam: S1, S2 without any murmurs, rubs, or gallops. Extremities show no edema. DIAGNOSTIC STUDIES/LAB DATA: Chemistries are normal. Her BUN is 10, creatinine 0.6. IMPRESSION: The patient will discharged home on her current medications. I do not think any further workup from a cardiac standpoint is necessary. The patient can follow with Dr. Garcia as an outpatient. This case was discussed with Dr. Harmon. [id number]/[facility] #: [id number] BETO
[2019-03-04] MEDS ORDERED: Metoprolol Tartrate TAB* 25 MG PO SCH (21:00)
--- NOTE | 2019-03-04 23:28 | DS ---
CC: Dr. Garcia; Dr. Paige; Dr. Perales; Dr. Duarte; [facility] * DISCHARGE SUMMARY: DATE OF ADMISSION: 03/02/19 DATE OF DISCHARGE: 03/04/19 PRIMARY CARE PROVIDER: None. DISCHARGE DISPOSITION: To home. CONDITION AT DISCHARGE: Stable. DISCHARGE DIAGNOSES: 1. Chest pain with high-risk cardiac stress test documented on 03/04/19. 2. Hypertensive urgency. SECONDARY DIAGNOSES: 1. History of hypertension, with medical noncompliance. 2. History of smoking. 3. History of anxiety. 4. Depression. MEDICATION AT DISCHARGE: Include: 1. Norvasc 10 mg daily. 2. Aspirin 81 mg daily. 3. Lipitor 20 mg daily. 4. Lexapro 10 mg at bedtime. 5. Atarax 25 mg every 6 hours p.r.n. 6. Losartan 50 mg daily. 7. Lopressor 12.5 mg b.i.d. 8. Nicotine inhaler, 1 inhalation every 2 hours p.r.n. DIAGNOSTIC STUDIES/LAB DATA: On 03/04/19, white blood cell count was 7.5, hemoglobin of 14.9, hematocrit of 45, and platelets of 286. Sodium 135, potassium 3.8, chloride 106, carbon dioxide 21, BUN 10, creatinine 0.67, cortisol level of 13.1 documented on 03/03/19. TSH was 2.2 documented on 03/03/19. Troponin of 0.07. The patient's renal artery Doppler study obtained today, on 03/04/19, impression : "Negative for Doppler evidence of hemodynamically significant renal artery stenosis." Nuclear medicine cardiac stress test documented today, impression: "Elevated transient ischemic dilatation at 1.27, suggesting the possibility of multivessel coronary artery disease. Decreased left ventricular ejection fraction calculated to be 44." Transthoracic echocardiogram obtained on 03/03/19 showed an EF of 55% to 60%, with moderate concentric hypertrophy, left atrium mildly dilated, right atrium mildly dilated, functionally benign heart valves, mildly dilated ascending aorta. ADDITIONAL CONSULTATION: The patient was also seen by Dr. Perales from cardiology and Dr. Paige from cardiology. LABORATORY DATA PENDING AT TIME OF THE DISCHARGE: Include fractionated metanephrines, aldosterone, YAMILET, ANCA levels, plasma metanephrines, and renin. FOLLOWUP: At discharge the patient is to follow up with [facility] in 4 to [address] Garcia 2 to 4 weeks. HOSPITALIZATION COURSE: Ms. Aleida Altamirano is a 43-year-old female with history of hypertension who has been noncompliant with her treatment due to problems with her insurance, who presented to the hospital with systolic pressures in 230s and complaining of chest pain. The patient's troponin was 0.07 and cardiology was asked to evaluate the patient. Dr. Perales saw the patient in evaluation during the hospitalization and he recommended cardiac stress test. Cardiac stress test showed elevated TDI level at 1.27 and possibility of "somewhat irregular patchy distribution of radiopharmaceuticals limiting the study, but no significant focal perfusions defects are seen after pharmacologic stress test." I discussed the case with Dr. Paige who stated that the patient' s TDI number is at the higher level of normal. The patient may have mild small defect in the lateral wall that will not necessitate cardiac catheterization at this point. It was recommended for the patient to be placed on beta-blockers, aspirin, and Lipitor. Her LDL was noted to be 127 during the admission. The patient's blood pressure was also controlled on losartan and amlodipine with the most recent blood pressures in the 150s. The patient was recommended to follow up with her primary care provider of choice and has [facility] for follow up within the next week. The patient was also recommended to follow up with Dr. Garcia. PHYSICAL EXAMINATION: At the time of discharge, blood pressure is 154/92, heart rate of 95 and regular, respiratory rate is 16, oxygen saturation 98% on room air, temperature of 97.8. General: The patient is a pleasant 43-year-old female who is in no acute distress. Alert, awake, and oriented x3. HEENT: Head atraumatic, normocephalic. Eyes: Pupils are equal and reactive to light and accommodation. Oropharynx clear. Mucosa moist. Neck: Supple. No JVD. No bruits bilaterally. Cardiovascular: Regular rate and rhythm with no murmurs. Respiratory: Clear to auscultation bilaterally. Abdomen: Soft, nontender. Bowel sounds are present in all 4 quadrants. Extremities: There is no edema. Pulses +2 bilaterally. There is no clubbing or cyanosis. Neuro: Speech is clear. Cranial nerves II through XII are grossly intact. Motor strength is 5/5 bilaterally. Please note that this is a short summary of the patient's hospital stay. Please refer to further medical records for details. CONDITION ON DISCHARGE: Stable. DISPOSITION AT DISCHARGE: To home. TIME SPENT: Approximately 35 minutes were spent on the patient's discharge. [id number]/[facility] #: [id number] MTDD
[2019-03-06 13:14] LABS: Plasma Free Metanephrine <0.20 nmol/L (<0.50); Plasma Free Normetanephrine 0.47 nmol/L (<0.90)
[2019-03-06 17:17] LABS: Renin 0.8 ng/mL/h
== END 2019-03-04 18:10 | disposition home or self-care (01) | DRG 199 ==
LOC: ED 16:04 → ICU 21:05 → MEDTELE 03-03 16:08
PROVIDERS: ADMIT Internal Medicine; ATTEND Internal Medicine
DX: I16.0 Hypertensive urgency (principal); I24.8 Other forms of acute ischemic heart disease; R07.9 Chest pain, unspecified; I10 Essential (primary) hypertension; F41.9 Anxiety disorder, unspecified; F32.9 Major depressive disorder, single episode, unspecified; I25.10 Atherosclerotic heart disease of native coronary artery without angina pectoris; F17.210 Nicotine dependence, cigarettes, uncomplicated; R74.8 Abnormal levels of other serum enzymes; I77.819 Aortic ectasia, unspecified site; J45.909 Unspecified asthma, uncomplicated; G47.30 Sleep apnea, unspecified; K21.9 Gastro-esophageal reflux disease without esophagitis; Z91.14 Patient's other noncompliance with medication regimen; Z88.8 Allergy status to other drugs, medicaments and biological substances; Z82.49 Family history of ischemic heart disease and other diseases of the circulatory system; Z80.9 Family history of malignant neoplasm, unspecified; Z91.19 Patient's noncompliance with other medical treatment and regimen
CPT/HCPCS: 36415; 71046; 78452; 80048; 80053; 80061; 81003; 81015; 82088; 82533; 82570; 83036; 83516; 83835; 84156; 84244; 84443; 84484; 84702; 85025; 85610; 86038; 87086; 87641; 93005; 93017; 93306; 93975; 99285; A9270-GY; A9502; J0280; J0360; J1650; J2060; J2785; J3490

== ENCOUNTER 2019-07-20 16:50 | Inpatient (IN) | payer MEDICAID, OTHER ==
[2019-07-20 17:26] LABS: ABS Basophils 0.1 10^3/ul (0-0.2); ABS Eosinophils 0.2 10^3/ul (0-0.6); ABS Lymphocytes 1.9 10^3/ul (1.0-4.8); ABS Monocytes 0.6 10^3/ul (0-0.8); ABS Neutrophils 8.3 10^3/ul (1.5-7.7); Eosinophil % 2.2 %; Hematocrit 46 % (35-47); Hemoglobin 15.8 g/dL (12.0-16.0); Mean Corpuscular HGB Conc 34 g/dL (31-36); Mean Corpuscular Hemoglobin 31 pg (27-31); Mean Corpuscular Volume 91 fL (80-97); Mean Platelet Volume 6.7 fL (7.4-10.4); Platelet Count 328 10^3/uL (150-450); Red Blood Count 5.05 10^6 /uL (3.70-4.87); Red Cell Distribution Width 15 % (10-15); White Blood Count 11.1 10^3/uL (3.5-10.8)
[2019-07-20 17:33] LABS: INR 0.92 (0.82-1.09)
--- NOTE | 2019-07-20 17:39 | ED ---
HPI Chest Pain - HPI Summary HPI Summary: This patient is a 43 year old F presenting to [facility] with a chief complaint of chest pain since one hour ago. The pain feels better now; and the pt was sitting when the pain began. Pt has a PMHx of nSTEMI, and had a similar feeling of pain then. Pt has HTN, and high RBC. Pt has a FHx of heart disease, and DE. Pt takes 81 mg of aspirin. Pt smokes, 1 pack a day. Pt has been very stressed all day, it is both her sons birthday, and one of them last August. She has PMHx of anxiety. Patient reports SOB. Per triage, the patient rates the pain 4/10 in severity. Patient had stress in February that was non diagnostic. - History of Current Complaint Chief Complaint: EDChestPainROMI Time Seen by Provider: 07/20/19 16:58 Hx Obtained From: Patient Onset/Duration: Started Hours Ago Time of Onset: 16:25 Timing: Constant Initial Severity: Moderate Current Severity: Mild Pain Intensity: 4 Pain Scale Used: 0-10 Numeric Chest Pain Location: Diffuse Aggravating Factor(s): Nothing Alleviating Factor(s): Nothing Associated Signs and Symptoms: Positive: Chest Pain, Shortness of Breath - Additional Pertinent History Primary Care Physician: [id number] - Allergy/Home Medications Allergies/Adverse Reactions: Allergies Allergy/AdvReac Type Severity Reaction Status Date / Time hydrochlorothiazide Allergy Anaphylatic Verified 07/20/19 16:57 Shock lisinopril Allergy Anaphylatic Verified 07/20/19 16:57 Shock PMH/Surg Hx/FS Hx/Imm Hx Endocrine/Hematology History: Denies: Hx Diabetes, Hx Thyroid Disease Cardiovascular History: Reports: Hx Hypertension Denies: Hx Angina, Hx Hypercholesterolemia Respiratory History: Reports: Hx Asthma Denies: Hx Chronic Obstructive Pulmonary Disease (COPD) GI History: Reports: Hx Gastroesophageal Reflux Disease Comment Only: Hx Ulcer - gerd Sensory History: Denies: Hx Contacts or Glasses, Hx Hearing Aid Opthamlomology History: Denies: Hx Contacts or Glasses Psychiatric History: Reports: Hx Anxiety - Surgical History Surgery Procedure, Year, and Place: C section, ANKLE SURGERY (RIGHT) Infectious Disease History: No Infectious Disease History: Denies: Hx Hepatitis, Hx Human Immunodeficiency Virus (HIV), History Other Infectious Disease, Traveled Outside the [place] in Last 30 Days - Family History Known Family History: Positive: Cardiac Disease, Hypertension - Paternal, Diabetes, Other - DE - Social History Alcohol Use: Weekly Alcohol Amount: 3-4 drinks twice a week Substance Use Type: Reports: None Hx Tobacco Use: Yes Smoking Status (MU): Heavy Every Day Tobacco Smoker Type: Cigarettes Amount Used/How Often: 1 PPD Review of Systems Positive: Chest Pain Positive: Shortness Of Breath All Other Systems Reviewed And Are Negative: Yes Physical Exam - Summary Physical Exam Summary: Constitutional: Well-developed, Well-nourished, Alert. (-) Distressed Skin: Warm, Dry HENT: Normocephalic; Atraumatic Eyes: Conjunctiva normal Neck: Musculoskeletal ROM normal neck. (-) JVD, (-) Stridor, (-) Nuchal rigidity Cardio: Rhythm regular, rate normal, Heart sounds normal; Intact distal pulses; Radial pulses are 2+ and symmetric. (-) Murmur Pulmonary/Chest wall: Effort normal. (-) Respiratory distress, (-) Wheezes, (-) Rales Abd: Soft, (-) tenderness, (-) Distension, (-) Guarding, (-) Rebound Musculoskeletal: (-) Edema Lymph: (-) Cervical adenopathy Neuro: Alert, Oriented x3 Psych: Anxious, tearful Triage Information Reviewed: Yes Vital Signs On Initial Exam: Initial Vitals Temp Pulse Resp BP Pulse Ox 98.7 F 77 20 184/89 100 07/20/19 16:55 07/20/19 16:55 07/20/19 16:55 07/20/19 16:55 07/20/19 16:55 Vital Signs Reviewed: Yes Procedures - Sedation Patient Received Moderate/Deep Sedation with Procedure: No Diagnostics - Vital Signs Vital Signs Temp Pulse Resp BP Pulse Ox 07/20/19 16:55 98.7 F 77 20 184/89 100 - Laboratory Lab Results: Lab Results 07/20/19 07/20/19 Range/Units 17:21 17:21 WBC 11.1 H (3.5-10.8) 10^3/uL RBC 5.05 H (3.70-4.87) 10^6 /uL Hgb 15.8 (12.0-16.0) g/dL Hct 46 (35-47) % MCV 91 (80-97) fL MCH 31 (27-31) pg MCHC 34 (31-36) g/dL RDW 15 (10-15) % Plt Count 328 (150-450) 10^3/uL MPV 6.7 L (7.4-10.4) fL Neut % (Auto) 74.8 % Lymph % (Auto) 17.0 % Lipscomb % (Auto) 5.1 % Eos % (Auto) 2.2 % Baso % (Auto) 0.9 % Absolute Neuts (auto) 8.3 H (1.5-7.7) 10^3/ul Absolute Lymphs (auto) 1.9 (1.0-4.8) 10^3/ul Absolute Monos (auto) 0.6 (0-0.8) 10^3/ul Absolute Eos (auto) 0.2 (0-0.6) 10^3/ul Absolute Basos (auto) 0.1 (0-0.2) 10^3/ul Absolute Nucleated RBC 0.0 10^3/ul Nucleated RBC % 0.0 INR (Anticoag Therapy) 0.92 (0.82-1.09) Result Diagrams: 07/20/19 17:21 07/20/19 17:21 Lab Statement: Any lab studies that have been ordered have been reviewed, and results considered in the medical decision making process. - Radiology CXR Radiology Interpretation Completed By: ED Physician Summary of Radiographic Findings: CXR reveals, per radiologist, IMPRESSION: #. Stigmata of obstructive lung disease. No acute pulmonary or cardiac process evident.ED physician has reviewed this radiology report. - EKG 1650 Cardiac Rate: NL EKG Rhythm: Sinus Rhythm Summary of EKG Findings: An EKG at 16:50 reveals normal sinus rhythm 78 bpm,ST- depressions minimal in lead I and II, aVF, worsening depression in V4, V5, V6 when compared to 03/02/19. ED physcian has interpreted this report. 1740 Cardiac Rate: NL EKG Rhythm: Sinus Rhythm Summary of EKG Findings: An EKG at 1740 reveals normal sinus rhythm 70 pm, ST depressions noted in V4, V5, V6 have improved with no change from 03/02/19. ED physician has intepreted this report. Re-Evaluation - Re-Evaluation First Eval Re-Evaluation Time: 19:36 Comment: Updated pt plan of care. Second Eval Re-Evaluation Time: 21:07 Comment: Discussed results and plan of care with pt for observation given elevated troponin. Patient and mother in agreement, will give ativan PO for anxiety. Chest Pain Course/Dx - Course Course Of Treatment: 43 y/o F w hx HTN, tobacco use and NSTEMI p/w CP. - PE anxious (about son's ). - initial EKG w worsening ST depressions in V456, repeat EKG similar to February. D/w permastone installer health informatics advisor who agrees w second trop since first is normal and recommends imdur 30. Given aspirin as well. - concern for ACS given new EKG changes. - Diagnoses Provider Diagnoses: NSTEMI (non-ST elevated myocardial infarction), Chest pain - Provider Notifications Discussed Care Of Patient With: Mellisa Baig Time Discussed With Above Provider: 17:52 Instructed by Provider To: Other - Jovanni recommends giving her 30 of imdur daily, and repeat troponin. 21:14 - Discussed case with Dr. Hanna who accepts pt for admission. Discharge ED - Sign-Out/Discharge Documenting (check all that apply): Patient Departure - Admit - Discharge Plan Condition: Stable Disposition: ADMITTED TO [facility] Referrals: No Primary Care Phys,NOPCP [Primary Care Provider] - - Billing Disposition and Condition Condition: STABLE Disposition: Admitted to [facility] - Attestation Statements Document Initiated by Abrahamibe: Yes Documenting Scribe: Vilma Portillo Provider For Whom Scribe is Documenting (Include Credential): Kadie Huerta MD Scribe Attestation: IVilma, scribed for Kadie Huerta MD on 07/20/19 at 2142. Scribe Documentation Reviewed: Yes Provider Attestation: The documentation as recorded by the Vilma peres accurately reflects the service I personally performed and the decisions made by , Kadie Huerta MD Status of Scribe Document: Viewed
[2019-07-20 17:43] LABS: Albumin 4.4 g/dL (3.2-5.2); Albumin/Globulin Ratio 1.3 (1-3); Calcium 9.2 mg/dL (8.6-10.3); EGFR African American 95.6 (>60); Globulin 3.3 g/dL (2-4); Potassium 3.6 mmol/L (3.5-5.0); Total Bilirubin 0.5 mg/dL (0.2-1.0); Total Protein 7.7 g/dL (6.4-8.9)
[2019-07-20] MEDS ORDERED: Aspirin 81 mg CHEW TAB* 81 MG TAB.CHEW PO ONE (17:46)
[2019-07-20] MEDS ORDERED: Isosorbide Mononitrate ER TAB* 30 MG PO ONE ×2 (17:53→17:55)
[2019-07-20 21:01] LABS: Troponin I 0.09 ng/mL (<0.04)
[2019-07-20] MEDS ORDERED: LORazepam TAB(*) 1 MG PO ONE (21:12)
[2019-07-20] MEDS ORDERED: Enoxaparin(*) 40 MG/0.4 ML SYR SUBCUT SCH (23:00)
[2019-07-21 00:03] LABS: Troponin I 0.19 ng/mL (<0.04)
--- NOTE | 2019-07-21 01:44 | HP ---
CC: Dr. Nan Martinez * ADMISSION HISTORY AND PHYSICAL: DATE OF ADMISSION: 07/20/19 PRIMARY CARE PHYSICIAN: Dr. Nan Martinez. CHIEF COMPLAINT: Chest pain. HISTORY OF PRESENT ILLNESS: This is a 43-year-old female with past medical history of hypertension, tobacco use disorder, dyslipidemia, and recently admitted for chest pain on 03/02/19, was noted to have abnormal stress test, but never had a cardiac cath. She comes in again with chest pain. The patient was apparently stressed due to some emotional stress regarding her stepson dying and she was sitting, all of a sudden, started experiencing substernal chest pain pressure like, was noted to be 4/10 in intensity, nonradiating, lasted about 15 minutes before it resolved on its own. However, the pain kept recurring, so she finally decided to come to the ER. She stated that burping after drinking severo emmanuel seems to have helped the pain, but otherwise no nausea or vomiting, no diarrhea. She does have cough, but she states that it was because of her history of smoking and has not changed in intensity. She otherwise denies any fever, chills, any weakness, or numbness. She did have some momentary tingling sensation in both her hands, lasting about a minute or two and has resolved completely. She initially brushed it off thinking that this is anxiety, but given her history of abnormal stress test, she decided to come to the ER and she was to be discharged from the ER; however, the second troponin was minimally elevated, so she is being admitted for further monitoring of her troponin. PAST MEDICAL HISTORY: As mentioned hypertension; dyslipidemia; anxiety; depression; smoking; gastroesophageal reflux disease; and history of exercise- induced asthma in her childhood, does use albuterol intermittently but has not used in many years. PAST SURGICAL HISTORY: She has had a and a right ankle surgery. HOME MEDICATIONS: The patient is currently on: 1. Atorvastatin 20 mg every evening. 2. Aspirin 81 mg oral daily. 3. Metoprolol 12.5 mg twice a day. 4. Cozaar 50 mg daily. 5. Amlodipine 10 mg daily. 6. Lexapro 10 mg at bedtime. ALLERGIES: The patient listed as allergic to HYDROCHLOROTHIAZIDE and LISINOPRIL , both of which cause anaphylactic shock. FAMILY HISTORY: The patient's dad had an open heart surgery, he is live at age 61. All 4 siblings are , have had heart attack of various degrees. Mother, age 60, did not have any medical problems. SOCIAL HISTORY: She lives at home with her and an adopted child and as mentioned her stepson unexpectedly in August of 2018, which causes severe anxiety, especially given that today was the birthday of that son. As mentioned, she had a history of 20 years history of smoking, usually smokes half to less than a pack a day. Denies any alcohol use. She states that she usually drinks about once a week and denies any other illicit drug use. She is otherwise full code, states that her mom and her will be the surrogate decision makers, but she has not officially assigned any healthcare proxy. REVIEW OF SYSTEMS: A 14-point review of systems did not reveal any new information, other than the ones stated in the HPI. PHYSICAL EXAMINATION GENERAL: The patient is awake, alert, and oriented x3 and did not appear to be in any acute distress. VITAL SIGNS: In the ER, temperature was noted to be 98.7, BP 146/74, heart rate 64, respiration rate 20, saturating at 95% on room air. HEAD AND NECK: Atraumatic, normocephalic. Bilateral pupils were reactive. Oral mucosa was moist. Neck: Supple. No jugular venous distention. LUNGS: Clear to auscultation bilaterally. No wheezing, rhonchi, or rales. HEART: S1, S2. Regular rate and rhythm. ABDOMEN: Soft, nontender, nondistended. EXTREMITIES: No cyanosis, clubbing, or edema. DIAGNOSTIC STUDIES/LAB DATA: CBC was remarkable for minimally elevated white count of 11.5, otherwise with normal hemoglobin and hematocrit. Coagulation profile shows INR of 0.92. Comprehensive metabolic panel was unremarkable. First set of troponin was negative. Second set showed minimally elevated at 0.09. Chest x-ray shows stigmata of obstructive lung disease, but otherwise no acute cardiopulmonary disease evidence. EKG showed some ST depression in the lateral leads and minimal ST elevation in lead V1 and V2. The initial EKG showed a much significant ST depression in the lateral leads, which has since resolved. The patient's older EKG from the February admission also showed the similar pattern of ST depression in the lateral leads V4 to V6 and minimal ST elevation in V2 and overall wave pattern was essentially unchanged. IMPRESSION: This is a 43-year-old female with history of hypertension, dyslipidemia, and previously abnormal stress test, here for another episode of chest pain, which only lasted 15 minutes and currently resolved, but noted to have minimally elevated troponin. ASSESSMENT: 1. Chest pain. Rule out any coronary event. We will restart her home dose of aspirin and Lipitor along with her blood pressure medications, get serial troponins and monitor the patient on telemetry. Repeat the A1c and lipid panel along with an echocardiogram and consider cardiology consult in the morning to see if she would benefit from a cardiac catheterization. 2. History of hypertension. Restart home medications and monitor blood pressure. 3. History of dyslipidemia. Restart Lipitor. Fasting lipid panel is pending. 4. History of anxiety and depression. Restart her Lexapro. 5. DVT prophylaxis. We will start the patient on Lovenox. 6. Code status. Full code. [id number]/CPS #: [id number] MTDD
[2019-07-21 02:18] LABS: Troponin I 0.19 ng/mL (<0.04)
[2019-07-21 05:09] LABS: ABS Basophils 0.1 10^3/ul (0-0.2); ABS Eosinophils 0.3 10^3/ul (0-0.6); ABS Lymphocytes 1.8 10^3/ul (1.0-4.8); ABS Monocytes 0.7 10^3/ul (0-0.8); ABS Neutrophils 6.9 10^3/ul (1.5-7.7); Eosinophil % 3.3 %; Hematocrit 41 % (35-47); Hemoglobin 13.8 g/dL (12.0-16.0); Lymphocyte % 18.2 %; Mean Corpuscular HGB Conc 34 g/dL (31-36); Mean Corpuscular Hemoglobin 31 pg (27-31); Mean Corpuscular Volume 91 fL (80-97); Mean Platelet Volume 6.6 fL (7.4-10.4); Nucleated Red Blood Cells % 0.1; Platelet Count 301 10^3/uL (150-450); Red Blood Count 4.51 10^6 /uL (3.70-4.87); Red Cell Distribution Width 15 % (10-15); White Blood Count 9.8 10^3/uL (3.5-10.8)
[2019-07-21 05:26] LABS: BUN/Creatinine Ratio 17.6 (8-20); Calcium 8.4 mg/dL (8.6-10.3); EGFR African American 115.4 (>60); EGFR Non-African American 95.4 (>60); HDL Cholesterol 39.7 mg/dL; Potassium 3.7 mmol/L (3.5-5.0)
[2019-07-21 05:34] LABS: Troponin I 0.19 ng/mL (<0.04)
[2019-07-21 05:49] LABS: TSH (Thyroid Stimulating Horm) 1.43 mcIU/mL (0.34-5.60)
[2019-07-21] MEDS ORDERED: Enoxaparin(*) 40 MG/0.4 ML SYR SUBCUT SCH (06:00)
[2019-07-21] MEDS: Losartan TAB* 25 MG PO SCH (08:12)
[2019-07-21] MEDS: Metoprolol Tartrate TAB* 25 MG PO SCH ×2 (08:12→21:11)
[2019-07-21] MEDS: Aspirin EC TAB* 81 MG TAB.EC PO SCH (08:12)
[2019-07-21] MEDS: amLODIPine TAB* 5 MG PO SCH (08:12)
[2019-07-21] MEDS ORDERED: Enoxaparin(*) 60 MG/0.6 ML SYR SUBCUT ONE (10:08)
[2019-07-21 11:14] LABS: Troponin I 0.13 ng/mL (<0.04)
--- NOTE | 2019-07-21 11:15 | ECHO ---
*[facility]* [place] [address] Fax #: [phone] Transthoracic Echocardiogram Patient: Aleida Altamirano : 1975 Study Date: 07/21/2019 Age: 43 Gender: F HR: 73 bpm Height: 66 in /167.6 cm BSA: 2.08 m^2 Weight: 218.5 lb /99.3 kg BMI: 35.3 kg/m^2 *Machine Finisher: * Marge Brody RDCS RN *Referring Physician: * Ry Hanna *Reading Physician: * Mellisa Baig MD Indications: Chest Pain, unspecified. History: GERD. Exercise-induced asthma in childhood. Risk factors: Current tobacco use. Hypertension. Obese. Dyslipidemia. Conclusions Summary: - Left ventricle: The cavity size is normal. Wall thickness is moderately increased. Systolic function is hyperdynamic. The estimated ejection fraction is 65-70%. There is turbulence and increased velocities with dagger profiles in the left ventricle and left ventricular outflow tract at the septal knuckle up to a velocity of 2.3 m/sec. Wall motion is normal; there are no regional wall motion abnormalities. - Right ventricle: Systolic function is normal. - Mitral valve: There is trace regurgitation. - Tricuspid valve: There is trace regurgitation. - Compared with prior echocardiogram of 03/03/19, left ventricular hypertrophy seen previously, prior ejection fraction 55-60%. Dagger shaped left ventricular outflow tract envelopes newly noted, valve function is stable, no longer see atrial enlargement or dilatation of the ascending aorta. Study data: Transthoracic echocardiogram. Procedure: Transthoracic echocardiography was performed. Image quality was fair. The study was technically limited due to body habitus and Smoking history. Complete 2D, spectral Doppler, and color flow Doppler. Location: Bedside. Patient status: Inpatient. Patient room number: 445-01. Rhythm: Normal sinus rhythm. Findings Left ventricle: The cavity size is normal. Wall thickness is moderately increased. Systolic function is hyperdynamic. The estimated ejection fraction is 65-70%. There is turbulence and increased velocities with dagger profiles in the left ventricle and left ventricular outflow tract at the septal knuckle up to a velocity of 2.3 m/sec. Wall motion is normal; there are no regional wall motion abnormalities. There is no consistent Doppler evidence of clinically significant diastolic dysfunction. Right ventricle: The cavity size is normal. Systolic function is normal. Left atrium: The atrium is normal in size. Right atrium: The atrium is normal in size. Mitral valve: The leaflets are mildly thickened. There is no evidence of stenosis. There is trace regurgitation. Aortic valve: The valve is trileaflet. The leaflets are normal thickness. There is no evidence of stenosis. There is no significant regurgitation. Tricuspid valve: The valve is structurally normal. There is no evidence of stenosis. There is trace regurgitation. Pulmonic valve: The valve is structurally normal. There is no evidence of stenosis. There is trace regurgitation. Aorta: Aortic root: The aortic root is appears normal. Ascending aorta: The ascending aorta is not dilated. Aortic arch: The aortic arch is appears normal. Pericardium: There is no pericardial effusion. Pulmonary arteries: The main pulmonary artery is normal-sized. Systolic pressure can not be accurately estimated. Systemic veins: Inferior vena cava: The vessel is normal in size. There is (< 50%) respiratory change in the IVC dimension. Measurements Left ventricle Value Ref Aortic valve Value Ref RUBÉN, LAX 4.1 cm 3.8 - 5.2 Delores diam, ED 2.0 cm ---- ESD, LAX 2.2 cm 2.2 - 3.5 Peak v, S 1.93 m/sec ---- FS, LAX (H) 47 % 27 - 45 VTI, S 41.7 cm ---- PW, ED (H) 1.6 cm 0.6 - 0.9 Mean grad, S 9.0 mm Hg ---- IVS/PW, ED 0.96 Peak grad, S 15.0 mm Hg ---- Qs 4 L/min LVOT/AV, VTI ratio 0.71 ---- E', lat delores, TDI (L) 8.9 cm/sec >=10.0 E/e', lat delores, 11 Mitral valve Value Ref TDI Peak E 1.02 m/sec ---- E', med delores, TDI (L) 6.5 cm/sec >=7.0 Peak A 0.95 m/sec - --- E/e', med delores, 16 Decel time 257 ms ---- TDI Peak grad, D 4.2 mm Hg ---- E', avg, TDI 7.7 cm/sec Peak E/A ratio 1.1 ---- E/e', avg, TDI 13 <=14 Pulmonic valve Value Ref LVOT Value Ref Peak v, S 0.79 m/sec ---- Peak clark, S 1.44 m/sec Peak grad, S 3.0 mm Hg ---- VTI, S 29.5 cm Peak grad, S 8 mm Hg Aortic root Value Ref Mean grad, S 5 mm Hg Root diam 2.6 cm <4.2 Ventricular septum Value Ref Ascending aorta Value Ref IVS, ED (H) 1.5 cm 0.6 - 0.9 AAo AP diam, S 3.1 cm ---- AAo AP diam/bsa, S 1.5 cm/m^2 ---- Right ventricle Value Ref RUBÉN, LAX 3.4 cm Aortic arch Value Ref RUBÉN minor ax, A4C 3.2 cm 1.9 - 3.5 Arch diam 2.3 cm ---- mid Decending aorta Value Ref Left atrium Value Ref Rashel peak clark 1.16 m/sec ---- AP dim, ES 3.80 cm 2.70 - 3.80 Inferior vena cava Value Ref ML dim, A4C 4.4 cm Diam 1.9 cm ---- SI dim, A4C 5.3 cm Vol/bsa, ES, 1-p 31 ml/m^2 11 - 40 A4C Vol/bsa, ES, A/L 29 ml/m^2 16 - 34 Right atrium Value Ref ML dim, ES, A4C 4.0 cm 2.6 - 4.4 SI dim, ES, A4C 4.3 cm 3.4 - 5.3 Estimated RAP 8 mm Hg Legend: (L) and (H) charles values outside specified reference range. Prepared and electronically signed by Mellisa Baig MD 07/21/2019 11:14
[2019-07-21 13:52] LABS: Troponin I 0.13 ng/mL (<0.04)
--- NOTE | 2019-07-21 14:57 | PN ---
Subjective Date of Service: 07/21/19 Interval History: No further chest pain. She has no complaints today. Her mom is at the bedside. EKG this morning reviewed. No overnight tele events. Objective Active Medications: Amlodipine Besylate (Norvasc Tab*) 10 mg PO DAILY [facility] Last Admin: 07/21/19 08:12 Dose: 10 mg Aspirin (Aspirin Ec Tab*) 81 mg PO DAILY [facility] Last Admin: 07/21/19 08:12 Dose: 81 mg Atorvastatin Calcium (Lipitor*) 20 mg PO 1700 [facility] Enoxaparin Sodium (Lovenox(*)) 100 mg SUBCUT Q12H [facility] Escitalopram Oxalate (Lexapro *) 10 mg PO BEDTIME [facility] Losartan Potassium (Cozaar Tab*) 50 mg PO DAILY [facility] Last Admin: 07/21/19 08:12 Dose: 50 mg Metoprolol Tartrate (Lopressor Tab*) 12.5 mg PO BID [facility] Last Admin: 07/21/19 08:12 Dose: 12.5 mg Vital Signs - 8 hr 07/21/19 07/21/19 07/21/19 07:26 07:48 11:18 Temperature 97.8 F 98.3 F Pulse Rate 78 67 Respiratory 20 20 21 Rate Blood Pressure 167/80 141/73 (mmHg) O2 Sat by Pulse 92 95 Oximetry Oxygen Devices in Use Now: None Appearance: alert, well appearing Eyes: No Scleral Icterus Ears/Nose/Mouth/Throat: NL Teeth, Lips, Gums Neck: NL Appearance and Movements; NL JVP Respiratory: Symmetrical Chest Expansion and Respiratory Effort, Clear to Auscultation Cardiovascular: NL Sounds; No Murmurs; No JVD, RRR Abdominal: NL Sounds; No Tenderness; No Distention Lymphatic: No Cervical Adenopathy Extremities: No Edema Result Diagrams: 07/21/19 05:00 07/21/19 05:00 Additional Lab and Data: Lab Results 07/20/19 07/20/19 Range/Units 17:21 17:21 WBC 11.1 H (3.5-10.8) 10^3/uL RBC 5.05 H (3.70-4.87) 10^6 /uL Hgb 15.8 (12.0-16.0) g/dL Hct 46 (35-47) % MCV 91 (80-97) fL MCH 31 (27-31) pg MCHC 34 (31-36) g/dL RDW 15 (10-15) % Plt Count 328 (150-450) 10^3/uL MPV 6.7 L (7.4-10.4) fL Neut % (Auto) 74.8 % Lymph % (Auto) 17.0 % Alcorn % (Auto) 5.1 % Eos % (Auto) 2.2 % Baso % (Auto) 0.9 % Absolute Neuts (auto) 8.3 H (1.5-7.7) 10^3/ul Absolute Lymphs (auto) 1.9 (1.0-4.8) 10^3/ul Absolute Monos (auto) 0.6 (0-0.8) 10^3/ul Absolute Eos (auto) 0.2 (0-0.6) 10^3/ul Absolute Basos (auto) 0.1 (0-0.2) 10^3/ul Absolute Nucleated RBC 0.0 10^3/ul Nucleated RBC % 0.0 INR (Anticoag Therapy) 0.92 (0.82-1.09) Assess/Plan/Problems-Billing Assessment: This is a 43 year old woman with history of HTN, chest pain with an abnormal stress test in February treated medically, tobacco use, and positive family history of early cardiac disease, who presented to the ED on 07/20 after having chest pain at rest x 3. - Patient Problems (1) NSTEMI (non-ST elevated myocardial infarction) Current Visit: Yes Status: Acute Code(s): I21.4 - NON-ST ELEVATION (NSTEMI) MYOCARDIAL INFARCTION SNOMED Code(s): 07357104 Comment: initial EKG had marked ST depressions in v4-6, which are now resolved troponin peaked at 0.2 given her family history, risk factors, and ekg changes, will start therapeutic lovenox discussed case with Dr. Baig, who will see her today continue beta stephanie and statin (2) Hypertension Current Visit: No Status: Acute Code(s): I10 - ESSENTIAL (PRIMARY) HYPERTENSION SNOMED Code(s): 65335487 Comment: may need to increase dose of antihypertensives; will follow underwent outpatient work up for secondary causes which was negative (3) Tobacco abuse Current Visit: No Status: Acute Code(s): Z72.0 - TOBACCO USE SNOMED Code(s ): 251912686 Comment: nicotine replacement as needed
[2019-07-21] MEDS ORDERED: Atorvastatin* 20 MG TAB PO SCH (17:00)
[2019-07-21] MEDS: Escitalopram * 10 MG TAB PO SCH (21:11)
[2019-07-21] MEDS ORDERED: Enoxaparin(*) 100 MG/ML SYR SUBCUT SCH (22:00)
--- NOTE | 2019-07-21 22:16 | CONS ---
CC: Hospitalist Service; Dr. Martinez * CONSULTATION REPORT: DATE OF CONSULT: 07/21/19 REASON FOR CONSULTATION: Chest pain and abnormal EKG. CHIEF COMPLAINT: Chest pain and panicky feeling. HISTORY OF PRESENT ILLNESS: Aleida Altamirano is a very nice 43-year-old woman, who is a smoker, and has family history of early atherosclerotic disease. The patient had presented in February of this year with chest pain, underwent consultations with Dr. Paige and Dr. Perales. Two stress tests and an echo at that time was not felt to be ischemic. The patient was placed on medical management. Yesterday, the patient was sitting, watching kids, but was under emotional stress as it was the anniversary of a child's . At first she felt panicky and then she developed tightness across the upper portion of the chest. It seemed to wax and wane. It was associated with at first feeling hot and later feeling cold and shortness of breath. The EKG in the ER showed significant ST depression in the lateral leads, which resolved. Since the patient has been in the hospital overnight, she has had no recurrence of the chest discomfort. She says this chest discomfort is a little different than what occurred in February. PAST MEDICAL HISTORY: The patient has a past medical history of: 1. Hypertension. 2. Dyslipidemia. 3. Obesity. 4. Reflux. 5. Asthma. MEDICATIONS: Outpatient medications had included: 1. Metoprolol. 2. Cozaar. 3. Amlodipine. 4. Atorvastatin. 5. Aspirin. 6. Lexapro. Current inpatient medications include: 1. Norvasc 10 mg a day. 2. Aspirin 81 mg a day. 3. Lipitor 80 mg a day. 4. Lovenox. 5. Lexapro 10 mg a day. 6. Cozaar 50 mg a day. 7. Lopressor 12.5 mg b.i.d. ALLERGIES: Include HYDROCHLOROTHIAZIDE and LISINOPRIL (anaphylactic shock). SOCIAL HISTORY: The patient lives at home with her boyfriend and adopted child. She is an active smoker, occasional drinker. No history of recreational drug use, specifically denies cocaine. FAMILY HISTORY: Family history is strongly positive for atherosclerotic heart disease. Her father had open heart surgery in his 40s. Multiple other family members have of myocardial infarctions. REVIEW OF SYSTEMS: Negative for recent fevers, chills, sweats, change in bowel or bladder habits. No change in medications. No missed meds. No over-the- counter meds. She admits to being anxious due to yesterday being the birthday of her stepson. PHYSICAL EXAMINATION: On exam, the patient is 5 feet 6 inches, weight is 216 pounds, with a BMI of 35. Vital Signs: Blood pressure 145/71, pulse is 64, respiratory rate is 20, oxygen saturation 96% on room air, temperature 99.3. General Appearance: Very obese, particularly centripetally obese, middle-aged woman, seated on the bed with her . Appears comfortable, in no acute distress. Psychological: A little emotionally labile. Neurological: Awake, alert, and oriented to person, place, and time. Cranial nerves II through XII intact. Grossly normal sensory and motor function in the upper and lower extremities, and normal gait in the room. Skin: Warm, dry. HEENT: Pupils are equal and round. Mucous membranes moist. Dentition not great. Neck without thyromegaly or lymphadenopathy. Good carotid pulses without bruits. Lungs: Breath sounds clear with good effort. No wheezes, rales or rhonchi. Coronary: S1 and S2, regular. Soft, slow murmur, increased with end expiration , heard in the upper sternal border. Abdomen: Overweight. Active bowel sounds. Nontender. Suboptimal exam for hepatomegaly. Lower extremities were free of edema with good posterior tibial pulses and good radial pulses in the upper extremities. DIAGNOSTIC STUDIES/LAB DATA: 12-lead ECG from 07/20/19 at 1650, showed normal sinus rhythm, 78 beats a minute, QRS axis +30, normal AV and IV conduction times. [address] depression in the lateral leads, V4 through V6. When this is compared with her baseline EKG of 03/02/19, the ST depression is much more pronounced and when compared with her EKG of today at 1114, also the ST segments in the lateral leads are more consistent with left ventricular hypertrophy and repolarization changes. Echocardiogram done today, 07/21/19, shows hyperdynamic left ventricle with moderate hypertrophy and an ejection fraction of 65% to 70%, with evidence of resting left ventricular outflow tract gradient. Normal right ventricular function. All valves showed good function. Labs: White count 9.8, hematocrit 41, platelets 301. INR 0.92. Sodium 136, potassium 3.7, chloride 109, bicarb 22, BUN 12, creatinine 0.68, glucose 123. Hemoglobin A1c of 6. Troponin #1 is 0.00, #2 is 0.09, #3 is 0.19, #4 is 0.19, # 5 is 0.19, #6 is 0.20, #7 is 0.13. Total cholesterol 113, triglycerides 125, LDL cholesterol 48, HDL cholesterol 39. Normal transaminases. IMPRESSION: In summary, Aleida Altamirano is a 43-year-old woman with chest pain under emotional stress, associated with acute ST depression and elevated troponin. She has atherosclerotic risks of active smoking, hypertension, dyslipidemia, morbid obesity, and a strong family history of early atherosclerotic heart disease. I think the differential here would be the hyperdynamic ventricle with left ventricular outflow tract obstruction leading to decreased cardiac output and perfusion of the coronary arteries versus atherosclerotic heart disease with increased work of the heart from her anxiety or a combination. Because of the patient's high atherosclerotic risks, ECG changes and elevated troponin, I recommended cardiac catheterization to definitively determine if there is coronary artery disease and, if so, if it is significant. Whatever the cath shows, she needs aggressive medical management. I strongly advised the patient and her boyfriend to stop smoking now. She appears to have early diabetes and this is going to also be extremely important to optimize and manage for her long-term health. We need to continue with aggressive cholesterol control, blood pressure control and she ideally would have a better diet and exercise regimen once it is deemed to safe. The patient is understanding, but I think it is going to be hard for her to comply. Additional recommendations will be made pending the results of her cardiac catheterization. I do not have records of her blood pressure control over the years, but if her left ventricular hypertrophy is out of proportion to her degree of hypertension , then consideration could be made for an MRI to look for other pathology such as hypertrophic cardiomyopathy or infiltrative diseases, although this could be done as an outpatient. Thank you for allowing me to assist in this nice woman's care. [id number]/[facility] #: [id number] BETO
[2019-07-22] MEDS ORDERED: amLODIPine TAB* 5 MG PO ONE ×2 (02:30→14:30)
[2019-07-22] MEDS ORDERED: NS 0.9% 1000 ML** 1,000 ML IV SCH ×2 (07:00→12:29)
[2019-07-22] MEDS: Losartan TAB* 25 MG PO SCH (07:59)
[2019-07-22] MEDS: amLODIPine TAB* 5 MG PO SCH (07:59)
[2019-07-22] MEDS: Aspirin EC TAB* 81 MG TAB.EC PO SCH (07:59)
[2019-07-22] MEDS: Metoprolol Tartrate TAB* 25 MG PO SCH ×3 (07:59→22:12)
[2019-07-22] MEDS ORDERED: fentaNYL* 50 MCG/ML 2 ML VIAL (100 MCG VIAL) ONE ×2 (08:37→11:18)
[2019-07-22] MEDS ORDERED: Heparin(*) 1000 UNIT/ML 10 ML VIAL CATH LAB IV ONE (08:37)
[2019-07-22] MEDS ORDERED: Midazolam* 1 MG/ML 5 ML VIAL (5 MG) ONE ×2 (08:37→11:18)
[2019-07-22] MEDS ORDERED: nitroGLYCERIN DRIP* 0 MCG/0 ML BTL ONE (08:38)
[2019-07-22] MEDS ORDERED: VERAPAMIL 2.5 MG/ML 2 ML VIAL ** 5 mg/2 ml ONE (08:38)
[2019-07-22] MEDS ORDERED: Lidocaine 1% INJ* 10 MG/ML 30 ML SDV ONE ×2 (08:38→11:09)
[2019-07-22] MEDS ORDERED: Iohexol 350 (CONTRAST) 200 ML MDV IV ONE ×3 (08:38→11:49)
[2019-07-22] MEDS ORDERED: Heparin 2 UNITS/ML IVPREMIX* 1,000 ML IV ONE ×2 (08:38→12:08)
[2019-07-22] MEDS ORDERED: Ticagrelor* 90 MG TAB PO ONE (11:48)
[2019-07-22] MEDS ORDERED: nitroGLYCERIN DRIP* 25,000 MCG/250 ML BTL ONE ×2 (11:49→11:58)
[2019-07-22] MEDS ORDERED: Bivalirudin(*) 250 MG VIAL ONE (11:49)
[2019-07-22] MEDS ORDERED: Adenosine* 3 MG/ML VIAL ONE (12:10)
[2019-07-22] MEDS: Acetaminophen TAB* 325 MG PO PRN ×2 (14:50→21:03)
[2019-07-22] MEDS ORDERED: nitroGLYCERIN DRIP* 25,000 MCG/250 ML BTL IV SCH (15:00)
[2019-07-22] MEDS ORDERED: Midazolam* 1 MG/ML 5 ML VIAL (5 MG) IV SLOW PU ONE (15:03)
--- NOTE | 2019-07-22 15:14 | CATH ---
CC: Dr. Martín Garcia, [facility]; Dr. Martinez, [facility], [facility] * CARDIAC CATHETERIZATION REPORT: - ROOM #[id number] DATE OF PROCEDURE: 07/22/19 INDICATION FOR PROCEDURE: Asked by Dr. Baig to perform coronary arteriography in light of the patient presenting with chest discomfort, abnormal cardiac enzymes suggesting acute coronary syndrome with severe hypertension with a hypertensive cardiomyopathy, concentric in nature, rule out presence of significant coronary artery disease. PROCEDURE: Coronary arteriography, left heart catheterization, left ventriculography, diastolic fractional flow reserve analysis and fractional flow reserve analysis of the ostium of the first diagonal branch. CONSENT: The patient was interviewed and examined on the floor of the hospital with the risks and benefits were explained. She understood them and wished to proceed. PRECARDIAC CATHETERIZATION LABORATORY RESULTS: Hemoglobin and hematocrit of 13.8 and 41; platelet count 301,000; BUN and creatinine of 12 and 0.68. Sodium 136, potassium 3.7, chloride 109, bicarb 22. Troponin 0.2. APPROACH UTILIZED: The right radial artery was assessed by ultrasound and found to be too small for an attempt, especially if intervention was needed to be performed, as such the right groin approach was utilized. EQUIPMENT UTILIZED: 1. Right femoral artery sheath included a 5-Moroccan 11 cm Rachael sheath and a 6.5 Moroccan 11 cm Merit Prelude Sheath. 2. Diagnostic coronary catheters included an FL4 curve 5-Moroccan left coronary catheter. Guiding catheter utilized was a VL 3.5 curved 6-Moroccan guide catheter. 4. The pressure wire utilized was a COMET pressure guidewire by [employer]. MEDICATIONS GIVEN DURING THE PROCEDURE: Included Versed a total of 2 mg, Brilinta 180 mg orally, Angiomax bolus and an Angiomax drip, IC nitroglycerin 100 mcg. A total of 240 mcg of adenosine intracoronary for the analysis. DESCRIPTION OF PROCEDURE: The patient was brought to the cardiovascular laboratory where a formal time-out was performed. She was prepped and draped in a sterile fashion and the right groin area was anesthetized with 1% lidocaine. The right femoral artery was cannulated and the sheath was placed. Coronary arteriography was performed followed by left heart catheterization and left ventriculography was performed utilizing a total of 24 cc of Omnipaque dye at a rate of 12 cc/sec. Following this, the decision was made to assess the ostium of the first diagonal branch after having reviewed the nuclear images from less than 6 months ago, which documented no significant ischemia to the anterolateral wall. The patient received Brilinta 180 mg, Angiomax bolus and Angiomax drip was started in case the stent would be needed to be placed as well as for acute coronary syndrome treatment. The guiding views were obtained after the 5-Moroccan sheath was exchanged for a 6-Moroccan sheath. The COMET wire was advanced across the lesion and a DFR recording was obtained. Following this , the decision was made to perform an FFR analysis and as such the patient received 2 boluses of adenosine; the first being 96 mcg and the second being 144 mcg of adenosine. Following this, the wire was removed. Additional injection was made to assess the patency of the artery, after this the catheter was removed and the sheath was sutured in place and the patient was transported to the intensive care unit where the sheath will be pulled later. The total contrast used was 140 cc of Omnipaque dye. The radiation exposure included 10.4 minutes of fluoro time. The air kerma radiation was 1277 milligray. The DAP radiation was 7784 microgray per meter squared. RESULTS: HEMODYNAMIC DATA: Left heart catheterization revealed central aortic pressure of 176/81 with a mean of 116, left ventricular pressure of 181 with the left ventricular end- diastolic pressure of 20 mmHg. LEFT VENTRICULOGRAPHY: Performed in the CHOI projection revealed symmetrical contraction of left ventricle with no focal wall motion abnormalities. The overall ejection fraction was greater than 70%. There was no significant mitral regurgitation. CORONARY ARTERIOGRAPHY: A. Left coronary artery: 1. Left main: Long in nature with no significant stenosis seen. 2. Left anterior descending artery. The very proximal portion of left anterior descending artery had a 10% to 20% proximal narrowing noted. The first diagonal branch had an ostial narrowing that appeared to be as much as 75 % and appeared to be eccentric in nature (in some views possibly even worse). The rest of the left anterior descending artery tapered at it traversed at the apical region. Of note, the first diagonal branch did parallel the LAD toward the apical lateral region. 3. Circumflex artery - a nondominant vessel supplying a very high first obtuse marginal branch followed by the continuation supplying a very high first obtuse marginal branch, followed by a second obtuse marginal branch supplying the mid posterior wall. There was no significant disease seen throughout the course of those vessels. B. Right coronary artery - a dominant vessel supplying the posterior descending artery and a total of 3 posterior left ventricular branches. There was a mild luminal irregularities noted with a 25% narrowing seen in the mid segment of the right coronary artery. A very small caliber, a second acute marginal branch had an ostial narrowing of 60% to 70% (caliber of this vessel is less than 1.5 mm). PRESSURE WIRE ANALYSIS OF OSTIUM OF THE FIRST DIAGONAL BRANCH: A. DFR analysis - revealed a value of 0.96 consistent with a non- hemodynamically significant lesion. B. Fractional flow reserve (FFR) analysis - revealed a value of 0.83 to 0.84 suggesting a non-hemodynamically significant lesion. OVERALL ASSESSMENT: Findings of single branch vessel disease involving the ostium of a diagonal branch with subsequent pressure wire analysis suggesting the narrowing was not of hemodynamic significance. Of note, this seems to correlate with the nuclear images from prior hospitalization in February 2019 which did not reveal any ischemia to this area. Medical management will be attempted for coronary artery disease with dual antiplatelet therapy for 6 months as well as followed by aspirin 81 mg a day for life, high dose statin therapy. Of note, smoking cession is paramount with respect to her ongoing health and it will be aggressively promoted. Outpatient followup eventually with Dr. Garcia, the patient's primary presentation specialist will be set up. If recurrent symptomatology occurs, consideration for stenting of the ostium of the diagonal branch could be considered; however, this will no doubt lead to compromise of the proximal LAD and most likely solange a dual stent technique. [id number]/[facility] #: [id number] BETO
[2019-07-22] MEDS ORDERED: hydrALAZINE IV* 20 MG/ML VIAL ONE (16:26)
[2019-07-22 17:29] LABS: ABS Basophils 0.1 10^3/ul (0-0.2); ABS Eosinophils 0.1 10^3/ul (0-0.6); ABS Lymphocytes 1.5 10^3/ul (1.0-4.8); ABS Monocytes 0.5 10^3/ul (0-0.8); ABS Neutrophils 7.4 10^3/ul (1.5-7.7); Eosinophil % 1.4 %; Hematocrit 37 % (35-47); Hemoglobin 12.6 g/dL (12.0-16.0); Lymphocyte % 16.1 %; Mean Corpuscular HGB Conc 34 g/dL (31-36); Mean Corpuscular Hemoglobin 31 pg (27-31); Mean Corpuscular Volume 91 fL (80-97); Mean Platelet Volume 6.9 fL (7.4-10.4); Platelet Count 273 10^3/uL (150-450); Red Blood Count 4.07 10^6 /uL (3.70-4.87); Red Cell Distribution Width 14 % (10-15); White Blood Count 9.6 10^3/uL (3.5-10.8)
[2019-07-22] MEDS ORDERED: NS 0.9% 250 ML* 200 ML IV ONE (17:30)
--- NOTE | 2019-07-22 17:50 | PN ---
Subjective Date of Service: 07/22/19 Interval History: 43 y/o F with PMH of HTN, HLD, Obesity and tobacco use presented with chest pain. Found to have NSTEMI; s/p Cardiac catheterization with no stenting. HD 3 on 07/22 No acute overnight events VS stable Patient has no complaint at present. No chest pain, dizziness or palpitation. No nausea, vomiting or abdominal pain Objective Active Medications: Acetaminophen (Tylenol Tab*) 975 mg PO Q6H PRN PRN Reason: PAIN - MILD Last Admin: 07/22/19 14:50 Dose: 975 mg Amlodipine Besylate (Norvasc Tab*) 10 mg PO DAILY [facility] Last Admin: 07/22/19 07:59 Dose: 10 mg Aspirin (Aspirin Ec Tab*) 81 mg PO DAILY [facility] Last Admin: 07/22/19 07:59 Dose: 81 mg Atorvastatin Calcium (Lipitor*) 80 mg PO 1700 [facility] Escitalopram Oxalate (Lexapro *) 10 mg PO BEDTIME [facility] Last Admin: 07/21/19 21:11 Dose: 10 mg Nitroglycerin/Dextrose (Nitroglycerin Drip*) 25,000 mcg in 250 mls @ 1.8 mls/ hr IV Q24H [facility]; Protocol Last Admin: 07/22/19 14:27 Dose: 1.8 mls/hr Losartan Potassium (Cozaar Tab*) 50 mg PO DAILY [facility] Last Admin: 07/22/19 07:59 Dose: 50 mg Metoprolol Tartrate (Lopressor Tab*) 12.5 mg PO BID [facility] Last Admin: 07/22/19 07:59 Dose: 12.5 mg Ticagrelor (Brilinta*) 90 mg PO BID [facility] Vital Signs - 8 hr 07/22/19 07/22/19 07/22/19 10:00 11:00 12:49 Temperature Pulse Rate 49 47 60 Respiratory 20 20 17 Rate Blood Pressure 176/91 (mmHg) O2 Sat by Pulse 94 95 93 Oximetry 07/22/19 07/22/19 07/22/19 12:50 13:00 13:01 Temperature 98.4 F Pulse Rate 49 50 55 Respiratory 22 16 21 Rate Blood Pressure 177/99 177/99 (mmHg) O2 Sat by Pulse 97 96 97 Oximetry 07/22/19 07/22/19 07/22/19 13:16 13:31 13:46 Temperature Pulse Rate 61 57 57 Respiratory 22 19 19 Rate Blood Pressure 184/101 204/94 212/109 (mmHg) O2 Sat by Pulse 99 99 99 Oximetry 07/22/19 07/22/19 07/22/19 14:00 14:01 14:30 Temperature Pulse Rate 62 54 66 Respiratory 15 26 19 Rate Blood Pressure 197/96 197/112 (mmHg) O2 Sat by Pulse 98 99 98 Oximetry 07/22/19 07/22/19 07/22/19 15:00 15:30 16:00 Temperature 97.8 F Pulse Rate 66 65 76 Respiratory 20 25 18 Rate Blood Pressure 171/93 142/81 132/73 (mmHg) O2 Sat by Pulse 96 97 95 Oximetry 07/22/19 07/22/19 07/22/19 16:27 16:31 16:34 Temperature Pulse Rate 70 58 62 Respiratory 14 20 20 Rate Blood Pressure 132/82 153/84 156/76 (mmHg) O2 Sat by Pulse 96 97 96 Oximetry 07/22/19 07/22/19 07/22/19 16:46 16:56 16:59 Temperature Pulse Rate 66 57 56 Respiratory 20 21 20 Rate Blood Pressure 123/69 94/51 102/60 (mmHg) O2 Sat by Pulse 96 96 95 Oximetry 07/22/19 07/22/19 07/22/19 17:00 17:02 17:05 Temperature Pulse Rate 56 57 62 Respiratory 19 18 14 Rate Blood Pressure 107/69 136/81 (mmHg) O2 Sat by Pulse 98 98 100 Oximetry 07/22/19 07/22/19 17:10 17:15 Temperature Pulse Rate 55 69 Respiratory 19 21 Rate Blood Pressure 126/75 121/78 (mmHg) O2 Sat by Pulse 98 99 Oximetry Oxygen Devices in Use Now: None Exam: Patient is lying on a bed with no acute distress HEENT: Normocephalic and atraumatic Lungs; clear with no added sound Heart: S1/S2 heard with no murmur Abdomen: Soft, nondistended and nontender, NOrmal BS heard extremities: No swelling Neuro: Alert, conscious and oriented Result Diagrams: 07/22/19 17:20 07/21/19 05:00 Additional Lab and Data: Lab Results 07/20/19 07/20/19 Range/Units 17:21 17:21 WBC 11.1 H (3.5-10.8) 10^3/uL RBC 5.05 H (3.70-4.87) 10^6 /uL Hgb 15.8 (12.0-16.0) g/dL Hct 46 (35-47) % MCV 91 (80-97) fL MCH 31 (27-31) pg MCHC 34 (31-36) g/dL RDW 15 (10-15) % Plt Count 328 (150-450) 10^3/uL MPV 6.7 L (7.4-10.4) fL Neut % (Auto) 74.8 % Lymph % (Auto) 17.0 % [place] % (Auto) 5.1 % Eos % (Auto) 2.2 % Baso % (Auto) 0.9 % Absolute Neuts (auto) 8.3 H (1.5-7.7) 10^3/ul Absolute Lymphs (auto) 1.9 (1.0-4.8) 10^3/ul Absolute Monos (auto) 0.6 (0-0.8) 10^3/ul Absolute Eos (auto) 0.2 (0-0.6) 10^3/ul Absolute Basos (auto) 0.1 (0-0.2) 10^3/ul Absolute Nucleated RBC 0.0 10^3/ul Nucleated RBC % 0.0 INR (Anticoag Therapy) 0.92 (0.82-1.09) Assess/Plan/Problems-Billing Assessment: This is a 43 year old woman with history of HTN, chest pain with an abnormal stress test in February treated medically, tobacco use, and positive family history of early cardiac disease, who presented to the ED on 07/20 after having chest pain at rest x 3. Foound to have NSTEMI. s/p cardiac cath without stenting - Patient Problems (1) NSTEMI (non-ST elevated myocardial infarction) Current Visit: Yes Status: Acute Code(s): I21.4 - NON-ST ELEVATION (NSTEMI) MYOCARDIAL INFARCTION SNOMED Code(s): 88194557 Comment: -St depression with elevated trop - s/p cardiac cath -on aspirin and brilinta -atorvastatin 80 mg -will follow up with Dr. Garcia as an outpatient (2) Hypertension Current Visit: No Status: Acute Code(s): I10 - ESSENTIAL (PRIMARY) HYPERTENSION SNOMED Code(s): 66554567 Comment: -severe hypertension after cardiac cath -tranferred to ICU for nitro drip (3) Left ventricular hypertrophy Current Visit: No Status: Acute Code(s): I51.7 - CARDIOMEGALY SNOMED Code( s): 52363125 Comment: -EF of 65-70% -cardiac cath didnot show significant stenosis -so sould be LVH - on bb (4) Social anxiety disorder Current Visit: No Status: Acute Code(s): F40.10 - SOCIAL PHOBIA, UNSPECIFIED SNOMED Code(s): 94564512 Comment: -on lexapro (5) Tobacco abuse Current Visit: No Status: Acute Code(s): Z72.0 - TOBACCO USE SNOMED Code(s ): 840058825 Comment: nicotine replacement as needed (6) DVT prophylaxis Current Visit: Yes Status: Acute Code(s): Z29.9 - ENCOUNTER FOR PROPHYLACTIC MEASURES, UNSPECIFIED SNOMED Code(s): 743495593 (7) Full code status Current Visit: Yes Status: Acute Code(s): Z78.9 - OTHER SPECIFIED HEALTH STATUS SNOMED Code(s): 485184369 Status and Disposition: ICU Attending: Shon Richards Attestation Documenting Resident: Javier Hamm Supervising Physician: Shon Richards Attending/Supervising Physician Comment: Agree with note here by Dr. Hamm unless indicated. Please note pt transferred to ICU s/p cath until sheath pulled and because hypertension requiring nitro gtt. I assumed full care of the patient on transfer to the ICU. Hypertension - weaning nitro gtt currently. Right leg hematomma - Developed hematoma after pulling sheath. Pressure held. Area demarcated. Discussed with Dr. Arceo. Holding brilinta until tomorrow. LVOT - may contribute to presenting symptoms and elevated troponin. Would benefit from increased beta blockade. However, will not increase in setting of sheath hematoma. Resting bradycardia may also limit ability to increase metoprolol. SW - connor of brilinta needs to be confirmed prior to discharge Attestation: This service has been performed in part by a resident under the direction of a teaching physician.I, Shon Richards, performed the service, or was physically present during the critical, or ferrer portions of the service, furnished by the resident. I participated in the management of the patient.
[2019-07-22] MEDS ORDERED: NS 0.9% 500 ML* 400 ML IV SCH (18:00)
[2019-07-22] MEDS: Atorvastatin* 80 MG TAB PO SCH (18:24)
[2019-07-22] MEDS ORDERED: NS 0.9% 250 ML* 250 ML IV ONE (18:30)
[2019-07-22] MEDS: NS 0.9% 1000 ML** 1,000 ML IV SCH (19:11)
[2019-07-22] MEDS ORDERED: Lorazepam PYXIS KEY PRN (20:17)
[2019-07-22] MEDS ORDERED: Ticagrelor* 90 MG TAB PO SCH (21:00)
[2019-07-22] MEDS: LORazepam INJ* 2 MG/ML 1 ML VIAL IV PUSH PRN (21:04)
[2019-07-22] MEDS: Escitalopram * 10 MG TAB PO SCH (21:10)
[2019-07-22 22:34] LABS: ABS Basophils 0.1 10^3/ul (0-0.2); ABS Lymphocytes 0.9 10^3/ul (1.0-4.8); ABS Monocytes 0.5 10^3/ul (0-0.8); ABS Neutrophils 10.1 10^3/ul (1.5-7.7); Eosinophil % 0.3 %; Hematocrit 36 % (35-47); Hemoglobin 12.1 g/dL (12.0-16.0); Mean Corpuscular HGB Conc 34 g/dL (31-36); Mean Corpuscular Hemoglobin 31 pg (27-31); Mean Corpuscular Volume 92 fL (80-97); Mean Platelet Volume 7.3 fL (7.4-10.4); Platelet Count 314 10^3/uL (150-450); Red Blood Count 3.89 10^6 /uL (3.70-4.87); Red Cell Distribution Width 15 % (10-15); White Blood Count 11.6 10^3/uL (3.5-10.8)
[2019-07-23] MEDS ORDERED: Morphine INJ* 2 MG/ML 1 ML SYRINGE (TWO MG - NEW SYRINGE VERSION) IV ONE (01:05)
[2019-07-23] MEDS: NS 0.9% 1000 ML** 1,000 ML IV SCH (01:13)
[2019-07-23] MEDS: LORazepam INJ* 2 MG/ML 1 ML VIAL IV PUSH PRN ×2 (05:52→22:20)
[2019-07-23 06:50] LABS: ABS Eosinophils 0.1 10^3/ul (0-0.6); ABS Lymphocytes 1.8 10^3/ul (1.0-4.8); ABS Monocytes 0.7 10^3/ul (0-0.8); ABS Neutrophils 9.4 10^3/ul (1.5-7.7); Eosinophil % 0.6 %; Hematocrit 34 % (35-47); Hemoglobin 11.8 g/dL (12.0-16.0); Lymphocyte % 14.7 %; Mean Corpuscular HGB Conc 34 g/dL (31-36); Mean Corpuscular Hemoglobin 32 pg (27-31); Mean Corpuscular Volume 92 fL (80-97); Mean Platelet Volume 7.3 fL (7.4-10.4); Platelet Count 310 10^3/uL (150-450); Red Blood Count 3.75 10^6 /uL (3.70-4.87); Red Cell Distribution Width 14 % (10-15)
[2019-07-23 06:57] LABS: BUN/Creatinine Ratio 13.1 (8-20); Calcium 8.2 mg/dL (8.6-10.3); EGFR African American 130.8 (>60); EGFR Non-African American 108.1 (>60); Potassium 3.7 mmol/L (3.5-5.0)
[2019-07-23] MEDS: Losartan TAB* 25 MG PO SCH (07:49)
[2019-07-23] MEDS: amLODIPine TAB* 5 MG PO SCH (07:49)
[2019-07-23] MEDS: Metoprolol Tartrate TAB* 25 MG PO SCH ×3 (07:50→22:10)
[2019-07-23] MEDS: Aspirin EC TAB* 81 MG TAB.EC PO SCH (07:50)
[2019-07-23] MEDS ORDERED: Ticagrelor* 90 MG TAB PO SCH (09:00)
[2019-07-23] MEDS ORDERED: Metoprolol Tartrate TAB* 25 MG PO ONE (14:30)
--- NOTE | 2019-07-23 17:11 | PN ---
Subjective Date of Service: 07/23/19 Interval History: Difficult night sleeping right leg still painful but much improved no chest pain This AM had not yet been OOB and walking Objective Active Medications: Acetaminophen (Tylenol Tab*) 975 mg PO Q6H PRN PRN Reason: PAIN - MILD Last Admin: 07/22/19 21:03 Dose: 975 mg Aspirin (Aspirin Ec Tab*) 81 mg PO DAILY [facility] Last Admin: 07/23/19 07:50 Dose: Not Given Atorvastatin Calcium (Lipitor*) 80 mg PO 1700 [facility] Last Admin: 07/22/19 18:24 Dose: 80 mg Escitalopram Oxalate (Lexapro *) 10 mg PO BEDTIME [facility] Last Admin: 07/22/19 21:10 Dose: 10 mg Lorazepam (Ativan Inj*) 0.5 mg IV PUSH Q4H PRN PRN Reason: ANXIETY Last Admin: 07/23/19 05:52 Dose: 0.5 mg Metoprolol Tartrate (Lopressor Tab*) 25 mg PO BID [facility] Miscellaneous (Ativan Pyxis Resendiz) 1 ea N/A .ATIVAN IV RESENDIZ PRN PRN Reason: PYXIS RESENDIZ Vital Signs - 8 hr 07/23/19 07/23/19 07/23/19 09:30 10:00 10:01 Temperature Pulse Rate 62 63 91 Respiratory 14 17 18 Rate Blood Pressure 158/77 114/67 (mmHg) O2 Sat by Pulse 98 94 99 Oximetry 07/23/19 07/23/19 07/23/19 10:31 11:00 11:01 Temperature Pulse Rate 95 59 63 Respiratory 22 17 12 Rate Blood Pressure 141/83 117/82 (mmHg) O2 Sat by Pulse 98 96 96 Oximetry 07/23/19 07/23/19 07/23/19 11:31 11:52 12:00 Temperature 97.7 F Pulse Rate 60 57 Respiratory 18 17 Rate Blood Pressure 125/75 (mmHg) O2 Sat by Pulse 96 94 Oximetry 07/23/19 07/23/19 07/23/19 12:01 12:31 13:00 Temperature Pulse Rate 53 54 57 Respiratory 20 17 19 Rate Blood Pressure 109/45 104/49 (mmHg) O2 Sat by Pulse 95 95 95 Oximetry 07/23/19 07/23/19 07/23/19 13:01 13:30 14:00 Temperature Pulse Rate 59 79 73 Respiratory 18 22 18 Rate Blood Pressure 111/62 143/96 (mmHg) O2 Sat by Pulse 95 97 97 Oximetry 07/23/19 07/23/19 07/23/19 14:01 14:31 15:00 Temperature Pulse Rate 74 70 60 Respiratory 20 19 19 Rate Blood Pressure 126/81 129/74 (mmHg) O2 Sat by Pulse 96 98 96 Oximetry 07/23/19 15:01 Temperature Pulse Rate 68 Respiratory 18 Rate Blood Pressure 119/66 (mmHg) O2 Sat by Pulse 96 Oximetry Oxygen Devices in Use Now: None Appearance: NAD Eyes: No Scleral Icterus, PERRLA Ears/Nose/Mouth/Throat: NL Teeth, Lips, Gums, Clear Oropharnyx Neck: NL Appearance and Movements; NL JVP, Trachea Midline Respiratory: Symmetrical Chest Expansion and Respiratory Effort, Clear to Auscultation Cardiovascular: NL Sounds; No Murmurs; No JVD, RRR Abdominal: NL Sounds; No Tenderness; No Distention, No Hepatosplenomegaly Extremities: - - right groin hematoma well within area of demarcation, no bruits Neurological: Alert and Oriented x 3 Result Diagrams: 07/23/19 05:40 07/23/19 05:40 Additional Lab and Data: Lab Results 07/20/19 07/20/19 Range/Units 17:21 17:21 WBC 11.1 H (3.5-10.8) 10^3/uL RBC 5.05 H (3.70-4.87) 10^6 /uL Hgb 15.8 (12.0-16.0) g/dL Hct 46 (35-47) % MCV 91 (80-97) fL MCH 31 (27-31) pg MCHC 34 (31-36) g/dL RDW 15 (10-15) % Plt Count 328 (150-450) 10^3/uL MPV 6.7 L (7.4-10.4) fL Neut % (Auto) 74.8 % Lymph % (Auto) 17.0 % [place] % (Auto) 5.1 % Eos % (Auto) 2.2 % Baso % (Auto) 0.9 % Absolute Neuts (auto) 8.3 H (1.5-7.7) 10^3/ul Absolute Lymphs (auto) 1.9 (1.0-4.8) 10^3/ul Absolute Monos (auto) 0.6 (0-0.8) 10^3/ul Absolute Eos (auto) 0.2 (0-0.6) 10^3/ul Absolute Basos (auto) 0.1 (0-0.2) 10^3/ul Absolute Nucleated RBC 0.0 10^3/ul Nucleated RBC % 0.0 INR (Anticoag Therapy) 0.92 (0.82-1.09) Assess/Plan/Problems-Billing Assessment: This is a 43 year old woman with history of HTN, chest pain with an abnormal stress test in February treated medically, tobacco use, and positive family history of early cardiac disease, who presented to the ED on 07/20 after having chest pain at rest x 3. Found to have NSTEMI s/p cardiac cath without stenting - Patient Problems (1) NSTEMI (non-ST elevated myocardial infarction) Current Visit: Yes Status: Acute Code(s): I21.4 - NON-ST ELEVATION (NSTEMI) MYOCARDIAL INFARCTION SNOMED Code(s): 74466908 Comment: -St depression with elevated trop - s/p cardiac cath without obstructive CAD -cath complicated by right thigh hematoma on sheath removal -on aspirin -holding brilinta in setting of hematoma. Restart tomorrow -atorvastatin 80 mg -will follow up with Dr. Garcia as an outpatient (2) Left ventricular hypertrophy Comment: -LVOT with increased velocites -increase metoprolol from 12.5mg BID to 25mg BID -maintain telemetry -holding losartan and norvasc. -EF of 65-70% (3) Hypertension Comment: -severe hypertension after cardiac cath -tranferred to ICU for nitro drip now stopped -beta stephanie. Norvasc and losartan on hold (4) Social anxiety disorder Comment: -on lexapro (5) Tobacco abuse Comment: nicotine replacement as needed (6) DVT prophylaxis Comment: scd s/p hematoma (7) Full code status Code(s): Z78.9 - OTHER SPECIFIED HEALTH STATUS SNOMED Code(s): 723513187 Status and Disposition: transfer to
[2019-07-23] MEDS: Atorvastatin* 80 MG TAB PO SCH (17:21)
[2019-07-23] MEDS: Escitalopram * 10 MG TAB PO SCH (22:10)
[2019-07-23] MEDS: Acetaminophen TAB* 325 MG PO PRN (22:10)
[2019-07-24] MEDS: Aspirin EC TAB* 81 MG TAB.EC PO SCH (10:52)
[2019-07-24] MEDS: Metoprolol Tartrate TAB* 25 MG PO SCH (10:52)
[2019-07-24 12:55] VITALS: BP 140/68
--- NOTE | 2019-07-24 21:49 | DS ---
CC: Dr. Martinez; Dr. Lowe; Dr. Garcia * DISCHARGE SUMMARY: DATE OF ADMISSION: 07/20/19 DATE OF DISCHARGE: 07/24/19 PRIMARY CARE PROVIDER: Dr. Martinez. DISPOSITION ON DISCHARGE: Home. CONDITION ON DISCHARGE: Good. PRIMARY DIAGNOSES: 1. Non-ST segment elevation myocardial infarction. 2. Left ventricular outflow obstruction. 3. Right groin hematoma. SECONDARY DIAGNOSES: Include: 1. Prediabetes, hemoglobin A1c is 6.0. 2. Tobacco abuse. 3. Dyslipidemia. MEDICATIONS ON DISCHARGE: Include: 1. Aspirin 81 mg daily. 2. Lexapro 10 mg at bedtime. 3. Atorvastatin 20 mg in the evening. 4. Metoprolol tartrate 25 mg twice daily. Please note the increased dose of metoprolol tartrate, discontinuation of other antihypertensive medications. PERTINENT LABORATORY DATA: Troponin peak during hospital stay, 0.19. PROCEDURES PERFORMED DURING HOSPITAL STAY: Cardiac catheterization with Dr. Lowe on 07/22/19. Overall assessment, a single branch vessel disease to the ostium of the diagonal branch with subsequent pressure wire analysis suggesting narrowing, but not hemodynamically significant. If recurrent symptoms, there will be consideration for stenting of the ostium of the diagonal branch, however , understands this could lead to compromise of the proximal LAD. Transthoracic echocardiogram, left ventricle systolic function has hyperdynamic. Estimated EF 65% to 70%. Turbulence, increased velocities with a dagger profile in the left ventricle and left ventricular outflow tract at the septum up to a velocity of 2.3 meters per second. Trace MR, trace TR. HISTORY OF PRESENT ILLNESS AND HOSPITAL COURSE: This is a 43-year-old female with past medical history as outlined in the history of present illness on the day of admission including hypertension, tobacco use, dyslipidemia, presented with chest pain on sitting up recently, interpreted abnormal stress, and elevated troponin, proceeded to cardiac catheterization with findings as indicated above with single- vessel disease involving the ostium of the diagonal branch. Flow measurements during the cardiac catheterization did not indicate hemodynamically significant compromise using DFR. No intervention was performed. The patient was brought to the ICU where she briefly needed nitroglycerin drip to control post procedure hypertension. The patient did develop a right femoral hematoma after removal of the sheath. There is no significant blood loss as indicated by hemoglobin, which remained stable. Imaging of the vessel did not indicate any bruit or fistula develop after the bleeding event. In the setting of her left ventricular outflow obstructions , it was thought that her symptoms may have been in the setting of demand with impaired diastolic filling. For this reason, her other antihypertensives were discontinued and her beta-stephanie was increased. She did not receive dual antiplatelet therapy on discharge secondary to acute blood loss from the right groin hematoma after sheath removal. There are no other complications during her hospital stay. At followup, please; 1. Uptitrate metoprolol as capable. 2. Add back other antihypertensive agents as needed. 3. Evaluate right groin for continued stability of hematoma. 4. Continue to encourage smoking cessation. 5. No other specific labs or vitals that need followup. Reasons to return to the hospital including, but are not limited to, recurrent or worsening symptoms, chest pain, shortness of breath, nausea, vomiting, lightheadedness, loss of consciousness or near loss of consciousness, bleeding from any source, worsening bruising and/or swelling in her right lower extremity. Discussed at length with the patient. Additionally tobacco cessation counseling was given for approximately 30 minutes. TIME SPENT: Greater than 60 minutes was spent on discharge of this patient, greater than half was spent [id number] with the patient in addition to her tobacco cessation counseling. [id number]/[facility] #: [id number] BETO
== END 2019-07-24 13:55 | disposition home or self-care (01) | DRG 190 ==
LOC: ED 16:50 → MEDTELE 22:36 → ICU 07-22 12:31 → MEDTELE 07-23 14:27
PROVIDERS: ADMIT Internal Medicine; ATTEND Internal Medicine
PROC: B211YZZ Fluoroscopy of Multiple Coronary Arteries using Other Contrast (ICD-10-PCS; 2019-07-22)
PROC: 4A033BC Measurement of Arterial Pressure, Coronary, Percutaneous Approach (ICD-10-PCS; 2019-07-22)
PROC: 4A023N7 Measurement of Cardiac Sampling and Pressure, Left Heart, Percutaneous Approach (ICD-10-PCS; principal; 2019-07-22 11:00)
DX: I21.4 Non-ST elevation (NSTEMI) myocardial infarction (principal); Q21.3 Tetralogy of Fallot; L76.32 Postprocedural hematoma of skin and subcutaneous tissue following other procedure; I11.9 Hypertensive heart disease without heart failure; E78.5 Hyperlipidemia, unspecified; F41.8 Other specified anxiety disorders; K21.9 Gastro-esophageal reflux disease without esophagitis; I25.10 Atherosclerotic heart disease of native coronary artery without angina pectoris; J45.909 Unspecified asthma, uncomplicated; E66.01 Morbid (severe) obesity due to excess calories; F32.9 Major depressive disorder, single episode, unspecified; R73.03 Prediabetes; F40.10 Social phobia, unspecified; Z72.0 Tobacco use; Z79.82 Long term (current) use of aspirin; Z79.899 Other long term (current) drug therapy; Z88.8 Allergy status to other drugs, medicaments and biological substances; Z82.49 Family history of ischemic heart disease and other diseases of the circulatory system; Z68.36 Body mass index [BMI] 36.0-36.9, adult
CPT/HCPCS: 36415; 71046; 76937; 80048; 80053; 80061; 83036; 84443; 84484; 85025; 85347; 85610; 86850; 86900; 86901; 93005; 93306; 93458; 93880; 96372; 99156; 99157; 99285; A9270-GY; C1769; C1887; J0153; J0360; J0583; J1644; J1650; J2060; J2250; J2270; J3010

== ENCOUNTER 2021-03-22 11:16 | Inpatient (IN) ==
[2021-03-22] MEDS ORDERED: Heparin - STEMI 5,000 UNITS/ML 1 ml VIAL IV ONE (11:25)
[2021-03-22] MEDS ORDERED: nitroGLYCERIN DRIP 0 MCG/0 ML BTL ONE (11:29)
[2021-03-22] MEDS ORDERED: Heparin 2 UNITS/ML 1000 mls 0 ML IV ONE (11:29)
[2021-03-22] MEDS ORDERED: Heparin 1,000 UNIT/ML 10 ml (10,000 UNITS) CATHLAB/DIALYSIS ONE (11:29)
[2021-03-22] MEDS ORDERED: VERAPAMIL 2.5 MG/ML 2 ML VIAL ** 5 mg/2 ml ONE (11:29)
[2021-03-22] MEDS ORDERED: fentaNYL 100 mcg/2 ml 50 MCG/ML VIAL ONE (11:29)
[2021-03-22] MEDS ORDERED: Midazolam 5 mg/5 ml VIAL 1 mg/ml 5 ml VIAL (5 mg) ONE (11:29)
[2021-03-22] MEDS ORDERED: Iohexol 350 (CONTRAST) 200 ML MDV IV ONE (11:30)
[2021-03-22] MEDS ORDERED: Lidocaine 1% VIAL 10 MG/ML VIAL ONE (11:30)
[2021-03-22 11:38] LABS: ABS Basophils 0.2 10^3/ul (0-0.2); ABS Eosinophils 0.1 10^3/ul (0-0.6); ABS Lymphocytes 2.7 10^3/ul (1.0-4.8); ABS Monocytes 0.9 10^3/ul (0-0.8); Eosinophil % 0.6 %; Hematocrit 47 % (35-47); Hemoglobin 15.5 g/dL (12.0-16.0); Lymphocyte % 17.1 %; Mean Corpuscular HGB Conc 33 g/dL (31-36); Mean Corpuscular Hemoglobin 27 pg (27-31); Mean Corpuscular Volume 82 fL (80-97); Mean Platelet Volume 6.8 fL (7.4-10.4); Platelet Count 420 10^3/uL (150-450); Red Blood Count 5.77 10^6 /uL (3.70-4.87); Red Cell Distribution Width 17 % (10-15)
[2021-03-22] MEDS ORDERED: Nitro 2% OINT (Nitroglycerin) 1 INCH/PAK TOPICAL ONE (11:46)
[2021-03-22 11:53] LABS: INR 1.03 (0.86-1.15)
[2021-03-22 12:01] LABS: ALT 21 U/L (7-52); AST 25 U/L (13-39); Albumin 4.1 g/dL (3.2-5.2); Albumin/Globulin Ratio 1.1 (1-3); Alkaline Phosphatase 91 U/L (35-149); Anion Gap 12 mmol/L (2-11); Blood Urea Nitrogen 7 mg/dL (6-24); CO2 Carbon Dioxide 23 mmol/L (22-32); Calcium 9.2 mg/dL (8.6-10.3); Chloride 99 mmol/L (101-111); EGFR African American 97.5 (>60); EGFR Non-African American 80.6 (>60); Globulin 3.6 g/dL (2-4); Glucose 150 mg/dL (70-100); Potassium 3.5 mmol/L (3.5-5.0); Sodium 134 mmol/L (135-145); Total Protein 7.7 g/dL (6.4-8.9)
[2021-03-22 12:07] LABS: Troponin I 0.34 ng/mL (<0.03)
[2021-03-22] MEDS ORDERED: Heparin DRIP 25,000 UNITS BAG 25,000 UNITS/500 ML BAG IV SCH ×2 (12:45→13:30)
[2021-03-22] MEDS ORDERED: Heparin 5000 UNITS/ML 1 mL VIAL IV SCH (13:00)
[2021-03-22] MEDS ORDERED: Ondansetron 4 mg VIAL 2 MG/ML 2 ml VIAL IV PRN (13:17)
[2021-03-22 13:46] LABS: Activated Partial Thrombo Time 30.3 seconds (26.0-38.0)
[2021-03-22 13:59] LABS: Magnesium 1.8 mg/dL (1.9-2.7)
[2021-03-22 14:05] LABS: Cholesterol 182 mg/dL; HDL Cholesterol 43.2 mg/dL; LDL Cholesterol 111 mg/dL; Triglycerides 139 mg/dL
[2021-03-22 14:50] LABS: ABS Basophils 0.1 10^3/ul (0-0.2); ABS Eosinophils 0.1 10^3/ul (0-0.6); ABS Lymphocytes 1.9 10^3/ul (1.0-4.8); ABS Monocytes 0.7 10^3/ul (0-0.8); ABS Neutrophils 9.7 10^3/ul (1.5-7.7); Eosinophil % 0.9 %; Hematocrit 42 % (35-47); Hemoglobin 13.7 g/dL (12.0-16.0); Mean Corpuscular HGB Conc 33 g/dL (31-36); Mean Corpuscular Hemoglobin 27 pg (27-31); Mean Corpuscular Volume 83 fL (80-97); Mean Platelet Volume 6.8 fL (7.4-10.4); Platelet Count 350 10^3/uL (150-450); Red Blood Count 5.06 10^6 /uL (3.70-4.87); Red Cell Distribution Width 17 % (10-15); White Blood Count 12.5 10^3/uL (3.5-10.8)
[2021-03-22 14:52] LABS: Troponin I 1.35 ng/mL (<0.03)
[2021-03-22 14:56] LABS: EGFR African American 96.1 (>60); EGFR Non-African American 79.4 (>60)
[2021-03-22] MEDS: niCARdipine 0.1MG/ML IVPREMIX 20 MG/200 ML BAG IV SCH ×2 (16:12→22:39)
[2021-03-22] MEDS ORDERED: Potassium Chloride LIQUID 20 MEQ/15 ML LIQUID PO ONE (16:20)
[2021-03-22] MEDS ORDERED: Magnesium Sulfate 2 gm BAG 2 GM/50 ML BAG IVPB ONE (16:20)
[2021-03-22 20:10] LABS: Troponin I 3.98 ng/mL (<0.03)
[2021-03-22] MEDS: Heparin 5000 UNITS/ML 1 mL VIAL IV SCH (20:23)
[2021-03-22] MEDS: Nicotine GUM 2MG FRUIT FLAVOR PO PRN (20:25)
[2021-03-23] MEDS ORDERED: NS 0.9% 1000 ml BAG 1,000 ML IV SCH
[2021-03-23] MEDS: Heparin 5000 UNITS/ML 1 mL VIAL IV SCH ×2 (02:53→16:21)
[2021-03-23 05:08] LABS: ABS Basophils 0.1 10^3/ul (0-0.2); ABS Eosinophils 0.2 10^3/ul (0-0.6); ABS Lymphocytes 1.9 10^3/ul (1.0-4.8); ABS Monocytes 0.5 10^3/ul (0-0.8); Eosinophil % 2.5 %; Hematocrit 38 % (35-47); Hemoglobin 12.9 g/dL (12.0-16.0); Lymphocyte % 19.8 %; Mean Corpuscular HGB Conc 34 g/dL (31-36); Mean Corpuscular Hemoglobin 28 pg (27-31); Mean Corpuscular Volume 81 fL (80-97); Nucleated Red Blood Cells % 0.1; Platelet Count 288 10^3/uL (150-450); Red Blood Count 4.71 10^6 /uL (3.70-4.87); Red Cell Distribution Width 17 % (10-15); White Blood Count 9.8 10^3/uL (3.5-10.8)
[2021-03-23 05:39] LABS: Anion Gap 6 mmol/L (2-11); Blood Urea Nitrogen 6 mg/dL (6-24); CO2 Carbon Dioxide 24 mmol/L (22-32); Calcium 8.1 mg/dL (8.6-10.3); Chloride 103 mmol/L (101-111); EGFR African American 120.4 (>60); EGFR Non-African American 99.5 (>60); Glucose 133 mg/dL (70-100); Potassium 3.5 mmol/L (3.5-5.0); Sodium 133 mmol/L (135-145)
[2021-03-23 05:45] LABS: Troponin I 1.51 ng/mL (<0.03)
[2021-03-23] MEDS: KCL 20 MEQ/100 ML IVPREMIX 20 MEQ/100 ML BAG IV SCH ×2 (08:09→10:24)
[2021-03-23] MEDS: Aspirin EC 81 mg TAB.EC (enteric coated) PO SCH (10:12)
[2021-03-23] MEDS: Heparin DRIP 25,000 UNITS BAG 25,000 UNITS/500 ML BAG IV SCH ×2 (10:27→23:57)
[2021-03-23] MEDS: Nicotine GUM 2MG FRUIT FLAVOR PO PRN (17:24)
[2021-03-23] MEDS ORDERED: hydrALAZINE 20 mg/ml 1 ML Vial IV IV SLOW PU PRN (17:31)
[2021-03-24 05:44] LABS: ABS Basophils 0.1 10^3/ul (0-0.2); ABS Eosinophils 0.2 10^3/ul (0-0.6); ABS Lymphocytes 1.7 10^3/ul (1.0-4.8); ABS Monocytes 0.5 10^3/ul (0-0.8); ABS Neutrophils 5.1 10^3/ul (1.5-7.7); Eosinophil % 2.2 %; Hematocrit 38 % (35-47); Hemoglobin 12.7 g/dL (12.0-16.0); Lymphocyte % 22.3 %; Mean Corpuscular HGB Conc 34 g/dL (31-36); Mean Corpuscular Hemoglobin 28 pg (27-31); Mean Corpuscular Volume 83 fL (80-97); Mean Platelet Volume 7.3 fL (7.4-10.4); Platelet Count 244 10^3/uL (150-450); Red Cell Distribution Width 17 % (10-15); White Blood Count 7.4 10^3/uL (3.5-10.8)
[2021-03-24 06:03] LABS: EGFR Non-African American 109.1 (>60)
[2021-03-24 07:51] LABS: Potassium 3.5 mmol/L (3.5-5.0)
[2021-03-24] MEDS: Aspirin EC 81 mg TAB.EC (enteric coated) PO SCH (08:56)
[2021-03-24] MEDS: Heparin 5000 UNITS/ML 1 mL VIAL SUBCUT SCH ×2 (09:59→23:00)
[2021-03-24] MEDS: Nicotine GUM 2MG FRUIT FLAVOR PO PRN (11:32)
[2021-03-24] MEDS: Nitroglycerin 0.4 mg/hr PATCH (10 mg) TRANSDERM SCH (13:48)
[2021-03-24] MEDS: Nitro Patch/OINT Remove PATCH TOPICAL SCH (21:00)
[2021-03-25] MEDS: Heparin 5000 UNITS/ML 1 mL VIAL SUBCUT SCH ×2 (08:40→21:18)
[2021-03-25] MEDS: Nitroglycerin 0.4 mg/hr PATCH (10 mg) TRANSDERM SCH (08:40)
[2021-03-25] MEDS: Aspirin EC 81 mg TAB.EC (enteric coated) PO SCH (08:40)
[2021-03-25] MEDS ORDERED: Nitroglycerin 0.4 mg/hr PATCH (10 mg) TRANSDERM SCH (09:00)
[2021-03-25] MEDS: Nitro Patch/OINT Remove PATCH TOPICAL SCH (10:02)
[2021-03-25 10:03] LABS: Calcium 8.8 mg/dL (8.6-10.3); EGFR African American 120.4 (>60); EGFR Non-African American 99.5 (>60); Potassium 3.7 mmol/L (3.5-5.0)
[2021-03-25 10:15] LABS: Hematocrit 41 % (35-47); Hemoglobin 13.4 g/dL (12.0-16.0); Mean Corpuscular HGB Conc 33 g/dL (31-36); Mean Corpuscular Hemoglobin 27 pg (27-31); Mean Corpuscular Volume 83 fL (80-97); Mean Platelet Volume 7.2 fL (7.4-10.4); Platelet Count 271 10^3/uL (150-450); Red Blood Count 4.94 10^6 /uL (3.70-4.87); Red Cell Distribution Width 17 % (10-15); White Blood Count 8.5 10^3/uL (3.5-10.8)
[2021-03-26] MEDS: Heparin 5000 UNITS/ML 1 mL VIAL SUBCUT SCH ×2 (06:02→15:24)
[2021-03-26] MEDS ORDERED: Regadenoson 0.4 MG/5 ML SYRINGE ONE (08:05)
[2021-03-26] MEDS ORDERED: Aminophylline 25 MG/ML VIAL ONE (08:05)
[2021-03-26 08:58] LABS: ABS Basophils 0.1 10^3/ul (0-0.2); ABS Eosinophils 0.1 10^3/ul (0-0.6); ABS Lymphocytes 1.3 10^3/ul (1.0-4.8); ABS Monocytes 0.6 10^3/ul (0-0.8); ABS Neutrophils 5.9 10^3/ul (1.5-7.7); Eosinophil % 1.7 %; Hematocrit 40 % (35-47); Hemoglobin 13.6 g/dL (12.0-16.0); Lymphocyte % 16.7 %; Mean Corpuscular HGB Conc 34 g/dL (31-36); Mean Corpuscular Hemoglobin 28 pg (27-31); Mean Corpuscular Volume 82 fL (80-97); Mean Platelet Volume 7.3 fL (7.4-10.4); Platelet Count 269 10^3/uL (150-450); Red Blood Count 4.89 10^6 /uL (3.70-4.87); Red Cell Distribution Width 17 % (10-15)
[2021-03-26 09:15] LABS: Anion Gap 7 mmol/L (2-11); Blood Urea Nitrogen 7 mg/dL (6-24); CO2 Carbon Dioxide 24 mmol/L (22-32); Calcium 8.9 mg/dL (8.6-10.3); Chloride 102 mmol/L (101-111); EGFR African American 112.4 (>60); EGFR Non-African American 92.9 (>60); Glucose 156 mg/dL (70-100); Magnesium 1.9 mg/dL (1.9-2.7); Potassium 3.9 mmol/L (3.5-5.0); Sodium 133 mmol/L (135-145)
[2021-03-26] MEDS: Aspirin EC 81 mg TAB.EC (enteric coated) PO SCH (10:33)
[2021-03-26 11:27] VITALS: BP 166/88
[2021-03-26 15:14] LABS: HCG Pregnancy < 0.60 mIU/mL
== END 2021-03-26 15:45 | disposition home or self-care (01) | DRG 190 ==
LOC: ED 11:16 → ICU 14:33 → MEDTELE 03-24 18:27
PROVIDERS: ADMIT Internal Medicine; ATTEND Internal Medicine

== ENCOUNTER 2021-05-18 06:51 | Inpatient (IN) ==
[2021-05-18 07:17] LABS: ABS Basophils 0.1 10^3/ul (0-0.2); ABS Lymphocytes 1.3 10^3/ul (1.0-4.8); ABS Monocytes 0.5 10^3/ul (0-0.8); ABS Neutrophils 12.8 10^3/ul (1.5-7.7); Eosinophil % 0.3 %; Hematocrit 41 % (35-47); Mean Corpuscular HGB Conc 34 g/dL (31-36); Mean Corpuscular Hemoglobin 27 pg (27-31); Mean Corpuscular Volume 81 fL (80-97); Mean Platelet Volume 7.3 fL (7.4-10.4); Platelet Count 372 10^3/uL (150-450); Red Cell Distribution Width 17 % (10-15); White Blood Count 14.9 10^3/uL (3.5-10.8)
[2021-05-18] MEDS ORDERED: hydrALAZINE 20 mg/ml 1 ML Vial IV IV SLOW PU ONE (07:26)
[2021-05-18 07:28] LABS: INR 1.07 (0.86-1.15)
[2021-05-18 07:29] LABS: ALT 20 U/L (7-52); AST 29 U/L (13-39); Albumin 4.2 g/dL (3.2-5.2); Albumin/Globulin Ratio 1.3 (1-3); Alkaline Phosphatase 103 U/L (35-149); Anion Gap 17 mmol/L (2-11); Blood Urea Nitrogen 11 mg/dL (6-24); CO2 Carbon Dioxide 20 mmol/L (22-32); Calcium 9.3 mg/dL (8.6-10.3); Chloride 98 mmol/L (101-111); EGFR African American 82.7 (>60); EGFR Non-African American 68.3 (>60); Globulin 3.3 g/dL (2-4); Glucose 221 mg/dL (70-100); Potassium 3.7 mmol/L (3.5-5.0); Sodium 135 mmol/L (135-145); Total Protein 7.5 g/dL (6.4-8.9)
[2021-05-18 07:36] LABS: HCG Pregnancy < 0.60 mIU/mL
[2021-05-18 07:39] LABS: Troponin I 1.53 ng/mL (<0.03)
[2021-05-18] MEDS ORDERED: Heparin DRIP 25,000 UNITS BAG 25,000 UNITS/500 ML BAG IV SCH (07:45)
[2021-05-18 07:57] LABS: Activated Partial Thrombo Time 29.2 seconds (26.0-38.0)
[2021-05-18] MEDS ORDERED: Heparin 5000 UNITS/ML 1 mL VIAL IV SCH (08:00)
[2021-05-18] MEDS ORDERED: Morphine 2 MG/ML SYRINGE IV PRN (08:53)
[2021-05-18] MEDS ORDERED: Ondansetron 4 mg VIAL 2 MG/ML 2 ml VIAL IV PRN ×2 (08:58→13:29)
[2021-05-18] MEDS ORDERED: Al Hydrox/Mg Hydrox/Simet LIQ 30 ML UDC PO PRN (08:58)
[2021-05-18] MEDS ORDERED: Aspirin EC 81 mg TAB.EC (enteric coated) PO SCH (09:00)
[2021-05-18] MEDS ORDERED: dilTIAZem ER 120 mg CAP (NF) PO SCH (09:00)
[2021-05-18] MEDS ORDERED: Dextrose 50% Syringe 50 ml 25 GM/50 ML SYRINGE IV PUSH PRN (09:03)
[2021-05-18 10:32] LABS: Troponin I 6.33 ng/mL (<0.03)
[2021-05-18] MEDS ORDERED: diPHENhydraMINE IV 50 MG/ML 1 ml VIAL (BENADRYL) SLOW PUSH PRN (10:53)
[2021-05-18] MEDS ORDERED: NS 0.9% 1000 ml BAG 1,000 ML IV SCH ×2 (11:00→13:30)
[2021-05-18] MEDS ORDERED: Heparin 1,000 UNIT/ML 10 ml (10,000 UNITS) CATHLAB/DIALYSIS ONE ×2 (11:35→12:54)
[2021-05-18] MEDS ORDERED: Heparin 2 UNITS/ML 1000 mls 2,000 ML IV ONE (11:35)
[2021-05-18] MEDS ORDERED: VERAPAMIL 2.5 MG/ML 2 ML VIAL ** 5 mg/2 ml ONE (11:35)
[2021-05-18] MEDS ORDERED: Midazolam 5 mg/5 ml VIAL 1 mg/ml 5 ml VIAL (5 mg) ONE (11:35)
[2021-05-18] MEDS ORDERED: fentaNYL 100 mcg/2 ml 50 MCG/ML VIAL ONE (11:35)
[2021-05-18] MEDS ORDERED: nitroGLYCERIN DRIP 25,000 MCG/250 ML BTL ONE (11:36)
[2021-05-18] MEDS ORDERED: Iohexol 350 (CONTRAST) 200 ML MDV IV ONE ×3 (11:36→13:09)
[2021-05-18] MEDS ORDERED: Lidocaine 1% VIAL 10 MG/ML VIAL ONE (11:36)
[2021-05-18] MEDS ORDERED: niCARdipine 0.1MG/ML IVPREMIX 20 MG/200 ML BAG IV ONE (11:36)
[2021-05-18] MEDS ORDERED: Prasugrel 10 mg TAB (NF) ONE (12:38)
[2021-05-18] MEDS: Isosorbide Mononit ER 30mg TAB PO SCH (15:31)
[2021-05-18 15:47] LABS: Creatine Kinase 618 U/L (10-223)
[2021-05-18 15:52] LABS: Troponin I 24.74 ng/mL (<0.03)
[2021-05-18 15:53] LABS: CKMB ng/mL 103.5 ng/mL (0.6-6.3)
[2021-05-18 21:37] LABS: Creatine Kinase 536 U/L (10-223)
[2021-05-18 21:41] LABS: Troponin I 20.81 ng/mL (<0.03)
[2021-05-19 02:37] LABS: Creatine Kinase 355 U/L (10-223)
[2021-05-19 02:50] LABS: Troponin I 14.02 ng/mL (<0.03)
[2021-05-19 05:22] LABS: ABS Basophils 0.1 10^3/ul (0-0.2); ABS Eosinophils 0.1 10^3/ul (0-0.6); ABS Lymphocytes 1.7 10^3/ul (1.0-4.8); ABS Monocytes 0.6 10^3/ul (0-0.8); ABS Neutrophils 8.9 10^3/ul (1.5-7.7); Eosinophil % 1.3 %; Hematocrit 37 % (35-47); Hemoglobin 12.5 g/dL (12.0-16.0); Lymphocyte % 15.2 %; Mean Corpuscular HGB Conc 34 g/dL (31-36); Mean Corpuscular Hemoglobin 27 pg (27-31); Mean Corpuscular Volume 81 fL (80-97); Platelet Count 343 10^3/uL (150-450); Red Blood Count 4.59 10^6 /uL (3.70-4.87); Red Cell Distribution Width 17 % (10-15); White Blood Count 11.4 10^3/uL (3.5-10.8)
[2021-05-19 05:40] LABS: Calcium 8.3 mg/dL (8.6-10.3); EGFR African American 120.4 (>60); EGFR Non-African American 99.5 (>60); HDL Cholesterol 27.6 mg/dL; Magnesium 1.7 mg/dL (1.9-2.7); Phosphorus 4.1 mg/dL (2.5-5.0); Potassium 3.7 mmol/L (3.5-5.0)
[2021-05-19] MEDS ORDERED: Potassium Chlor 20 meq TAB.ER PO ONE (07:13)
[2021-05-19] MEDS ORDERED: Magnesium Sulfate IV 3 GM in NS 0.9% 100 ml BAG 100 ML IVPB ONE (07:13)
[2021-05-19] MEDS: CMCS: Prasugrel 10 mg TAB (NF) PO SCH (08:02)
[2021-05-19] MEDS: Isosorbide Mononit ER 30mg TAB PO SCH (08:02)
[2021-05-19] MEDS ORDERED: COVID-19 VACCINE, MRNA(PFIZER)/PF 30 MCG/0.3 ML IM ONE (08:44)
[2021-05-19] MEDS ORDERED: COVID-19 VACCINE, MRNA(MODERNA)/PF 100 MCG/0.5 ML IM ONE (11:00)
[2021-05-20 06:26] LABS: ABS Basophils 0.1 10^3/ul (0-0.2); ABS Eosinophils 0.2 10^3/ul (0-0.6); ABS Lymphocytes 1.8 10^3/ul (1.0-4.8); ABS Monocytes 0.6 10^3/ul (0-0.8); ABS Neutrophils 7.1 10^3/ul (1.5-7.7); Eosinophil % 1.9 %; Hematocrit 37 % (35-47); Hemoglobin 12.1 g/dL (12.0-16.0); Lymphocyte % 18.4 %; Mean Corpuscular HGB Conc 33 g/dL (31-36); Mean Corpuscular Hemoglobin 27 pg (27-31); Mean Corpuscular Volume 83 fL (80-97); Mean Platelet Volume 7.1 fL (7.4-10.4); Nucleated Red Blood Cells % 0.1; Platelet Count 329 10^3/uL (150-450); Red Cell Distribution Width 17 % (10-15); White Blood Count 9.7 10^3/uL (3.5-10.8)
[2021-05-20 06:51] LABS: Calcium 8.5 mg/dL (8.6-10.3); EGFR African American 105.3 (>60); Potassium 4.1 mmol/L (3.5-5.0)
[2021-05-20] MEDS: CMCS: Prasugrel 10 mg TAB (NF) PO SCH (08:05)
[2021-05-20 11:22] VITALS: BP 134/65
== END 2021-05-20 12:52 | disposition home or self-care (01) | DRG 174 ==
LOC: MEDTELE 06:51 → ED 06:51 → SUATTDRO 08:58 → MEDTELE 10:02 → ICU 13:13 → MEDTELE 05-19 16:05
PROVIDERS: ADMIT Internal Medicine; ATTEND Hospitalist